=== PATIENT | female | born 2000 | race Caucasian/White ===

== ENCOUNTER → 2023-06-19 10:14 | Outpatient (BNVA) | payer SELFPAY | DX: Z02.83 Encounter for blood-alcohol and blood-drug test (principal) ==

== ENCOUNTER 2024-06-18 09:46 | Outpatient (AMB) | payer BC, SELFPAY ==
--- NOTE | 2024-06-18 09:55 | AM.OFFWIN_ITS ---
Intake Vital Signs 06/18/24 09:56 Height 5 ft 4 in Weight 147 lb BMI 25.2 BP 116/64 Blood Pressure Location Lt brachial Position Sitting Pulse 69 Pulse Source Pulse Oximeter Temp 98.7 F Temp Source Oral Pulse Oximetry (%) 99 Oxygen Delivery Method Room Air Intake Visit Reasons: SCOUTS- Wants Hep B and TB BW testing Intake Note: pt here requesting bloodwork orders Patient Tobacco Use Status: Never used Tobacco Allergies No Known Allergies Allergy (Verified 06/18/24 09:55) Do you need a note to return to daycare/school/sports/work: No HPI SCOUTS- Wants Hep B and TB BW testing HPI Details This note is constructed using voice recognition software. While every effort has been made to ensure accuracy, installation and service technician errors may have been included. The patient is a 23 year old female who presents to the clinic today with request for screening for hepatitis and tuberculosis for school. 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 She has a new patient appointment with her primary care in August, but could not get 1 sooner, and needs testing results prior to starting her next semester in July. She has had no known exposure to hepatitis-B, has had the immunization series. She does not travel outside the country. She has had no known exposure to tuberculosis. She denies fever, chills, cough, shortness of breath, hemoptysis. [facility] Social History Patient Tobacco Use Status: Never used Tobacco Review of Systems Const All systems reviewed & are unremarkable except as noted in HPI and below Physical Exam Vital Signs: Last Vital Signs Temp 98.7 F 06/18/24 09:56 Pulse 69 06/18/24 09:56 BP 116/64 06/18/24 09:56 Pulse Ox 99 06/18/24 09:56 Oxygen Delivery Method Room Air 06/18/24 09:56 BMI result Body Mass Index 25.2 Const General: cooperative, healthy appearing, comfortable, no acute distress and well developed Orientation/consciousness: patient oriented x3 Limitations: no limitations Resp Effort & Inspection: normal respiratory effort and able to speak in complete sentences Neuro General: patient oriented x3 Assessment & Plan Assessment & Plan (1) Need for hepatitis B screening test: Code(s): Z11.59 - Encounter for screening for other viral diseases Plan: Hepatitis-B surface antibody test ordered for patient screening as necessary school. Advised patient to obtain portal so that she is able to print her results as she will likely need to provide the printed results to her school. (2) Encounter for screening for respiratory tuberculosis: Code(s): Z11.1 - Encounter for screening for respiratory tuberculosis Plan: T spot ordered for screening for respiratory tuberculosis, advised patient to obtain portal so that she will be able to print her results for her school. Plan See above for full details and plan. Orders: Orders Hepatitis B Surface Antibody Today Z11.59 - Encounter for screening for other viral diseases T Spot TB Today Z11.1 - Encounter for screening for respiratory tuberculosis Coding Level of Care Code Est Pt Level 3 (93681) Diagnoses Need for hepatitis B screening test Z11.59 Encounter for screening for respiratory tuberculosis Z11.1
[2024-06-18 09:56] VITALS: BP 116/64; PULSE 69; TEMP 37.1; O2SAT 99; BMI 25.2
== END 2024-06-18 10:30 | disposition home or self-care (01) ==
PROVIDERS: Visit Provider Registered Nurse
DX: Z11.59 Encounter for screening for other viral diseases (principal); Z11.1 Encounter for screening for respiratory tuberculosis
CPT/HCPCS: 99213

== ENCOUNTER 2024-06-18 10:14 | Outpatient (REF) | payer BC, SELFPAY ==
[2024-06-19 03:50] LABS: HBS Num1 47.21 mIU/mL (0-7.99); ~Hepatitis B Surface Antibody REACTIVE (Nonreactive)
[2024-06-21 15:34] LABS: TS Negative Control Passed; TS Panel A 0; TS Panel B 0; TS Positive Control Passed; TSpotTB Negative (Negative)
== END 2024-06-18 10:15 | disposition home or self-care (01) ==
LOC: HO.HMGCLDS 10:14
PROVIDERS: PCP Nurse Practitioner Family; Visit Provider Registered Nurse
DX: Z11.59 Encounter for screening for other viral diseases (principal); Z11.1 Encounter for screening for respiratory tuberculosis
CPT/HCPCS: 36415; 86481; 86706

== ENCOUNTER 2024-07-31 11:06 | Outpatient (AMB) | payer BC, SELFPAY ==
--- NOTE | 2024-07-31 11:13 | MHC.PC.OV ---
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 Is last menstrual period known: Yes Last menstrual period: 07/14/24 Post menopausal: No Patient : No Allergies No Known Allergies Allergy (Verified 07/31/24 11:40) Medication List - Last Reconciled 07/31/24 by Emre Decker CNP alprazolam 0.5 mg PO DAILY PRN dextroamphetamine-amphetamine 30 mg ER 1 cap PO DAILY sertraline 50 mg PO DAILY Tobacco use date assessed: 07/31/24 Dental Screening Dental Screen Date: 07/31/24 Did you have a dental visit in the last 12 months?: Yes Did you have a dental problem in the last 6 months where you did not have access to dental care?: No Was dental information given to patient?: Patient has dentist HPI HPI Comments History of Present Illness Details New patient Prior PCP:?[facility]. Dr. Tracy Last office visit/CPE: Had an extended physical exam about 4-5 months ago Acute issue(s): ADHD -She is dextroamphetamine-amphetamine 30 mg ER 1 cap daily Anxiety and depression -she is on sertraline 50 mg daily and alprazolam 0.5 mg daily as needed She reports controlled anxiety and depressive symptoms She generally sleeps and eats well. She exercises routinely PMHx: ADHD, anxiety, depression SurgHx: Ganglion cyst removal FHx: Dad: HTN, cardiovascular disease, HLD. PGM: Asthma. MGM: Cardiovascular disease, DM, HTN. MGF: Clotting disorder SocHx: Nonsmoker. Drinks alcohol once yearly. No recreational drugs Last pap smear test was with [facility] [place] in 11/2022. She signed a release but records not currently available Last eye exam was 2 years with [facility]. She will call and schedule an appointment for an eye exam She notes that she is sexually active, in a monogamous relationship, and has no concerns for STDs Last tetanus vaccine within the last 5 years [facility] Medical History (Updated 07/31/24 @ 11:56 by Emre Decker CNP) ADHD Depression Anxiety Postural orthostatic tachycardia syndrome [POTS] IBS (irritable bowel syndrome) Surgical History (Updated 07/31/24 @ 11:23 by Jennifer Wetzel) History of surgical removal of ganglion cyst Family History (Updated 07/31/24 @ 11:26 by Jennifer Wetzel) Mother FH: mental illness Paternal Grandmother Asthma Father High blood pressure High cholesterol Cardiovascular disease Maternal Grandmother High blood pressure Diabetes Cardiovascular disease Maternal Grandfather Clotting disorder Social History Housing: House Patient Tobacco Use Status: Never used Tobacco e-Cigarette/Vaping Use: Never Used Second Hand Smoke Exposure: No service: No Current occupational status: student Current occupational exposures/hazards: No Cognitive needs: No Hearing needs: No Vision needs: No Female Reproductive History Menstrual Date of last menstrual period: 07/14/24 Questionnaire PHQ-9 Over the last 2 weeks, how often have you been bothered by any of the following problems? 1. Little interest or pleasure in doing things: not at all 2. Feeling down, depressed, or hopeless: not at all 3. Trouble falling or staying asleep, or sleeping too much: several days 4. Feeling tired or having little energy: not at all 5. Poor appetite or overeating: not at all 6. Feeling bad about yourself - or that you are a failure or have let yourself or your family down: not at all 7. Trouble concentrating on things, such as reading the newspaper or watching television: several days 8. Moving or speaking so slowly that other people could have noticed. Or the opposite - being so fidgety or restless that you have been moving around a lot more than usual: not at all 9. Thoughts that you would be better off or of hurting yourself in some way: not at all Total score: 2 Depression Screening Interpretation: Negative Depression Screening Done: Yes 60444 - PHQ-9 Billing: Yes Source: Developed by Drs. Jack Vásquez, Michelle Ventura, Clayton George and colleagues, with an educational eleonora from [employer]. Thrive Questionnaire Date Thrive assessed: 07/31/24 I am a: Patient What is your living situation today?: I have a steady place to live Within the past 12 months, did the food you bought not last and you didn't have the money to get more?: Never true Within the past 12 months, did you worry whether your food would run out before you got money to buy more?: Never true Do you have trouble paying for medicines?: No Do you have trouble getting transportation to medical appointments?: No Do you have trouble paying your heating and electricity bill?: No Do you have trouble taking care of your child, family member or friend?: No Do you have trouble with day-to-day activities such as bathing, preparing meals, shopping, managing finances, etc.?: No Are you currently unemployed and looking for a job?: No Are you interested in more education?: Yes Please select the resources that you would like help with: Education Currently or been in a relationship where the following occur: No concerns reported THRIVE Score: 0 AUDIT C Alcohol Use Questionnaire (AUDIT-C) 1. How often do you have a drink containing alcohol?: Monthly or less 2. How many drinks containing alcohol do you have on a typical day when you are drinking?: 1 or 2 3. How often do you have six or more drinks on one occasion?: Never Total Score: 1 Score Reviewed/Action Taken: Yes PAUL-7 AMB Questionnaire PAUL-7 Date PAUL - 7 assessed: 07/31/24 Feeling nervous, anxious, or on edge: 1 = Several days Not being able to stop or control worryin = Not at all Worrying too much about different things: 1 = Several days Trouble relaxin = Several days Being so restless that it is hard to sit still: 1 = Several days Becoming easily annoyed or irritable: 2 = More than half the days Feeling afraid as if something awful might happen: 0 = Not at all Total PAUL-7 score (0-4 normal; 5-9 mild; 10-14 moderate; 15-21 severe): 6 Source: Developed by Drs. Jack Vásquez, Michelle Ventura, Clayton George and colleagues, with an educational eleonora from [employer]. PAUL-7 Assessment Billing PAUL-7 Assessment Tool: PAUL-7 Assessment 16851 Review of Systems Const Details: Const Denies chills, Denies fatigue, Denies fever(s), Denies headache(s) and Denies weakness ENT Denies dizziness and Denies headache(s) Card Denies chest pain, Denies lightheadedness, Denies dyspnea and Denies other (Palpitations) Resp Denies cough, Denies dyspnea, Denies wheezing and Denies other ( shortness of breath) GI Denies abdominal pain, Denies melena, Denies hematochezia, Denies change in bowel habits, Denies dyspepsia and Denies nausea Denies hematuria and Denies dysuria Musc Denies abnormal gait, Denies myalgias, Denies arthralgias, Denies numbness and Denies tingling Skin/Breast Denies rash, Denies unusual bruising and Denies wounds Neuro Denies abnormal gait, Denies dizziness, Denies headache(s), Denies memory loss, Denies numbness, Denies Sensory deficit (Neuro), Denies tingling and Denies weakness Psych Denies anxiety, Denies depression, Denies memory loss Endo Denies cold intolerance, Denies fatigue, Denies heat intolerance, Denies polydipsia and Denies polyuria Aller/Immun Denies wheezing Physical exam (Primary Care) Vital Signs: Last Vital Signs Temp 97.6 F 07/31/24 11:18 Pulse 76 07/31/24 11:18 Resp 16 07/31/24 11:18 BP 104/72 07/31/24 11:18 Pulse Ox 99 07/31/24 11:18 Oxygen Delivery Method Room Air 07/31/24 11:18 BMI result Body Mass Index 25.1 Tobacco/Smoking Status: Tobacco use Status Tobacco use date assessed 07/31/24 07/31/24 11:18 Patient Tobacco Use Status Never used Tobacco 07/31/24 11:15 e-Cigarette/Vaping Use Never Used 07/31/24 11:18 PHQ-9: PHQ-9 Score PHQ-9: Total score 2 07/31/24 11:28 Depression Screening Interpretation: Negative Thrive Assessment: Date of Thrive Assessment Date Thrive assessed 07/31/24 07/31/24 11:28 Currently or been in a relationship where the following occur: No concerns reported Const Other: General: no acute distress and well developed Nutritional Appearance: well nourished Orientation/consciousness: patient oriented x3 HENMT Head: Yes normocephalic and Yes atraumatic Eyes General: appearance normal, both eyes and all related structures Pupils: Equal, round and reactive pupils present EOM: EOMs intact bilaterally Resp Effort & Inspection: normal respiratory effort Auscultation: clear to auscultation bilaterally Cardio Rate: regular rate Rhythm: regular rhythm Heart sounds: S1 normal heart sound present, S2 normal heart sound present, no gallops, no murmurs and no rubs GI Palpation (GI): No Abdominal aortic bruit present, Soft to palpation, nontender, No hepatosplenomegaly present and No Rebound tenderness present Auscultation: normal bowel sounds General: Yes no CVA tenderness Back/Spine/Pelvis Back: no CVA tenderness Cervical Spine: cervical ROM normal and No Cervical spine tenderness Thoracic/Lumbar Spine: thoraco-lumbar ROM normal, No pain with thoraco-lumbar ROM, No thoracic spinal tenderness and No lumbar spinal tenderness Extrem General: Yes normal to inspection, No edema and No calf tenderness Skin General: warm and dry. Normal skin color. Normal skin turgor Lesions: no lesions Rashes: no rashes Trauma: no lacerations or abrasions Wounds: no wounds Nails: normal Neuro General: patient oriented x3, gait normal and no focal neuro deficit Cranial nerves: Yes Equal, round and reactive pupils present Cognition (Neuro): normal cognition Gait exam (Neuro): Normal gait present Sensory Exam: No Sensory deficit (Neuro) Psych Appearance: grossly normal Affect: normal affect Attitude: cooperative Thought process: Normal thought process present Assessment and Plan Assessment & Plan (1) Anxiety: Code(s): F41.9 - Anxiety disorder, unspecified Plan: She reports controlled anxiety and depressive symptoms PAUL-7 score revealed mild anxiety. PHQ-9 score is normal Continue current treatment regimen Routine exercise encouraged Advised to get lab work done and follow-up in 2-3 weeks for labs review or return sooner with symptoms or concerns Verbalized understanding and agreed with the plan (2) Depression: Code(s): F32.A - Depression, unspecified Plan: Plan as above (3) ADHD: Code(s): F90.9 - Attention-deficit hyperactivity disorder, unspecified type Plan: Plan as above Dextroamphetamine-amphetamine 30 mg ER daily refilled. Advised to take as prescribed (4) Laboratory tests ordered as part of a complete physical exam (CPE): Code(s): Z00.00 - Encounter for general adult medical examination without abnormal findings Plan: She notes that she has not had routine lab work done in over a year. Fasting labs ordered as in preparation of a complete physical exam. Advised to fast for at least 10 hours before getting labs drawn. May drink water Verbalized understanding and agreed with treatment plan. Orders: Orders Comprehensive [place]. Panel Fast Today Z00.00 - Encounter for general adult medical examination without abnormal findings TSH reflex Free T4 Today Z00.00 - Encounter for general adult medical examination without abnormal findings Complete Blood Count Auto Diff Today Z00.00 - Encounter for general adult medical examination without abnormal findings Lipid Panel Today Z00.00 - Encounter for general adult medical examination without abnormal findings UA CC w/rflx Micro + Cult Today Z00.00 - Encounter for general adult medical examination without abnormal findings Medications: Changed From dextroamphetamine-amphetamine 30 mg ER 1 cap PO DAILY 0RF To dextroamphetamine-amphetamine 30 mg ER 1 cap PO DAILY 28 days 28 caps 0RF Coding Level of Care Code New Pt Level 4 (88989) Diagnoses Anxiety F41.9 Depression F32.A ADHD F90.9 Laboratory tests ordered as part of a complete physical exam (CPE) Z00.00 Additional Codes PAUL-7 Assessment Billing - PAUL-7 Assessment Tool: PAUL-7 Assessment 43054 ([id number])
[2024-07-31 11:18] VITALS: BP 104/72; PULSE 76; RESP 16; TEMP 36.4; O2SAT 99; BMI 25.1
== END 2024-07-31 11:57 | disposition home or self-care (01) ==
PROVIDERS: PCP Nurse Practitioner Family; Visit Provider Nurse Practitioner Family
DX: F41.9 Anxiety disorder, unspecified (principal); F32.A Depression, unspecified; F90.9 Attention-deficit hyperactivity disorder, unspecified type; Z00.00 Encounter for general adult medical examination without abnormal findings

== ENCOUNTER → 2024-07-31 11:06 | Outpatient (BNVA) | payer BC, SELFPAY | PROVIDERS: PCP Nurse Practitioner Family; Visit Provider Nurse Practitioner Family | DX: Z00.00 Encounter for general adult medical examination without abnormal findings (principal); F41.9 Anxiety disorder, unspecified; F32.A Depression, unspecified; F90.9 Attention-deficit hyperactivity disorder, unspecified type; Z79.899 Other long term (current) drug therapy | CPT/HCPCS: 96127 ==

== ENCOUNTER 2024-08-17 10:22 | Outpatient (REF) | payer BC, SELFPAY ==
[2024-08-17 13:37] LABS: MANUAL DIFF FLAG NO
[2024-08-17 13:41] LABS: Basophils Percent Auto 0.7 % (0-2); Eosinophils Absolute Auto 0.1 X10*3/uL (0.0-0.4); Eosinophils Percent Auto 1.5 % (0-4); Hematocrit 39.3 % (37.0-47.0); Imm Gran Abs Auto 0.01 X10*3/uL (0.00-0.03); Imm Gran Pct Auto 0.2 % (0.0-0.4); Lymphocytes Absolute Auto 2.2 X10*3/uL (1.2-4.9); Lymphocytes Percent Auto 35.7 % (20-40); Mean Corpuscular HGB Conc 33.1 g/dl (31.0-35.0); Mean Corpuscular Hemoglobin 30.5 pg (27.0-33.0); Mean Corpuscular Volume 92.3 fL (80.0-98.0); Mean Platelet Volume 11.5 fL (9.4-12.3); Monocytes Absolute Auto 0.4 X10*3/uL (0.1-1.2); Monocytes Percent Auto 6.2 % (2-11); Neutrophils Absolute Auto 3.4 x10*3/uL (2.0-8.3); Neutrophils Percent Auto 55.7 % (45-73); Platelet Count 271 X10*3/uL (160-400); Red Blood Count 4.26 X10*6/uL (4.20-5.50); White Blood Count 6.1 X10*3/uL (4.8-10.8)
[2024-08-17 13:56] LABS: Appearance Urine Clear; Color Urine Yellow; Glucose Urine UA Negative (Negative); Leukocyte Esterase Urine Negative (Negative); Nitrite Urine Negative (Negative); PH 5.5 (5.0-9.0); Specific Gravity - Urine 1.025 (1.005-1.025); Urine Blood Negative (Negative); Urine Ketones Negative (Negative); Urine Protein Negative (Neg-Trace)
[2024-08-17 13:59] LABS: Alanine Aminotransferase 9 U/L (0-31); Albumin Level 4.6 g/dL (3.5-5.0); Alkaline Phosphatase 43 U/L (39-117); Anion Gap 11 (12-20); Aspartate Amino Transferase 14 U/L (5-31); Bilirubin Total 1.5 mg/dL (0.0-1.0); Blood Urea Nitrogen 11 mg/dL (9-16); Calcium 10.5 mg/dL (8.4-10.2); Carbon Dioxide 25 mmol/L (22-29); Chloride 107 mmol/L (96-108); Cholesterol 123 mg/dL (<200); Estimated Glomerular Filt Rate > 60; Glucose Fasting 78 mg/dL (60-99); HDL Cholesterol 42 mg/dL (>40); LDL Cholesterol Calculated 71 mg/dL (<100); Potassium 4.1 mmol/L (3.3-5.1); Sodium 139 mmol/L (135-145); Total Protein 7.4 g/dL (6.5-8.0); Triglycerides 54 mg/dL (<150)
[2024-08-17 14:15] LABS: TSH reflex Free T4 0.68 uIU/mL (0.32-4.0)
== END 2024-08-17 10:23 | disposition home or self-care (01) ==
LOC: HO.WFDLDS 10:22
PROVIDERS: Visit Provider Nurse Practitioner Family
DX: Z00.00 Encounter for general adult medical examination without abnormal findings (principal); Z20.2 Contact with and (suspected) exposure to infections with a predominantly sexual mode of transmission
CPT/HCPCS: 36415; 80053; 80061; 81003; 84443; 85025

== ENCOUNTER 2024-08-19 15:47 | Outpatient (AMB) | payer BC, SELFPAY ==
--- NOTE | 2024-08-19 08:33 | A.OFFPC_ITS ---
Intake Visit Reasons: 2-3 wks labs review Intake Note: [facility] [employer] Required: No Allergies No Known Allergies Allergy (Verified 08/19/24 15:46) Tobacco use date assessed: 07/31/24 Dental Screening Dental Screen Date: 07/31/24 HPI HPI Comments History of Present Illness Details 23-year-old female presents for a tele alth visit for review recent lab work She admits to taking her medications as prescribed without adverse reactions She offers no complaints and denies acute symptoms at this time [facility] Medical History (Updated 08/19/24 @ 08:34 by Emre Decker CNP) ADHD Depression Anxiety Postural orthostatic tachycardia syndrome [POTS] IBS (irritable bowel syndrome) Surgical History (Updated 07/31/24 @ 11:23 by Jennifer Wetzel MA) History of surgical removal of ganglion cyst Family History (Updated 07/31/24 @ 11:26 by Jennifer Wetzel MA) Mother FH: mental illness Paternal Grandmother Asthma Father High blood pressure High cholesterol Cardiovascular disease Maternal Grandmother High blood pressure Diabetes Cardiovascular disease Maternal Grandfather Clotting disorder Social History Housing: House Patient Tobacco Use Status: Never used Tobacco e-Cigarette/Vaping Use: Never Used Second Hand Smoke Exposure: No service: No Current occupational status: student Current occupational exposures/hazards: No Cognitive needs: No Hearing needs: No Vision needs: No Questionnaire Thrive Questionnaire Date Thrive assessed: 07/31/24 PAUL-7 AMB Questionnaire PAUL-7 Date PAUL - 7 assessed: 07/31/24 Source: Developed by Drs. Jack Vásquez, Michelle Ventura, Clayton George and colleagues, with an educational eloenora from [employer]. Review of Systems Const Details: Const Denies chills, Denies fatigue, Denies fever(s), Denies headache(s) and Denies weakness ENT Denies dizziness and Denies headache(s) Card Denies chest pain, Denies lightheadedness, Denies dyspnea and Denies other (Palpitations) Resp Denies cough, Denies dyspnea, Denies wheezing and Denies other ( shortness of breath) GI Denies abdominal pain, Denies melena, Denies hematochezia, Denies change in bowel habits, Denies dyspepsia and Denies nausea Denies hematuria and Denies dysuria Musc Denies abnormal gait, Denies myalgias, Denies arthralgias, Denies numbness and Denies tingling Skin/Breast Denies rash, Denies unusual bruising and Denies wounds Neuro Denies abnormal gait, Denies dizziness, Denies headache(s), Denies memory loss, Denies numbness, Denies Sensory deficit (Neuro), Denies tingling and Denies weakness Psych Denies anxiety, Denies depression, Denies memory loss Endo Denies cold intolerance, Denies fatigue, Denies heat intolerance, Denies polydipsia and Denies polyuria Aller/Immun Denies wheezing Physical exam (Primary Care) Tobacco/Smoking Status: Tobacco use Status Tobacco use date assessed 07/31/24 08/19/24 08:36 Patient Tobacco Use Status Never used Tobacco 08/19/24 08:36 e-Cigarette/Vaping Use Never Used 08/19/24 08:36 Thrive Assessment: Date of Thrive Assessment Date Thrive assessed 07/31/24 08/19/24 08:36 Const Other: Telehealth visit. No physical exam Telehealth Telehealth Telehealth Platform: Telephone Location of provider rendering services: practice address Location of patient: address on file Patient Identification confirmed using: Name, : Yes Telehealth method: voice only Patient verbally consented to treatment: Yes Patient verbally consented to billing insurance company: Yes Patient informed of any privacy concerns related to visit: Yes Coding Level of Care Code Tele Est Pt Level 3 (77959) Diagnoses Hypercalcemia E83.52 Hyperbilirubinemia E80.6 Time Spent (min) 15 Assessment & Plan Assessment & Plan (1) Hypercalcemia: Code(s): E83.52 - Hypercalcemia Category: Medical Plan: Recent calcium level is slightly elevated, 10.5 No acute symptoms Likely due to diet rich in vitamin-D. She denies consuming dairy Will recheck calcium levels and make changes as needed Advised to follow-up in 3 months for anxiety, depression, and ADHD or sooner with symptoms or concerns Verbalized understanding and agreed with the plan (2) Hyperbilirubinemia: Code(s): E80.6 - Other disorders of bilirubin metabolism Category: Medical Plan: Recent bilirubin level is slightly elevated, 1.5 No acute symptoms Normal liver function Gilbert syndrome is likely Will recheck bilirubin level Verbalized understanding and agreed with the plan Orders: Orders Calcium Today E83.52 - Hypercalcemia Bilirubin Total Today E80.6 - Other disorders of bilirubin metabolism
== END 2024-08-19 16:08 | disposition home or self-care (01) ==
LOC: HO.HMCFM 15:47
PROVIDERS: PCP Nurse Practitioner Family; Visit Provider Nurse Practitioner Family
DX: E83.52 Hypercalcemia (principal); E80.6 Other disorders of bilirubin metabolism

== ENCOUNTER → 2024-08-19 15:47 | Outpatient (BNVA) | payer BC, SELFPAY | PROVIDERS: PCP Nurse Practitioner Family; Visit Provider Nurse Practitioner Family ==

== ENCOUNTER 2024-12-22 11:10 | Outpatient (REF) | payer BC, SELFPAY ==
--- OUTSIDE RECORDS SUMMARY | 2024-12-22 12:22 | XMS_ITS | Data Portability ---
Author Organization [facility] [address] Address [address] [place] [address] Assessment No assessment recorded. Plan of Treatment Reminders Order Date Submit Date Provider Last Modified By Organization Details Last Modified Time Details Appointments None record ed. Lab None record ed. Referral None record ed. Procedures None record ed. Surgeries None record ed. Imaging None record ed. Medication Orders None record ed. Patient TargetsNo targets recorded. Patient Instructions Encounter Date Encounter Id Patient Instructions Last Modified By Organization Details Last Modified Time 12/01/2022 [id number] This physical does not replace the annual physical to be performed by your PCP. There may be additional screening tests that they will perform that we do not in the urgent care setting. Failure to follow up as recommended may result in significant adverse health consequences. ? If your symptoms worsen or you develop new symptoms that concern you, go to the emergency department for further evaluation. juliet Not available 12/01/2022 12:40:10 Reason for Referral None Reported. Procedures Surgical History Date Name Laterality Status Provider Name and Address Organization Details Recorded Time OC- Physical completed [facility] 12/01/2022 12:22:20 Imaging Results None recorded. Procedure Notes None recorded. Medical Equipment None Reported. Medications Name Sig Start Date Stop Date Status Note LastModified by Organization Details LastModified Time azithromycin 250 mg tablet TAKE 2 TABLETS BY MOUTH FOR 1 DAY THEN TAKE 1 TABLET BY MOUTH DAILY FOR 4 DAYS active Not Available Not Available N ot Available sertraline 100 mg tablet active Not Available Not Available Not Available dextroamphet amine-amphet amine ER 20 mg 24hr capsule,exte nd release active Not Available Not Available N ot Available sertraline 25 mg tablet active Not Available Not Available Not Available dextroamphet amine-amphet amine ER 10 mg 24hr capsule,exte nd release active Not Available Not Available N ot Available polyethylene glycol 3350 17 gram/dose oral powder active Not Available Not Available Not Available SSD 1 % topical cream APPLY TOPICALLY TO THE AFFECTED AREA TWICE DAILY FOR 3 DAYS active Not Available Not Available No t Available lactulose 10 gram/15 mL oral solution TAKE 30 ML BY MOUTH TWICE DAILY active Not Available Not Available Not Available Gavilyte-C 240 gram-22.72 gram-6.72 gram-5.84 gram oral solution MIX AND DRINK IN 8-OUNCE INCREMENTS BY MOUTH DIRECTED active Not Available Not Available No t Available Metamucil 0.4 gram capsule TAKE 1 CAPSULE DAILY START WHEN WEANING THE MIRALAX active Not Available Not Available No t Available Vitals None Recorded Social History None recorded. Functional Status None recorded. Mental Status None recorded. Family History Nothing Reported. Medical History No medical history recorded. Gynecological HistoryNo gynecological history recorded. Obstetrics History GPAL:G 0 P 0 0 0 0 Past Encounters Encounter ID Performer Location Encounter Start Date Encounter Closed Date Diagnosis/Indication Diagnosis SNOMED-CT Code Diagnosis ICD10 Code Diagnosis Note [id number] [address] [facility] [address] [place] [address] 02/18/2020 16:20:13 02/18/2020 16:48:25 [id number] [address] [place] [address] 09/21/2021 13:17:47 09/21/2021 15:24:59 [id number] [place] [address] [facility] [address] [place] [address] 12/01/2022 11:58:27 12/01/2022 12:42:51 History and physical examination, pre-employment [id number] Z02.1 Health Concerns Section Related Observation LastModified by Organization Detai ls LastModified Time None Recorded Concern Status LastModified by Organization Details LastModified Time None Recorded Advance Directives Directive None Recorded Payers Encounter Date Sequence Insurance Name Policy Number Policy Neil Covered Member ID Neil Member ID Guarantor Name 02/18/2020 1 [facility] [id number] Danyell Barahona [id number] Danyell [place] 12/01/2022 DO NOT USE Danyell Brooklyn PHYSICAL Danyell [place] Notes Date Note Type Note Provider Name a nd Address Organization Details Recorded Time 12/01/2022 text/html physical Daniele Zendejas NP [address] [place], [address], [place] - [facility] 12/01/2022 12:40:29 OBGyn Episode No OBEpisode recorded.
--- OUTSIDE RECORDS SUMMARY | 2024-12-22 12:22 | XMS_ITS ---
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 Physical Encounters Encounter Location Date Provider Diagnosis [facility] [address] [place] [address] 08/23/2023 MIKE DUNNE Encounter for gynecological examination (general) (routine) without abnormal findings Z01.419 and Encounter for screening for infections with a predominantly sexual mode of transmission Z11.3 Assessments Encounter Date Diagnosis (ICD Code) Assessment Notes Treatment Notes Treatment Clinical Notes Section Notes 08/23/2023 Encounter for gynecological examination (general) (routine) without abnormal findings (ICD-10 - Z01.419) Discussed cervical cancer screening with cytology every 3 years as per ASCCP guidelines. Advised continued annual pelvic exams. Patient encouraged to increase her level of exercise. SBE technique encouraged/tau ght. Safe sexual practices and STI prevention discussed. 08/23/2023 Encounter for screening for infections with a predominantly sexual mode of transmission (ICD-10 - Z11.3) Plan Of Treatment Treatment Notes Assessment Notes Encounter for gynecological examination (general) (routine) without abnormal findings Discussed cervical cancer screening with cytology every 3 years as per ASCCP guidelines. Advised continued annual pelvic exams. Patient encouraged to increase her level of exercise. SBE technique encouraged/taught. Safe sexual practices and STI prevention discussed. Next Appt Details Follow Up: 1 Year, Reason: Y early Delivery And Installation Subcontractor Exam Provider Name:MIKE Morataya, 12/31/2024 09:00:00 AM, [address], [address], [place], [address], Progress Notes * MARCY MCINTOSHOB:2000 (24 yo F)Acc No.[id number]:08/23/2023 PROGRESS NOTES Patient:?EULOGIO MCINTOSH Provider:?MIKE DUNNE MD :2000???Age:22 Y???Sex:Female D ate:08/23/2023 Address:[address] [place], [place] [id number] Subjective: * Chief Complaints: * ???1. Annual COTTON SEED CULLER Physical. * HPI: ???Constitutional:? Eulogio is a 22yo G0 with LMP x/x/x who presents for her yearly obgyn nurse annual exam. She has been in state of good health since her last exam. She has the following concerns: . She has received the [employer] Covid-19 vaccine. Relationship status: for years. She {IS/IS NOT:} sexually active. Sexual partner(s): male. She does wish to have STI testing. She accepts CDC-recommended GC/CT screening. Menses: Contraception: OCPs (Sprintec) started in 05/2023. She is remembering to take them. She has Kyleena IUD, inserted in 09/2021. We will remove IUD today. She requests removal due to the lengthy periods she was having with Kyleena. The patient has not yet begun screening for cervical cancer - first pap today . The patient does exercise. She exercises x days/week by . . * ROS:?Annual Delivery And Installation Subcontractor Exam ROS:?Bowel habit changes?denies.?Bladder symptoms?denies.?Vaginal discharge, unusual?denies.?Vaginal itch or odor?denies.?weight or appetite changes?denies.?Chest pains, SOB?denies.?depression?denies.?Breast:?Denies?Breast lump.?Denies?Nipple discharge.?Hematology:?Denies?Swollen glands.?Skin:?Patient denies?changing moles.?Psychiatric:?Denies?Anxiety.? * Medical History:?Attention a nd concentration deficit. * Delivery And Installation Subcontractor History:?/ Para?0/0.?Sexual activity?currently sexually active, with men.?Last Pap Smear:?Pap not indicated due to age.?Mammogram:?not due per age.?LMP and menses?04/13/23.?History of STD's:?None.? Control:?Kyleena intrauterine device placed 09/10/21.?Menarche?13.?Gardasil:?series completed.? * OB History:?Total pregnancies?.? Objective: * Vitals:? * Examination: ???General Examination: ?GENERAL APPEARANCE:?in no acute distress,well developed, well nourished,drawing supervisor present in room.?HEAD:?normocephalic, atraumatic.?NECK/THYROID:?neck supple, full range of motion,thyroid normal.?LYMPH NODES:?no axillary or supraclavicular adenopathy.?SKIN:?normal,good turgor,no rashes,no suspicious lesions.?BREASTS:?normal,no dimpling,no discharge,no drainage,no masses palpable bilaterally,nontender.?ABDOMEN:?soft, non-tender, non distended without masses or hepatosplenomegay.?BACK:?no costovertebral angle tenderness.?FEMALE GENITOURINARY:?Vulva without lesions or masses, vagina pink without abnormal discharge, lesions or masses, cervix appears normal and is not tender to palpation, uterus is normal size, mobile, nontender and anteverted, ovaries are not palpable.?NEUROLOGIC:?alert and oriented,gait normal.?PSYCH:?alert, oriented,cognitive function intact,cooperative with exam,good eye contact,mood/affect full range,speech clear.? Assessment: * Assessment: 1.?Encounter for gynecologic al examination (general) (routine) without abnormal findings - Z01.419 (Primary)???2.?Encounter for screening for infections with a predominantly sexual mode of transmission - Z11.3??? Plan: * Treatment: * Follow Up:?1 Year (Reason: Y early Delivery And Installation Subcontractor Exam) * Images: Billing Information: * Visit Code:? 60561 Preventive Care Est Pt. Age 18-39. * Procedure Codes:? * Electronic signature of MIKE DUNNE MD on 12/22/2024 at 12:22 PM EST Sign off status: Pending * Provider:?MIKE DUNNE MD Date:?2022 Generated for Nasreen bailey/Annita/eTransmitting on:?12/22/2024 12:22 PM EST History and Physical Notes * HPI (History of Present Illness) Category Sub-Category Detail Notes Category Not es Constitutional Eulogio is a 22yo G0 with LMP x/x/x who presents for her yearly obgyn nurse annual exam. She has been in state of good health since her last exam. She has the following concerns: . She has received the [employer] Covid-19 vaccine. Relationship status: for years. She {IS/IS NOT:} sexually active. Sexual partner(s): male. She does wish to have STI testing. She accepts CDC-recommended GC/CT screening. Menses: Contraception: OCPs (Sprintec) started in 05/2023. She is remembering to take them. She has Kyleena IUD, inserted in 09/2021. We will remove IUD today. She requests removal due to the lengthy periods she was having with Kyleena. The patient has not yet begun screening for cervical cancer - first pap today . The patient does exercise. She exercises x days/week by . Examination Category Sub-Category Detail Notes Category Not es General Examination GENERAL APPEARANCE: in no ac ugashik distress, well developed, well nourished, drawing supervisor present in room HEAD: normocephalic, atrau matic [...] normal and is not tender to palpation, uterus is normal size, mobile, nontender and anteverted, ovaries are not palpable
--- OUTSIDE RECORDS SUMMARY | 2024-12-22 12:22 | XMS_ITS ---
Author Name [facility] Organization Unknown History of Medication Use Medication Directions Dispensed Refills Start Date End Date Stat us fluticasone (FloNASE) 50 mcg/spray nasal spray 1 spray into each nostril daily. 06/23/2024 active levonorgestrel (Kyleena) 19.5 MG IUD IUD by Intrauterine route. active amphetamine-dextroamp hetamine (ADDERALL XR) 30 MG 24 hr capsule TAKE 1 CAPSULE BY MOUTH DAILY IN THE MORNING 06/05/2024 active sertraline (ZOLOFT) 50 MG tablet Take 50 mg by mouth. 04/22/2024 active predniSONE (DELTASONE) 20 MG tablet Take 1 tablet (20 mg total) by mouth 2 (two) times a day. With food. 06/23/2024 06/27/2024 active Problems Problem Status Onset Date Problem Type Date of Resoluti on Source Acute bacterial sinusitis active EncounterDiagnosisAct [facility]
--- OUTSIDE RECORDS SUMMARY | 2024-12-22 12:22 | XMS_ITS | Encounter Summary ---
Author Organization [facility] Address [address] [place], [place] [address] Phone Care Team Providers Care Blacksmith Helper Name Role Phone Provider, López JENKINS Primary Care Provider [phone] Reason for Visit * Reason Onset Date Comments Med Refill 10/07/2020 Encounter Details Date Type Department Care Team (Late st Contact Info) Description 10/07/2020 [facility]ill [facility] [address] [address] Fabi Shaffer NP Anxiety and depression Social History Tobacco Use Types Packs/Day Years Used Date Smoking Tobacco: Never Smokeless Tobacco: Never Alcohol Use Standard Drinks/Week Comments No 0 (1 standard drink = 0.6 oz pur e alcohol) Hunger/Food Answer Date Recorded No 07/30/2020 Stable Housing Answer Date Recorded No 07/30/2020 Transportation Concerns Answer Date Rec orded No 07/30/2020 Hazards in Home Answer Date Recorded No 09/19/2020 Financing Utilities Answer Date Recorde d No 09/19/2020 Safety at Home Answer Date Recorded No 09/19/2020 Outside Support Answer Date Recorded No 09/19/2020 Understanding Health Concerns Answer Da te Recorded No 09/19/2020 Financing Health Concerns Answer Date R ecorded No 09/19/2020 Missing School or Work Answer Date Robbie rded No 09/19/2020 Comments No Sex and Gender Information Value Date Recorded Sex Assigned at Female 09/23/2019 1:55 PM EST Legal Sex Female 6:15 PM EDT Gender Identity Female 09/23/2019 1:55 PM EST Sexual Orientation Straight 09/23/2019 1: 55 PM EST documented as of this encounter Plan of Treatment Not on file documented as of this encounter Visit Diagnoses Diagnosis Anxiety and depression documented in this encounter Care Teams Blacksmith Helper Relationship Specialty Start Date End Date Provider, MD López [address] [place] [address] PCP - General Pediatrics 11/12/22 08/31/24 documented as of this encounter
--- OUTSIDE RECORDS SUMMARY | 2024-12-22 12:23 | XMS_ITS ---
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 Annual PHARMACY TECHNICIAN INPATIENT Physical. 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 ? She has been in state of good health since her last exam. She has the following concerns: none* ? She has received the Linkage Covid-19 vaccine. ? Relationship status: *partnered for 4 years. She is sexually active. Sexual partner(s): male. She does not wish to have STI testing. She accepts CDC- recommended GC/CT screening. ? Menses: *every 1-2 months, lasting about a week, intermittent flow. ? Contraception:? Kyleena IUD, inserted in 09/2021. ? The patient has never had an abnormal pap smear. The most recent pap smear was 11/29/23 - NIL. Next due for pap in 2026. ? The patient does* exercise. She exercises x 2-3 days/week by doing Pilates at home. 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 * Medical History:? Objective: * Vitals:? * Examination: ???General Examination: ?GENERAL APPEARANCE:?in no acute distress,well developed, well nourished,supervisor dry cell assembly present in room.?HEAD:?normocephalic, atraumatic.?NECK/THYROID:?neck supple, full range [...] range,speech clear.? Assessment: * Assessment: 1.?Encounter for screening f or infections with a predominantly sexual mode of transmission - Z11.3???2.?Encounter for gynecological examination (general) (routine) without abnormal findings - Z01.419 (Primary)???3.?Presence of (intrauterine) contraceptive device - Z97.5??? Plan: * Treatment: 2.?Presence of (intrauterine ) contraceptive device? Notes: Continue Kyleena until 09/2026 or desires conception?? * Follow Up:?1 Year (Reason: Y early Elementary Classroom Teacher Exam) * Images: Billing Information: * Visit Code:? 80570 Preventive Care Est Pt. Age 18-39. * Procedure Codes:? * Electronic signature of MIKE DUNNE MD on 12/22/2024 at 12:23 PM EST Sign off status: Pending * Provider:?MIKE DUNNE MD Date:?2024 Generated for Nasreen bailey/Annita/eTransmitting on:?12/22/2024 12:23 PM EST History and Physical Notes * HPI (History of Present Illness) Category Sub-Category Detail Notes Category Not es Constitutional Eulogio is a 23yo G0 with LMP who presents for her yearly reception specialist annual exam. She has been in state of good health since her last exam. She has the following concerns: none* She has received the Linkage Covid-19 vaccine. Relationship status: *partnered for 4 [...] General Examination GENERAL APPEARANCE: in no ac [place] distress, well developed, well nourished, supervisor dry cell assembly present in room HEAD: normocephalic, atrau matic [...]
--- OUTSIDE RECORDS SUMMARY | 2024-12-22 12:23 | XMS_ITS ---
Author Organization [facility], [facility] Address [address], [place] [id number] Care Team Providers Care Cleaning Custodian Name Role Phone ISIAH SIMENTAL Primary Care Provider Kinsey Ortiz [phone] REASON FOR VISIT f/u ADHD SOCIAL HISTORY Sex Assigned At : Social History Observation Description Sex Assigned At Female Encounters Encounter Location Date Provider Diagnosis [facility], [facility] [address], [place] [phone] 06/09/2024 Kinsey Ortiz PLAN OF TREATMENT No Information Progress Notes * MARCY MCINTOSHOB:2000 (24 yo F)Acc No.[id number]:06/09/2024 Progress Notes Patient:??EULOGIO MCINTOSH Provider:??Kinsey Ortiz DNP :2000?Age:23 Y?Sex:Fe male Date:06/09/2024 Phone: Address:[address] [place], [place] [address] Pcp:ISIAH SIMENTAL Subjective: * Chief Complaints: * ?1. f/u ADHD. * Medical History:?? Objective: Assessment: Plan: * Treatment: * Billing Information: * Visit Code:?? * Procedure Codes:?? * Sign off status: Pending * Provider:??Kinsey Ortiz DNP Date:??04/2024
--- OUTSIDE RECORDS SUMMARY | 2024-12-22 12:23 | XMS_ITS | Patient Health Record ---
Author Organization [employer] Address [address] [place] [id number] Care Team Providers Care Pickling Machine Operator Name Role Phone KAMILLEISIAH Primary Care Provider Kinsey Ortiz Unavailable [phone] ALLERGIES No Known Allergies RESULTS Component Value Reference Range Notes CHLAMYDIA/N. GONORRHOEAE RNA , TMA, UROGENITAL (15634) Reviewed date:02/25/2024 08:27:29 AM Interpretation: Performing Lab:NL2, [facility] [id number] Terrie Smith Notes/Report: FASTING:UNKNOWN SPECIMEN DROPPED OFF FASTING: UNKNOWN CHLAMYDIA TRACHOMATIS RNA, TMA, UROGENITAL NOT DETECTED NOT DETECTED NEISSERIA GONORRHOEAE RNA, TMA, UROGENITAL NOT DETECTED NOT DETECTED COMMENT The analytical performance characteristics of this assay, when used to test SurePath(TM) specimens have been determined by [facility]. The modifications have not been cleared or approved by the FDA. This assay has been validated pursuant to the CLIA regulations and is used for clinical purposes. For additional information, please refer to https://education.[employer].com/faq/VMJ913 (This link is being provided for information/ educational purposes only.) REASON FOR REFERRAL No Information MEDICATIONS Medication SIG (Take, Route, Frequency, Duration) Notes Start Date End Date Status Cephalexin 500 MG 1 capsule Orally Fou r times a day for 7 days Not-Takin g Amphetamine-Dextroamphet ER 30 MG 1 capsule in the morning Orally Once a day for 28 days 06/05/2024 Active Sertraline HCl 50 MG 1 tablet Orally Onc e a day for 90 days 02/26/2024 Active Sulfamethoxazole-Trimeth oprim 800-160 MG 1 tablet Orally Twice a day Not-Taking ALPRAZolam 0.5 MG 1 tablet Orally once a day for 15 days 03/17/2024 Active SOCIAL HISTORY Tobacco Use: Social History Observation Description Date Details (start date - stop date) Never Smoker NA - NA Sex Assigned At : Social History Observation Description Sex Assigned At Female Tobacco Use/Smoking Question Answer Notes Tobacco use: nonsmoker Section Notes: Lives in [place], [place] with boyfriend, mom & brother & brother's girlfriend & MGMother Lives in [place], [place] with boyfriend, mom & brother & brother's girlfriend & MGMother Lives in [place], [place] with boyfriend, mom & brother & brother's girlfriend & MGMother Lives in [place], [place] with boyfriend, mom & brother & brother's girlfriend & MGMother Lives in [place], [place] with boyfriend, mom & brother & brother's girlfriend & MGMother Lives in [place], [place] with boyfriend, mom & brother & brother's girlfriend & MGMother Lives in [place], [place] with boyfriend, mom & brother & brother's girlfriend & MGMother Lives in [place], [place] with boyfriend, mom & brother & brother's girlfriend & MGMother Lives in [place], [place] with boyfriend, mom & brother & brother's girlfriend & MGMother Lives in [place], [place] with boyfriend, mom & brother & brother's girlfriend & MGMother Lives in [place], [place] with boyfriend, mom & brother & brother's girlfriend & MGMother PROBLEMS Problem Type ICD Code Onset Dates Problem Status W/U Status Risk SNOMED Code Notes Problem Mixed hyperlipidemia (E78.2) Active confirmed 585021189 Problem ADHD (attention deficit hyperactivity disorder), combined type (F90.2) Active confirmed 05853323 Problem Moderate depressive disorder (F32.A) Active confirmed 339883091 Problem Serum calcium elevated (E83.52) Active confirmed 57470246 Problem Situational anxiety (F41.8) Active confirmed 09305352 Problem 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) Active confirmed 472250104 VITAL SIGNS Heart Rate 90 /min 02/18/2024 Height-cm 162.56 cm 02/18/2024 Oximetry 98 % 02/18/2024 Blood pressure diastolic 62 mm Hg 02/18/2024 Weight-kg 73.48 kg 02/18/2024 Height 64 in 02/18/2024 Blood pressure systolic 98 mm Hg 02/18/2024 Weight 162.0 lbs 02/18/2024 BMI 27.8 kg/m2 02/18/2024 Encounters Encounter Location Date Provider Diagnosis [address] [id number] 06/09/2024 Kinsey Ortiz [address] [id number] 02/18/2024 Kinsey Ortiz Encounter for genera l adult medical examination without abnormal findings Z00.00 ; Encounter for screening for depression Z13.31 ; Encounter for screening for other disorder Z13.89 ; ADHD (attention deficit hyperactivity disorder), combined type F90.2 ; Encounter for screening for infections with a predominantly sexual mode of transmission Z11.3 and Situational anxiety F41.[address] [id number] 01/09/2024 Kinsey Ortiz ADHD (attention deficit hyperactivity disorder), combined type F90.[address] [id number] 02/10/2024 Kinsey Ortiz ADHD (attention deficit hyperactivity disorder), combined type F90.[address] [id number] 03/17/2024 Kinsey Ortiz Situational anxiety F41.[address] [id number] 04/21/2024 Kinsey Ortiz ADHD (attention deficit hyperactivity disorder), combined type F90.2 and Situational anxiety F41.[address] [id number] 06/05/2024 Kinsey Ortiz ADHD (attention deficit hyperactivity disorder), combined type F90.[address] [id number] 06/09/2024 Kinsey Ortiz [facility], [facility] [address] [place], [place] [phone] 01/10/2024 Kinsey Ortiz [facility] [address] [place], [place] [id number] 01/13/2024 Kinsey Ortiz [facility] [address] [place], [place] [id number] 02/28/2024 Kinsey Ortiz Situational anxiety F41.8 [facility] [address] [place], [place] [id number] 03/12/2024 Kinsey Ortiz ADHD (attention deficit hyperactivity disorder), combined type F90.2 ASSESSMENTS Encounter Date Diagnosis Assessment Notes Treatment Notes Treatment Clinical Notes Section Notes 01/09/2024 ADHD (attention deficit hyperactivity disorder), combined type (ICD-10 - F90.2) 02/10/2024 ADHD (attention deficit hyperactivity disorder), combined type (ICD-10 - F90.2) 02/18/2024 Encounter for general adult medical examination without abnormal findings (ICD-10 - Z00.00) We discussed short and long-term health goals. The exam today was without concerns, states feel safe at home. Reports having working CO2 and Smoke detectors. Encouraged to wear sunscreen. Reports wearing a seatbelt when driving or as a passenger. Encourage regular exercise of moderate intensity 30 min 5x/week. 02/18/2024 Encounter for screening for depression (ICD-10 - Z13.31) PHQ9 Score: 5 (sleep, energy, appetite)- somewhat diffcult low risk for major depressive disorder 02/28/2024 Situational anxiety (ICD-10 - F41.8) 03/12/2024 ADHD (attention deficit hyperactivity disorder), combined type (ICD-10 - F90.2) 03/17/2024 Situational anxiety (ICD-10 - F41.8) 04/21/2024 ADHD (attention deficit hyperactivity disorder), combined type (ICD-10 - F90.2) 06/05/2024 ADHD (attention deficit hyperactivity disorder), combined type (ICD-10 - F90.2) 02/18/2024 Encounter for screening for other disorder (ICD-10 - Z13.89) CAGE Questions Adapted to Include Drug Use (CAGE-AID) 1. Have you ever felt you ought to cut down on your drinking or drug use? N 2. Have people annoyed you by criticizing your drinking or drug use? N 3. Have you felt bad or guilty about your drinking or drug use? N 4. Have you ever had a drink or used drugs first thing in the morning to steady your nerves or to get rid of a hangover (eye-heel sorter)? N Total Score: 0 Scoring: Item responses on the CAGE questions are scored 0 for no and 1 for yes answers, with a higher score being an indication of alcohol problems. A total score of two or greater is considered clinically significant. 04/21/2024 Situational anxiety (ICD-10 - F41.8) 02/18/2024 ADHD (attention deficit hyperactivity disorder), combined type (ICD-10 - F90.2) Not stable on current dose/regimen. Denies CP, palpitations, anorexia and/or drop off. ADD/ADHD Score indicative of poor control. It is important to understand that stimulants are Schedule-II drugs, which are controlled medications by the TRAN (Drug Enforcement Administration). This means we cannot give refills for your stimulant medication unless a new prescription is written for each refill. Schedule-II medications cannot be refilled by telephone. Misuse of stimulant medications is a common and recognized concern in the [facility]. THIS OFFICE WILL NOT TOLERATE MISUSE. EVEN THE APPEARANCE OF MISUSE IS ENOUGH JUSTIFICATION TO CEASE STIMULANT TREATMENT. THERE WILL BE NO REFILLS GIVEN FOR LOST OR STOLEN PRESCRIPTIONS. Do not give your prescription medication to anyone. Keep your medication in a safe place where others do not have access. Will increase to 30mg XR F/u in 4 months. Pt will be allowed to have 3 refills prior to in office follow ups. MassPat is checked prior to every follow up as best practice. 02/18/2024 Encounter for screening for infections with a predominantly sexual mode of transmission (ICD-10 - Z11.3) Urine screening per guidelines 02/18/2024 Situational anxiety (ICD-10 - F41.8) Physical activity, a healthy diet, regular sleep, and relaxation exercises may all help reduce anxiety. Joining a support group may also help. To manage symptoms effectively, its best to avoid caffeine, alcohol, and nicotine. See a doctor immediately if you: are thinking about suicide and or can't complete activities of daily living. 02/18/2024 Other PLAN OF TREATMENT Future Test Test Name Order Date THYROID PEROXIDASE AND THYROGLOBULIN ANT IBODIES (7260) 10/17/2023 THYROID PANEL WITH TSH (0144) 10/17/2023 DRUG MONITOR, BASE PANEL, W/CONF, URINE (98612) 10/17/2023 CARDIO IQ(R) LIPID PANEL (04957) 023 COMPREHENSIVE METABOLIC PANEL (43480) CARDIO IQ(R) LIPOPROTEIN (a) (71007) CBC (INCLUDES DIFF/PLT) (6399) URINALYSIS, COMPLETE W/REFLEX TO CULTURE (3020) 10/17/2023 CARDIO IQ(R) HS CRP (42067) 10/17/2023 CARDIO IQ(R) APOLIPOPROTEIN A1 (42676) 1 12/18/2022 CARDIO IQ(R) APOLIPOPROTEIN B (86203) CARDIO IQ(R) HOMOCYSTEINE (03387) 2022 CARDIO IQ(R) INSULIN (48948) 10/17/2023 CARDIO IQ(R) VITAMIN D, 25 HYDROXY (9173 5) 10/17/2023 DRUG MONITOR,AMPHETAMINE, W/CONF, URINE (36158) 10/17/2023 HEPATITIS B IMMUNITY PANEL (7105) 2023 QUANTIFERON(R)-TB GOLD PLUS, 1 TUBE (606 58) 02/26/2024 Insurance Providers Payer Name Payer Address Payer Phone Subscriber Number Group Number Insured Name Patient Relationship to Insured Coverage Start Date Coverage End Date [facility] [address] [place] [address] [id number] EULOGIO MCINTOSH Self - patient is the insured MEDICAL (GENERAL) HISTORY Medical History History ICD Code Anxiety Depression Fx - left foot Irritable Bowel Syndrome Migraines Pneumonia Surgical History Surgery Date(Month/Year) Colonoscopy
--- OUTSIDE RECORDS SUMMARY | 2024-12-22 12:23 | XMS_ITS | Encounter Summary ---
Author Organization [facility] Address [address] [place] [address] Phone Care Team Providers Care Customer Development Representative Name Role Phone Provider, López JENKINS Primary Care Provider [phone] Encounter Details Date Type Department Care Team (Late st Contact Info) Description 03/23/2018 Conversion [facility]counter [facility] [address] [address] Violetta Sparks MD [address] [place] [address] Social History Tobacco Use Types Packs/Day Years Used Date Smoking Tobacco: Never Assessed Comments Unknown Sex and Gender Information Value Date Recorded Sex Assigned at Female 09/23/2019 1:55 PM EST Legal Sex Female 6:15 PM EDT Gender Identity Female 09/23/2019 1:55 PM EST Sexual Orientation Straight 09/23/2019 1: 55 PM EST documented as of this encounter Plan of Treatment Not on file documented as of this encounter Visit Diagnoses Not on filedocumented in this encounter Care Teams Customer Development Representative Relationship Specialty Start Date End Date Provider, MD López [address] [place] [id number] PCP - General Pediatrics 11/12/22 08/31/24 documented as of this encounter
--- OUTSIDE RECORDS SUMMARY | 2024-12-22 12:23 | XMS_ITS ---
Author Organization [facility], [facility] Address [address] [place], [place] [phone] Care Team Providers Care Advisor To Command In Combat Name Role Phone ISIAH SIMENTAL Primary Care Provider [phone] Kinsey Ortiz Unavailable [phone] REASON FOR VISIT School letter SOCIAL HISTORY Sex Assigned At : Social History Observation Description Sex Assigned At Female Encounters Encounter Location Date Provider Diagnosis [facility], [facility] [address] [place], [place] [phone] 06/09/2024 Kinsey Ortiz PLAN OF TREATMENT No Information Progress Notes * MARCY MCINTOSHOB:2000 (23 yo F)Acc No.[id number]:06/09/2024 Patient:??EULOGIO MCINTOSH :2000?Age:23 Y?Sex:Fe male Phone: Address:[address] [place] [address] * true * Date:??
--- OUTSIDE RECORDS SUMMARY | 2024-12-22 12:23 | XMS_ITS ---
Author Organization [facility] Address [address] [place] [phone] Care Team Providers Care Supervisor Of Operations Name Role Phone ISIAH SIMENTAL Primary Care Provider Kinsey Ortiz Unavailable [phone] REASON FOR VISIT Refills MEDICATIONS Medication SIG (Take, Route, Frequency, Duration) Notes Start Date End Date Status Amphetamine-Dextroamphet ER 30 MG 1 capsule in the morning Orally Once a day for 28 days 06/05/2024 Active SOCIAL HISTORY Sex Assigned At : Social History Observation Description Sex Assigned At Female Encounters Encounter Location Date Provider Diagnosis [facility], [address] [phone] 06/05/2024 Kinsey Ortiz ADHD (attention deficit hyperactivity disorder), combined type F90.2 ASSESSMENTS Encounter Date Diagnosis Assessment Notes Treatment Notes Treatment Clinical Notes Section Notes 06/05/2024 ADHD (attention deficit hyperactivity disorder), combined type (ICD-10 - F90.2) PLAN OF TREATMENT Medication Medication Name Sig Start Date Stop Date Notes Amphetamine-Dextroamphet ER 30 MG 1 capsule in the morning Orally Once a day for 28 days 06/05/2024 Progress Notes * MARCY MCINTOSHOB:2000 (23 yo F)Acc No.[id number]:06/05/2024 Patient:??DAYNASHIRLEYEN :2000?Age:23 Y?Sex:Fe male Phone: Address:[address] [place] [phone] * Refills?? Refill Amphetamine-Dextroamphet ER Capsule Extended Release 24 Hour, 30 MG, Orally, 28 Capsule, 1 capsule in the morning, Once a day, 28 days, Refills=0 * true * Date:??
--- OUTSIDE RECORDS SUMMARY | 2024-12-22 12:24 | XMS_ITS ---
Author Organization Cost Effective [employer] [facility] Address [address] [place] [address] Care Team Providers Care Student Assistant Name Role Phone MIKE DUNNE Unavailable [phone] Allergies No Known Allergies Results Component Value Reference Range Notes THIN PREP,HPV IF ASCUS, CT/G C (21-29YR) Reviewed date:12/05/2023 08:25:47 AM Interpretation: Performing Lab:Testing performed or reported by [facility], a Service of [facility], [address] [place] [address] Corona Vogt MD, Professor Of Graphic Design [facility]# [id number] Notes/Report: Patient Name: EULOGIO MCINTOSH Patient : 2000 (Age: 22) Lab Collection Date: 11/29/2023 Accession Date: 11/29/2023 Sign Out Date: 12/04/2023 Tissue Source: 1: THINPREP COMMUNITY HEALTH AGENT PAP TEST, CERVICAL: Final Diagnosis: NEGATIVE FOR INTRAEPITHELIAL LESION OR MALIGNANCY. Shift in sabi suggestive of bacterial vaginosis. Satisfactory for evaluation. Endocervical/transformation zone ABSENT. Clinical History: Date of Last Menstrual Period: 10/31/2023 Menstrual History: not available Contraceptive History: not available Ancillary Testing: HPV (ASCUS) Chlamydia/GC Case imaged by the ThinPrep Imaging System with manual rescreening or review. Performed at [facility] department of Cytology, Yasir Montes [facility] Clinical History (other): Z01.419, Z72.51, 1ST PAP Phone #: [phone], On-Call Pathologist: [id number] REASON FOR VISIT Annual COMMUNITY HEALTH AGENT Physical Medications Medication SIG (Take, Route, Frequency, Duration) Notes Start Date End Date Status Kyleena 19.5 MG as directed Intrauterine Active Sertraline HCl 100 MG 1 tablet Orally On ce a day for 30 day(s) Active ALPRAZolam 0.5 MG 1 tablet Orally Twice a day uses prn Active Adderall XR 20 MG 1 capsule in the mor corrina Orally Once a day Active Social History Tobacco Use: Social History Observation Description Date Details (start date - stop date) Never Smoker NA - NA Tobacco Use/Smoking Question Answer Notes Are you a nonsmoker Alcohol Screen (Audit-C) Question Answer Notes Did you have a drink contain ing alcohol in the past year? Yes How often did you have a dri nk containing alcohol in the past year? Monthly or less (1 point) How many drinks did you have on a typical day when you were drinking in the past year? 1 or 2 drinks (0 point) How often did you have 6 or more drinks on one occasion in the past year? Never (0 point) Points 1 Interpretation Negative Vital Signs Temperature 97.3 degrees Fahrenheit 11/29/19 24 Blood pressure systolic 110 mm Hg 11/29/19 24 Blood pressure diastolic 78 mm Hg 024 Height 64 in 11/29/2023 Weight 170 lbs 11/29/2023 BMI 29.18 kg/m2 11/29/2023 Encounters Encounter Location Date Provider Diagnosis [address] [address] 11/29/2023 MIKE DUNNE Encounter for gynecological examination (general) (routine) without abnormal findings Z01.419 ; Encounter for screening for infections with a predominantly sexual mode of transmission Z11.3 ; High risk heterosexual behavior Z72.51 and Presence of (intrauterine) contraceptive device Z97.5 Assessments Encounter Date Diagnosis (ICD Code) Assessment Notes Treatment Notes Treatment Clinical Notes Section Notes 11/29/2023 Encounter for gynecological examination (general) (routine) without abnormal findings (ICD-10 - Z01.419) Discussed cervical cancer screening with cytology every 3 years as per ASCCP guidelines. Advised continued annual pelvic exams. Patient encouraged to increase her level of exercise. SBE technique encouraged/tau ght. Safe sexual practices and STI prevention discussed. 11/29/2023 Encounter for screening for infections with a predominantly sexual mode of transmission (ICD-10 - Z11.3) 11/29/2023 High risk heterosexual behavior (ICD-10 - Z72.51) 11/29/2023 Presence of (intrauterine) contraceptive device (ICD-10 - Z97.5) Continue until 09/2026 Plan Of Treatment Treatment Notes Assessment Notes Encounter for gynecological examination (general) (routine) without abnormal findings Discussed cervical cancer screening with cytology every 3 years as per ASCCP guidelines. Advised continued annual pelvic exams. Patient encouraged to increase her level of exercise. SBE technique encouraged/taught. Safe sexual practices and STI prevention discussed. Presence of (intrauterine) c ontraceptive device Continue leena until 09/2026 Next Appt Details Follow Up: 1 Year, Reason: Y early Photo Mask Processor Exam Provider Name:MIKE Morataya, 12/31/2024 09:00:00 AM, [address], [address], [place], [address], Progress Notes * DAYNAMARCYOB:2000 (22 yo F)Acc No.[id number]:11/29/2023 PROGRESS NOTES Patient:?DAYNA EULOGIO Provider:?MIKE DUNNE MD :2000???Age:22 Y???Sex:Female D ate:11/29/2023 Address:[address] [place], [place] [id number] Subjective: * Chief Complaints: * ???Annual COMMUNITY HEALTH AGENT Physical * HPI: ???Constitutional:? 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 ? She has been in state of good health since her last exam. She has the following concerns: none ? She has received the [employer] Covid-19 vaccine. ? Relationship status: partnered for 3 years. She is sexually active. Sexual partner(s): male. She does not wish to have STI testing. She accepts CDC- recommended GC/CT screening. ? Menses: every 1-2 months, lasting about a week, intermittent flow. ? Contraception: OCPs (Sprintec) started in 05/2023. She only used one or 2 months - she started feeling bloating and like she was on a pill so she stopped. She has Kyleena IUD, inserted in 09/2021. We will not remove IUD today. She reports that the periods have gotten head athletic trainer since being on OCPs, but they are still irregular. ? The patient has not yet begun screening for cervical cancer - first pap today . ? The patient does exercise. She exercises x 2-3 days/week by doing Pilates at home. * ROS:?Annual Photo Mask Processor Exam ROS:?Bowel habit changes?denies.?Bladder symptoms?denies.?Vaginal discharge, unusual?denies.?Vaginal itch or odor?denies.?weight or appetite changes?denies.?Chest pains, SOB?denies.?depression? admits, in good control on meds, denies SI/HI.?Breast:?Denies?Breast lump.?Denies?Nipple discharge.?Hematology:?Denies?Swollen glands.?Skin:?Patient denies?changing moles.?Psychiatric:?Denies?Anxiety.? * Medical History:? * Photo Mask Processor History:?/ Para?0/0.?Sexual activity?currently sexually active, with men.?Last Pap Smear:?11/29/23.?Mammogram:?not due per age.?LMP and menses?10/31/23.?History of STD's:?None.? Control:?Kyleena intrauterine device placed 09/10/21.?Menarche?13.?Gardasil:?series completed.? * OB History:?Total pregnancies?.? * Surgical History:?Denies Pas t Surgical History * Hospitalization/Major Diagno stic Procedure:?Denies Past Hospitalization * Family History:?Mother: shauna saleh 52 yrs, anxiety.?Father: alive 51 yrs, CABG x 3 in 2014.?Maternal Grand Mother: alive, uterine cancer, ?breast cancer?.?Brother Saleem: alive 29 yrs, well.? * Social History:?Tobacco Use:?Tobacco Use/Smoking?Are you a?nonsmoker ???Drugs/Alcohol:?Drugs?Have you used drugs other than those for medical reasons in the past 12 months??No ?Alcohol Screen (Audit-C)?Did you have a drink containing alcohol in the past year??Yes ?How often did you have a drink containing alcohol in the past year??Monthly or less (1 point) ?How many drinks did you have on a typical day when you were drinking in the past year??1 or 2 drinks (0 point) ?How often did you have 6 or more drinks on one occasion in the past year??Never (0 point) ?Points?1 ?Interpretation?Negative ???Miscellaneous:?no Domestic violence. ?Exercise: Gym, Walks, Cardio. ?Home smoke detector use: yes, smoke detectors, carbon monoxide detector. ?Housing: living with relatives. ?Living with: mom, boyfriend, brother, brother's girlfriend, MGM. ?Marital status: single. 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 ?Pets: dogs: 3 (sabine singletary, castillo doshakir, dacantonio). ?no Sexual abuse. ?no Verbal abuse. * Medications:?TakingALPRAZola m 0.5 MG Tablet 1 tablet Orally Twice a day, Notes: uses prnAdderall XR 20 MG Capsule Extended Release 24 Hour 1 capsule in the morning Orally Once a dayKyleena 19.5 MG Intrauterine Device as directed Intrauterine Sertraline HCl 100 MG Tablet 1 tablet Orally Once a dayTaking ALPRAZolam 0.5 MG Tablet 1 tablet Orally Twice a day, Notes: uses prnTaking Adderall XR 20 MG Capsule Extended Release 24 Hour 1 capsule in the morning Orally Once a dayTaking Kyleena 19.5 MG Intrauterine Device as directed Intrauterine Taking Sertraline HCl 100 MG Tablet 1 tablet Orally Once a dayDiscontinuedSprintec 28 0.25-35 MG-MCG Tablet 1 tablet Orally Once a dayMedication List reviewed and reconciled with the patientDiscontinued Sprintec 28 0.25-35 MG-MCG Tablet 1 tablet Orally Once a dayMedication List reviewed and reconciled with the patient * Allergies:?N.K.D.A.no[Allerg ies Verified] Objective: * Vitals:?Ht: 64 in, Wt:170 lb s, BMI:29.18 Index, BP:110/78 mm Hg, Temp:97.3 F. * Examination: ???General Examination: ?GENERAL APPEARANCE:?in no acute distress,well developed, well nourished,internal affairs investigator present in room.?HEAD:?normocephalic, atraumatic.?NECK/THYROID:?neck supple, full range [...] a predominantly sexual mode of transmission - Z11.3?2.?Encounter for gynecological examination (general) (routine) without abnormal findings - Z01.419 (Primary)?3.?High risk heterosexual behavior - Z72.51?4.?Presence of (intrauterine) contraceptive device - Z97.5? Plan: * Treatment: ? Value Reference Range ?CYTOLOGY, COMMUNITY HEALTH AGENT Patient Name: EULOGIO MCINTOSH - * VAGINAL/CERVICAL, LMP This lab was reviewed by MIKE DUNNE on 12/05/2023 at 08:25 AM EST Notes: Discussed cervical cancer screening with cytology every 3 years as per ASCCP guidelines. Advised continued annual pelvic exams. Patient encouraged to increase her level of exercise. SBE technique encouraged/taught. Safe sexual practices and STI prevention discussed. ??2.?High risk heterosexual behavior?LAB: THIN PREP,HPV IF ASCUS, CT/GC (21-29YR)* ? Value Reference Range ?CYTOLOGY, COMMUNITY HEALTH AGENT Patient Name: EULOGIO MCINTOSH - * VAGINAL/CERVICAL, LMP This lab was reviewed by MIKE DUNNE on 12/05/2023 at 08:25 AM EST 3.?Presence of (intrauterine) contraceptive device? Notes: Continue Kyleena until 09/2026?? * Procedure Codes:? * Follow Up:?1 Year (Reason: Y early Photo Mask Processor Exam) * Images: Billing Information: * Visit Code:? 02456 Preventive Care Est Pt. Age 18-39. * Procedure Codes:? 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 She has been in state of good health since her last exam. She has the following concerns: none She has received the [employer] Covid-19 vaccine. Relationship status: partnered for 3 years. She is sexually active. Sexual partner(s): male. She does not wish to have STI testing. She accepts CDC-recommended GC/CT screening. Menses: every 1-2 months, lasting about a week, intermittent flow. Contraception: OCPs (Sprintec) started in 05/2023. She only used one or 2 months - she started feeling bloating and like she was on a pill so she stopped. She has Kyleena IUD, inserted in 09/2021. We will not remove IUD today. She reports that the periods have gotten head athletic trainer since being on OCPs, but they are still irregular. The patient has not yet begun screening for cervical cancer - first pap today . The patient does exercise. She exercises x 2-3 days/week by doing Pilates at home. Examination Category Sub-Category Detail Notes Category Not es General Examination GENERAL APPEARANCE: in no ac nulato distress, well developed, well nourished, internal affairs investigator present in room HEAD: normocephalic, atrau matic [...]
--- OUTSIDE RECORDS SUMMARY | 2024-12-22 12:24 | XMS_ITS | Clinical Summary ---
Author Organization [facility] Address [address] [place] [address] Care Team Providers Care Wire Loop Machine Operator Name Role Phone Pcp, No Primary Care Provider Unavailabl e Allergies No known active allergies Medications Medication Sig Dispensed Refills Start Date End Date Status amphetamine-dextroa mphetamine (ADDERALL XR) 30 MG 24 hr capsule TAKE 1 CAPSULE BY MOUTH DAILY IN THE MORNING 06/05/2024 Active sertraline (ZOLOFT) 50 MG tablet Take 50 mg by mouth. 04/22/2024 Ac tive levonorgestrel (Kyleena) 19.5 MG IUD IUD by Intrauterine route. Active fluticasone (FloNASE) 50 mcg/spray nasal sprayIndications:Ac neha bacterial sinusitis 1 spray into each nostril daily. 1 each 06/23/2024 Active predniSONE (DELTASONE) 20 MG tabletIndications:A cute bacterial sinusitis Take 1 tablet (20 mg total) by mouth 2 (two) times a day. With food. 6 tablet 06/23/2024 Active Social History Tobacco Use Types Packs/Day Years Used Date Smoking Tobacco: Never Assessed Sex and Gender Information Value Date Recorded Sex Assigned at Not on file Gender Identity Not on file Sexual Orientation Not on file Last Filed Vital Signs Vital Sign Reading Time Taken Comments Blood Pressure 110/75 06/23/2024 10:47 AM EDT Pulse 77 06/23/2024 10:47 AM EDT Temperature 36.9 ??C (98.5 ??F) 06/23/2024 10:47 AM E DT Respiratory Rate - - Oxygen Saturation 97% 06/23/2024 10:47 AM EDT Inhaled Oxygen Concentration - - Weight - - Height - - Body Mass Index - - Plan of Treatment Health Maintenance Due Date Last Done Comments Hepatitis C Virus Screening 2001 HIV Screening 2014 HPV Vaccines (1 - 3-dose series) 2016 DTaP/Tdap/Td Vaccines (1 - Tdap) 2020 Hepatitis B Vaccines (1 of 3 - 19+ 3-dose series) 2020 Pap Smear (Ages 21-65) 2022 Influenza Vaccine 06/04/2024 08/16/2021, , 09/23/2019, Additional history exists COVID-19 Vaccine ( season) 2024 01/29/2021 Pneumococcal Vaccine: Pediatric (0-5 Years) and At-Risk Patients (6 to 49 Years) Aged Out No longer eligible based on patient's age to complete this topic Care Teams Wire Loop Machine Operator Relationship Specialty Start Date End Date Pcp, No PCP - General General Medicine 06/23/24
--- OUTSIDE RECORDS SUMMARY | 2024-12-22 12:24 | XMS_ITS | Patient Health Record ---
Author Organization [facility] Address [address] [place] [address] Care Team Providers Care Enginehouse Brakeman Name Role Phone MIKE DUNNE Unavailable [phone] Allergies No Known Allergies Reason For Referral No Information Medications Medication SIG (Take, Route, Frequency, Duration) [...] Never (0 point) Points 1 Interpretation Negative Problems Problem Type SNOMED Code ICD Code Onset Dates Problem Status W/U Status Risk Notes Problem Abnormal uterine bleeding (47126382209527) Abnormal uterine and vaginal bleeding, unspecified (N93.9) Active confirmed Problem Attention and concentration deficit (R41.840) Active confirmed Problem High risk heterosexual behavior (120103062185194) High risk heterosexual behavior (Z72.51) Active confirmed Problem Intrauterine contraceptive device in situ (finding) (903156932) Presence of (intrauterine) contraceptive device (Z97.5) Active confirmed Problem Body mass index 35.00 to 39.99 (422746621387481) Body mass index [BMI] 38.0-38.9, adult (Z68.38) Active confirmed Plan Of Treatment Pending Test Test Name Order Date Test, Urine 09/20/2021 CHLAMYDIA GC AMP PROBE 01/12/2022 ULTRASOUND: PELVIC W/TRANSVAGINAL 2021 Next Appt Details Provider Name:MIKE Morataya, 12/31/2024 09:00:00 AM, [address], [address], [place], [address], Insurance Providers Payer Name Payer Address Payer Phone Subscriber Number Group Number Insured Name Patient Relationship to Insured Coverage Start Date Coverage End Date [employer] [place] [address] [place] [address] [id number] DANNIE MCINTOSH Child - Insured has Financial Responsibility Medical (General) History Medical History History ICD Code Attention and concentration deficit R41. 840 Anxiety disorder, unspecified F41.9 Major depressive disorder, recurrent sev ere without psychotic features F33.2 Surgical History Surgery Date(Month/Year)
--- OUTSIDE RECORDS SUMMARY | 2024-12-22 12:24 | XMS_ITS | Clinical Summary ---
Author Organization [facility] Address [address] [place] [address] Phone Care Team Providers Care Chess Instructor Name Role Phone Unavailable Primary Care Provider Unavailabl e Allergies No known active allergies Medications albuterol HFA 108 (90 Base) MCG/ACT inhalerIndication s:Cough Inhale 2 puffs every 4 (four) hours as needed for wheezing or shortness of breath. 1 Units 1 02/13/20 20 Active Levonorgestrel (Kyleena) 19.5 MG intrauterine device by Intrauterine route. Active polyethylene glycol (MiraLax) 17 GM/SCOOP powderIndications :Slow transit constipation I capful BID until stooling daily without problems, then decrease to one capful at night and incorporate Metamucil, then wean off Miralax.Stir and dissolve powder into 4 to 8 ounces of beverage and then drink. 340 g 1 12/04/19 22 Active sertraline 100 MG tabletIndications :Anxiety and depression TAKE 1 TABLET(100 MG) BY MOUTH DAILY 30 tablet 1 10/11/20 22 Active amphetamine-dextr oamphetamine XR (Adderall XR) 20 MG 24 hr capsuleIndication s:Attention deficit disorder (ADD) without hyperactivity Take 1 capsule (20 mg total) by mouth every morning. 30 capsule 11/22/19 23 Active Active Problems Problem Noted Date Diagnosed Date Tachycardia 04/04/2022 Assessment & Plan (04/04/2022 4:41 PM EDT): Will start with EKG and then referral to cardiology to evaluate for tachycardia, discussed possibility of SVTs or POTS. Stay hydrated, move slowly. Call if HR sustained over 150, or any syncope. Slow transit constipation 2021 Overview (05/14/2022): 02/23: GI-trial of linzess and colonoscopy 04/25: internal hemorrhoids grade 1 found on colonoscopy Assessment & Plan (2021 8:08 AM EST): Needs bowel clean-out. Advised glycerin suppository once a day for next three days, take one square of laxative through the weekend and another dose of mag citrate tomorrow ( Saturday12/17/21). continue miralax and metamucil. Encourage drinking prune or pear juice along with lots of water. If not better by Saturday then will consider fleet enema. Eulogio is aware of symptoms that would require speaking to composite bond worker provider or going to ER. Attention deficit disorder (ADD) without hyperac tivity 08/25/2021 Assessment & Plan (04/04/2022 4:46 PM EDT): Well managed with adderall xr20mg. Notices a huge difference when she doesn't take it, finds it very helpful. Assessment & Plan (01/03/2022 5:00 PM EST): As above, will increase to Adderall XR 20mg. Plan to have her continue sertraline 125mg for the next 2 weeks as I do not want to risk making too many changes at once and worsening her anxiety then will start to taper the sertraline down by 25mg every 3 weeks as tolerated. Glad to hear that since treating her ADHD her anxiety has significantly improved. Assessment & Plan (10/05/2021 4:27 PM EST): Positive response from concerta just with side effects. She is interested in trying a different stimulant, although I cant promise it wont bring about headaches again. Will try Adderall [id number] sent in as a partial fill request if she does not tolerate it. If positive response with out side effects can call for refill when all out. Plan to follow up in 3 months. Assessment & Plan (08/25/2021 12:58 PM EDT): Eulogio reports that for years she has been struggling with inattention, racing thoughts, difficulty with organization. She and her therapist and her mother have been questioning the possibility of ADD this whole time and wonder if this is the reason her SSRIs have not been helpful to her over the years. I agree that she does have underlying executive dysfunction and ADD and its possible that she has become so overwhelmed and anxious from her symptoms that this has become the main concern over the years. We reviewed stimulant medications and she would like to try it. We will start with Concerta 18mg. Discussed side effects, safety profile, how we do a medication trial. Reviewed that these are scheduled medications. She is to call monthly for refills and keep up with her med checks. If after two weeks she is not noticing any benefit from the medication, she can try taking two (36mg). We will plan to check in either in the office or virtual visit in one month. Dysmenorrhea 10/24/2020 Assessment & Plan (08/25/2021 12:59 PM EDT): Going well on OCP but looking to get IUD, wait list with [employer]. Assessment & Plan (02/01/2021 11:59 AM EDT): Did not respond great to the Apri. [place] more anxious on it, periods still painful. She is interested in getting an IUD but would like to stay on the pill until then. Numbers provided for [employer]. Assessment & Plan (10/24/2020 2:15 PM EST): Discussed risks and benefits of OCPs. Discussed risk of blood clots and symptoms to watch for. Discussed that taking antibiotics decrease the effectiveness of the OCP at preventing so best to abstain from sex at that time. To take OCP at the same time q day. Discussed what to do if misses doses. Recommend to always using condoms if sexually active since OCPs do not prevent STDs Functional abdominal pain syndrome 05/15/2018 Overview (07/21/2018): Seen by Dr. Cuadra, labs normal, put her on Bentyl. EKG in case she needs amitriptyline; FODMap diet Assessment & Plan (01/03/2022 5:00 PM EST): Waiting composite bond worker back from [facility]. Assessment & Plan (12/26/2021 7:06 PM EST): Will trial amitriptyline. Noted there may also be a relationship to constipation and to a dysfunctional period cycle this month. Advised good stress management, healthy diet, plenty of water Assessment & Plan (05/15/2018 3:47 PM EDT): Referred to Gastro, not taking the ranitidine. Anxiety and depression 01/24/2017 Overview (04/04/2022): 01/03/22 sertraline 125 working on titrating down with addition of adderall which has been very beneficial. 01/03-01/14: sertraline 125mg 01/15-02/04: sertraline 100mg 04/25: stable at 100mg Assessment & Plan (04/04/2022 4:46 PM EDT): Doing well at 100mg sertraline. Stable. Tried titrating down to 75mg but anxiety worsened. Would like to stay at this current dose. Discussed option of titrating down in the future when ready. Assessment & Plan (01/03/2022 5:00 PM EST): Mood and anxiety have been much more stable the last few weeks with the addition of adderall than it has been in years. The hopes have been if we can treat her adhd we may be able to wean her sertraline. She is interested in trying to wean her sertraline now. We are making an adjustment to the adderall right now as she feels the 10mg is minimally helpful. Will increase to adderall 20mg first. From 01/03- 01/14 she will continue sertraline 125mg. Then we will decrease sertraline by 25mg every 3 weeks. Starting 01/15-02/04 she can decrease to sertraline 100mg. Then starting 02/05 decrease to sertraline 75mg. If at any time a decrease worsens her anxiety she can go back up to previous stable dose. She will let me know how things are going in a few weeks. Assessment & Plan (10/05/2021 4:26 PM EST): Discussed the need for psychiatry moving forward-Eulogio and her mom have been trying to find someone. Mom has a friend who may be able to get her in. I also recommended trying [facility] or [facility]. She has been on a few SSRIs and at the upper limit of what I am comfortable prescribing with sertraline. Our hope was that we would see if by treating her ADD we could try coming down off the sertraline if she found her mood to stabilize if the anxiety was driven by untreated ADD. For now she will stay at the current dose of sertraline and really try getting in with psychiatry for further management/adjustments of medications-strongly encouraged counseling as well. Assessment & Plan (08/25/2021 12:59 PM EDT): No changes with the sertraline 125mg right now, but if the Concerta proves to be helpful in the long run we may be able to try decreasing her anxiety meds, possibility of even coming off it in the future if this is correct. She is working on finding a new therapist at this time. Assessment & Plan (02/01/2021 11:58 AM EDT): Overall the increase in sertraline to 100mg has been going great. Significant reduction in PHQ/PAUL scores. She did feel her anxiety worsened with addition of the OCP so we will adjust the dosing of the OCP and see if that helps. If still feeling more anxious she will reach out to me and we can discuss either an increase in the sertraline, may reach out to [facility] first, or she will talk with her therapist about a psychiatrist as she has trialed several other SSRIs before. Continue working with therapist every other week. Plan for next med check in 6 months, sooner if needed. Assessment & Plan (10/24/2020 2:15 PM EST): PHQ9 and GAD7 scores continue to decrease. Really happy to hear she is doing well on the sertraline. Will increase to 100mg as hoping we will notice full benefit at this dose. She has some 50mg tablets left so she will take 2 a day until done and then will call for a refill and can send over new 100mg tablet rx. Doing well with therapy, and has psychiatrist if needed in the future as she has already tried a few other SSRIs. Call for any SI or go to ER. Assessment & Plan (08/29/2020 2:14 PM EDT): PHQ9 and GAD7 scores improved but now reports her symptoms are making it harder to complete ADLs. She continues to report very low down days despite some improvement with her anxiety. She tried BID dosing on her own and has found it more helpful in side effects, however I do have concerns that she may not be getting full effectiveness from dose by splitting it. We can try increasing further to 75mg daily for 2 weeks and then if still no positive improvement to increase further to 100mg. We discussed getting back into therapy and finding a medication prescriber as I feel we will likely need to consult with them for next steps if the increased sertraline is not effective. I provided mom with number for [facility] and discussed website psychologytoday to find a med prescriber in her area. We will follow up in 1 month, sooner for any concerns. Call for any SI or go to ER. Assessment & Plan (08/10/2020 3:45 PM EDT): No change in mood over the last few weeks. We will increase her medication to 37.5mg for the next 2 weeks and then may increase further to 50mg if needed. Would like to see her back in the office in 3 weeks time for a recheck. I have sent over a new prescription as she will run out in 1 week with the new adjustments. I have given her the number for [facility] to set up apt to discuss psychiatry as she has trialed many different SSRIs in the past. To call us, crisis, or go to ER if she is having SI or self harm. Call for any concerns in the meantime. Assessment & Plan (07/27/2020 9:09 AM EDT): PHQ9 and GAD7 indicative of severe anxiety and depression. She has previously trialed prozac which helped symptoms for a while then stopped working and she weaned herself off of it, then lexapro and celexa which she stopped due to sleep side effects. She has been in therapy and grief counseling in the past but did not find it helpful as she did not want to bring up prior trauma. She does use distraction and grounding techniques that she learned in therapy to help with her frequent panic attacks. She is interested in trying Zoloft as her mom has been on it and it works well for her. We reviewed how SSRIs work, side effects, and black box warning of increased SI. She will continue working on grounding and breathing techniques. I encouraged her to try therapy one more time and recommended Candis Drake in our office as a bridge. I would also like her to call around for a medication prescriber as she has tried a few different SSRIs in the past. I provided her the number for crisis and to call if she is experiencing any SI. We will follow up in two weeks for a med check, sooner for any concerns. Assessment & Plan (09/23/2019 1:49 PM EST): 09/22 working to find med prescriber: In grievance therapy loss of step father Assessment & Plan (05/15/2018 3:44 PM EDT): Doing well, took herself off Prozac- weaned it off successfully! BMI (body mass index) pediat sarah, > 99% for age, obese child, tertiary care intervention 01/24/2017 Assessment & Plan (10/24/2020 2:17 PM EST): Last about 11 lbs since last visit in August. Keep up the good work, eating healthy well balanced meals, watching portion sizes, and incorporating exercise into daily routines. Assessment & Plan (05/15/2018 4:08 PM EDT): We talked about her diet. Labs ordered to complete study - LFTs, glucose and creatinine normal- ordered lipid and vitamin d Resolved Problems Problem Noted Date Diagnosed Date Resolved Date Left lower lobe pneumonia 02/26/2020 Overview (02/26/2020): 02/25/20. Migraine without aura and wi thout status migrainosus, not intractable 01/24/2017 10/24/2020 Assessment & Plan (05/15/2018 3:45 PM EDT): Inactive Immunizations Immunization Administration Dates Next Due COVID-19 Pfizer, monovalent, 12+ years 1 DTaP 01/14/2007, 3,06/22/2002,04/21,02/22/2002 HPV, Quadrivalent 07/21/2014,03/01/2014,12/30/19 14 Hep A, ped/adol 06/15/2020,09/23/2019 Hep B, ped/adol 09/29/2002,01/20/2002,2001 Hib (PRP-T) 03/30/2003, 2,02/22/2002,01/20 IPV 01/14/2007, 3,04/21/2002,02/25 Influenza, injectable, MDCK, preservative free, quadrivalent 11/20/2017 Influenza, injectable, quadrivalent 09/08/2010 Influenza, injectable, quadr ivalent, preservative free 08/16/2021,07/27/2020,09/23/2019,07/21 MMR 12/18/2005,03/30/2003 Meningococcal B Bexsero 07/27/2020,06/15/2020 Meningococcal Conj (Menactra) MCV4P 09/23/2019,0 12/30/2013 Pneumococcal Conjugate 12/18/2002,2001,04/21/2002,02/25 Tdap 12/30/2013 Varicella 09/21/2009,12/18/2002 Family History Medical History Relation Name Comments No Known Problems Father Fuad Heart disease (Premature) Maternal Grandfather Hyperlipidemia Maternal Grandfather Atrial fibrillation Maternal Grandmother No Known Problems Mother Xiomara No Known Problems Paternal Grandfather No Known Problems Paternal Grandmother Relation Name Status Comments Brother Saleem [place] Alive Father Fuad Alive Maternal Grandfather Alive Maternal Grandmother Alive psoriat ic arthrits, bled on Xarelto Mother Xiomara Alive Paternal Grandfather Alive Paternal Grandmother Alive Social History Tobacco Use Types Packs/Day Years Used Date Smoking Tobacco: Never Smokeless Tobacco: Never Tobacco Cessation:Counseling Given: Yes Alcohol Use Standard Drinks/Week Comments No 0 (1 standard drink = 0.6 oz pur e alcohol) Hunger/Food Answer Date Recorded In the last 12 months, did y ou or your family ever eat less than you felt you should because there wasn't enough money for food? No 10/24/2020 Stable Housing Answer Date Recorded Are you worried that in the next 2 months you may not have stable housing? No 10/24/2020 Transportation Concerns Answer Date Rec orded In the last 12 months, have you or your family ever had to go without healthcare because you didn't have a way to get there? No 10/24/2020 Hazards in Home Answer Date Recorded Think about the place you li ve. Do you have problems with any of the following? Pests (mice or roaches), mold, no/not working smoke detectors, water leaks, no window guards. No 2019 Financing Utilities Answer Date Recorde d In the last 12 months, has t he electric, gas, oil, or water company threatened to shut off your services in your home? No 10/24/2020 Safety at Home Answer Date Recorded Are you or your family worried about feeling saf e in your home? No 10/24/2020 Outside Support Answer Date Recorded Do you feel that you need mo re support from other people or programs to help you care for yourself or your family? No 10/24/2020 Understanding Health Concerns Answer Da te Recorded Do you need help understandi ng your or your child's healthcare needs (diagnosis, medications, plan, etc.)? No 10/24/2020 Financing Health Concerns Answer Date R ecorded In the last 12 months, was t here a time when your child needed to see a doctor or get medications or supplies but could not because of cost? No 10/24/2020 Missing School or Work Answer Date Robbie rded Did you or your child miss s chool or work because of a health problem that could have been avoided? No 10/24/2020 Comments No Sex and Gender Information Value Date Recorded Sex Assigned at Female 09/23/2019 1:55 PM EST Legal Sex Female 6:15 PM EDT Gender Identity Female 09/23/2019 1:55 PM EST Sexual Orientation Straight 09/23/2019 1: 55 PM EST Last Filed Vital Signs Vital Sign Reading Time Taken Comments Blood Pressure 138/70 04/12/2022 6:23 PM EDT Pulse 102 02/25/2020 4:33 PM EDT Temperature 36.8 ??C (98.2 ??F) 07/31/2022 5:58 PM ED T Respiratory Rate - - Oxygen Saturation 94% 02/25/2020 4:33 PM EDT Inhaled Oxygen Concentration - - Weight 90.4 kg (199 lb 6 oz) 04/12/2022 6:23 PM EDT Height 166.4 cm (5' 5.5 ) 04/12/2022 6:23 PM EDT Body Mass Index 32.67 04/12/2022 6:23 PM EDT Plan of Treatment Health Maintenance Due Date Last Done Comments DTaP,Tdap,and Td Vaccines (7 - Td or Tdap) 12/30/2023 12/30/2013, 01/14/2007, 03/30/2003, Additional history exists Influenza Vaccines (#1) 2024 11/02/20 22, 08/16/2021, 07/27/2020, Additional history exists COVID-19 Vaccine (2023-2 5 season) 2024 08/30/2021, 02/19/2021, 01/29/2021 Hepatitis B Vaccines Completed 09/29/2002, 01/20/2002, 2001 Pneumococcal Vaccine Completed 12/18/2002, 06/12/2002, 04/21/2002, Additional history exists HIB Vaccines Completed 03/30/2003, 04/04, 02/22/2002, Additional history exists MMR Vaccines Completed 12/18/2005, 03/30/2003 IPV Vaccines Completed 01/14/2007, 06/05, 04/21/2002, Additional history exists Varicella Vaccines Completed 09/21/2009, 12/18/2002 HPV Vaccines Completed 07/21/2014, 02/03, 12/30/2013 Meningococcal Vaccine Completed 09/23/2019, 014 Hepatitis A Vaccines Completed 06/15/2020, 09/23/20 19 Men B Vaccine Completed 07/27/2020, 06/15/2020 Procedures * Due to [place] state law, this organization might not be sharing sensitive test results. Procedure Name Priority Date/Time Associated Diagnosis Comments CHLAMYDIA AND GONORRHEA, AMPLIFIED Routine 12/25/2021 2:16 PM EST Abdominal pain, unspecified abdominal location from Last 3 Months or Most Recently Relevant to Health Maintenance Results * Due to [place] state law, this organization might not be sharing sensitive test results. * Chlamydia and Gonorrhea, Amplified (12/25/2021 2:16 PM EST) Chlamydia Trachomatis, DNA Probe NEGATIVE (NEG) [facility] Comment: No Chlamydia Trachomatis RNA detected in this patient's sample ? (REFERENCE RANGE/NORMAL VALUE: NOT DETECTED) ? Note: This test uses microwave engineer- mediated amplification method to detect rRNA from C. Trachomatis URINE GC AMP PROBE NEGATIVE (NEG) [facility] Comment: No Neisseria Gonorrhoeae RNA detected in this patient's sample ? (REFERENCE RANGE/NORMAL VALUE: NOT DETECTED) ? NOTE: This test uses microwave engineer-mediated amplification method to detect rRNA from N.Gonorrhoeae. A negative result does not preclude infection. In the case of a negative urine result, testing of an endocervical(female) or urethral (male) specimen is recommended if there is high clinical suspicion of infection. Due to very high sensitivity of Nucleic Acid Amplification Test, false positive results may occur. Therefore, specimen handling is extremely important. In patients in whom the disease is unlikely, additional sample for testing should be considered after an initial positive result. The performance characteristics of this test have not been evaluated in children. The Aptima Combo2 assay is not intended for the evaluation of suspected sexual abuse or for other medico-legal indications. The ordering provider should assess if the patient had consensual sex without risk of sexual abuse. Consult the [facility] if needed. Contact phone number . Therapeutic failure or success cannot be determined with the Aptima Combo2 assay since nucleic acid may persist following appropriate antimicrobial therapy. The Centers for Disease Control and Prevention (CDC) recommends confirmatory retesting using culture or a different nucleic acid amplification test when positive results occur, if indicated. Testing performed or reported by [facility], a Service of [facility], [facility] [place] [address] Corona Vogt MD, Panel Lay Up Worker [facility]# [id number] Urine (Urine) 12/25/2021 2:1 6 PM EST 12/25/2021 5:48 PM EST Fabi Shaffer [facility] MICROBIOLOGY - GENER AL ORDERABLES Final Result [facility] from Last 3 Months or Most Recently Relevant to Health Maintenance Insurance COMMERCIAL
[2024-12-22 15:08] LABS: Calcium 9.8 mg/dL (8.4-10.2)
== END 2024-12-22 11:11 | disposition home or self-care (01) ==
LOC: HO.WFDLDS 11:10
PROVIDERS: Visit Provider Nurse Practitioner Family
DX: E83.52 Hypercalcemia (principal); E80.6 Other disorders of bilirubin metabolism
CPT/HCPCS: 36415; 82247; 82310

== ENCOUNTER 2024-12-24 15:18 | Outpatient (AMB) | payer BC, SELFPAY ==
--- NOTE | 2024-12-24 15:46 | MHC.PC.OV ---
Vital Signs 12/24/24 15:48 Height 5 ft 4 in Weight 129 lb 6 oz BMI 22.2 BP 123/70 Blood Pressure Location Rt brachial Position Sitting Respiration 16 Pulse 75 Pulse Source Pulse Oximeter Temp 98.2 F Temp Source Oral Pulse Oximetry (%) 100 Oxygen Delivery Method Room Air Intake Visit Reasons: 3 MTH f/u Anxiety, depression, ADHD lab review Intake Note: patient here for 3 month follow up on anxiety and depression, ADHD and lab review Medical/Surgery Registered Nurse Required: No Is last menstrual period known: Yes Last menstrual period: 12/15/24 Post menopausal: No Patient : No Allergies No Known Allergies Allergy (Verified 12/24/24 16:00) Medication List - Last Reconciled 12/24/24 by Emre Decker CNP alprazolam 0.5 mg PO DAILY PRN dextroamphetamine-amphetamine 30 mg ER 1 cap PO DAILY 28 days sertraline 50 mg PO DAILY Tobacco use date assessed: 12/24/24 Dental Screening Dental Screen Date: 07/31/24 Did you have a dental visit in the last 12 months?: Yes Did you have a dental problem in the last 6 months where you did not have access to dental care?: No Was dental information given to patient?: Patient has dentist HPI HPI Comments History of Present Illness Details 24-year-old female presents for anxiety, depression, ADHD, and recent lab results follow-up. She admits to taking her medications as prescribed without adverse reactions. She notes controlled anxiety, depressive, and ADHD symptoms. She states that her appetite is decreased and has steadily lose weight over the past year. She denies pain, heat intolerance, or other associated symptoms. [facility] Medical History (Updated 12/24/24 @ 16:30 by Emre Decker CNP) ADHD Depression Anxiety Postural orthostatic tachycardia syndrome [POTS] IBS (irritable bowel syndrome) Surgical History (Updated 07/31/24 @ 11:23 by Jennifer Wetzel MA) History of surgical removal of ganglion cyst Family History (Updated 07/31/24 @ 11:26 by Jennifer Wetzel MA) Mother FH: mental illness Paternal Grandmother Asthma Father High blood pressure High cholesterol Cardiovascular disease Maternal Grandmother High blood pressure Diabetes Cardiovascular disease Maternal Grandfather Clotting disorder Social History Housing: House Patient Tobacco Use Status: Never used Tobacco e-Cigarette/Vaping Use: Never Used Second Hand Smoke Exposure: No service: No Current occupational status: student Current occupational exposures/hazards: No Cognitive needs: No Hearing needs: No Vision needs: No Female Reproductive History Menstrual Date of last menstrual period: 12/15/24 Questionnaire PHQ-9 Over the last 2 weeks, how often have you been bothered by any of the following problems? 1. Little interest or pleasure in doing things: not at all 2. Feeling down, depressed, or hopeless: not at all 3. Trouble falling or staying asleep, or sleeping too much: not at all 4. Feeling tired or having little energy: not at all 5. Poor appetite or overeating: several days 6. Feeling bad about yourself - or that you are a failure or have let yourself or your family down: not at all 7. Trouble concentrating on things, such as reading the newspaper or watching television: not at all 8. Moving or speaking so slowly that other people could have noticed. Or the opposite - being so fidgety or restless that you have been moving around a lot more than usual: not at all 9. Thoughts that you would be better off or of hurting yourself in some way: not at all Total score: 1 Depression Screening Interpretation: Negative Depression Screening Done: Yes 89811 - PHQ-9 Billing: Yes Source: Developed by Drs. Jack Vásquez, Michelle Ventura, Clayton George and colleagues, with an educational eleonora from [employer]. Thrive Questionnaire Date Thrive assessed: 12/24/24 I am a: Patient What is your living situation today?: I have a steady place to live Within the past 12 months, did the food you bought not last and you didn't have the money to get more?: Never true Within the past 12 months, did you worry whether your food would run out before you got money to buy more?: Never true Do you have trouble paying for medicines?: No Do you have trouble getting transportation to medical appointments?: No Do you have trouble paying your heating and electricity bill?: No Do you have trouble taking care of your child, family member or friend?: No Do you have trouble with day-to-day activities such as bathing, preparing meals, shopping, managing finances, etc.?: No Are you currently unemployed and looking for a job?: No Are you interested in more education?: No Please select the resources that you would like help with: None Currently or been in a relationship where the following occur: No concerns reported THRIVE Score: 0 AUDIT C Alcohol Use Questionnaire (AUDIT-C) 1. How often do you have a drink containing alcohol?: Never Total Score: 0 PAUL-7 AMB Questionnaire PAUL-7 Date PAUL - 7 assessed: 12/24/24 Feeling nervous, anxious, or on edge: 1 = Several days Not being able to stop or control worryin = Not at all Worrying too much about different things: 0 = Not at all Trouble relaxin = Several days Being so restless that it is hard to sit still: 0 = Not at all Becoming easily annoyed or irritable: 0 = Not at all Feeling afraid as if something awful might happen: 0 = Not at all Total PAUL-7 score (0-4 normal; 5-9 mild; 10-14 moderate; 15-21 severe): 2 Source: Developed by Drs. Jack Vásquez, Michelle Ventura, Clayton George and colleagues, with an educational eelonora from [employer]. PAUL-7 Assessment Billing PAUL-7 Assessment Tool: PAUL-7 Assessment 82881 Review of Systems Const Details: Const Denies chills, Denies fatigue, Denies fever(s), Denies headache(s) and Denies weakness ENT Denies dizziness and Denies headache(s) Card Denies chest pain, Denies lightheadedness, Denies dyspnea and Denies other (Palpitations) Resp Denies cough, Denies dyspnea, Denies wheezing and Denies other ( shortness of breath) GI Denies abdominal pain, Denies melena, Denies hematochezia, Denies change in bowel habits, Denies dyspepsia and Denies nausea Denies hematuria and Denies dysuria Musc Denies abnormal gait, Denies myalgias, Denies arthralgias, Denies numbness and Denies tingling Skin/Breast Denies rash, Denies unusual bruising and Denies wounds Neuro Denies abnormal gait, Denies dizziness, Denies headache(s), Denies memory loss, Denies numbness, Denies Sensory deficit (Neuro), Denies tingling and Denies weakness Psych Denies anxiety, Denies depression, Denies memory loss Endo Denies cold intolerance, Denies fatigue, Denies heat intolerance, Denies polydipsia and Denies polyuria Aller/Immun Denies wheezing Physical exam (Primary Care) Vital Signs: Last Vital Signs Temp 98.2 F 12/24/24 15:48 Pulse 75 12/24/24 15:48 Resp 16 12/24/24 15:48 BP 123/70 12/24/24 15:48 Pulse Ox 100 12/24/24 15:48 Oxygen Delivery Method Room Air 12/24/24 15:48 BMI result Body Mass Index 22.2 Tobacco/Smoking Status: Tobacco use Status Tobacco use date assessed 12/24/24 12/24/24 15:52 Patient Tobacco Use Status Never used Tobacco 12/24/24 15:52 e-Cigarette/Vaping Use Never Used 12/24/24 15:52 PHQ-9: PHQ-9 Score PHQ-9: Total score 1 12/24/24 15:52 Depression Screening Interpretation: Negative Thrive Assessment: Date of Thrive Assessment Date Thrive assessed 12/24/24 12/24/24 15:52 Currently or been in a relationship where the following occur: No concerns reported Const Other: General: no acute distress and well developed Nutritional Appearance: well nourished Orientation/consciousness: patient oriented x3 HENMT Head: Yes normocephalic and Yes atraumatic Eyes General: appearance normal, both eyes and all related structures Pupils: Equal, round and reactive pupils present EOM: EOMs intact bilaterally Resp Effort & Inspection: normal respiratory effort Auscultation: clear to auscultation bilaterally Cardio Rate: regular rate Rhythm: regular rhythm Heart sounds: S1 normal heart sound present, S2 normal heart sound present, no gallops, no murmurs and no rubs GI Palpation (GI): No Abdominal aortic bruit present, Soft to palpation, nontender, No hepatosplenomegaly present and No Rebound tenderness present Auscultation: normal bowel sounds General: Yes no CVA tenderness Back/Spine/Pelvis Back: no CVA tenderness Cervical Spine: cervical ROM normal and No Cervical spine tenderness Thoracic/Lumbar Spine: thoraco-lumbar ROM normal, No pain with thoraco-lumbar ROM, No thoracic spinal tenderness and No lumbar spinal tenderness Extrem General: Yes normal to inspection, No edema and No calf tenderness Skin General: warm and dry. Normal skin color. Normal skin turgor Neuro General: patient oriented x3, gait normal and no focal neuro deficit Cranial nerves: Yes Equal, round and reactive pupils present Cognition (Neuro): normal cognition Gait exam (Neuro): Normal gait present Sensory Exam: No Sensory deficit (Neuro) Psych Appearance: grossly normal Affect: normal affect Attitude: cooperative Thought process: Normal thought process present Coding Level of Care Code Est Pt Level 4 (60818) Diagnoses Anxiety F41.9 Depression F32.A ADHD F90.9 Weight loss, unintentional R63.4 Additional Codes PAUL-7 Assessment Billing - PAUL-7 Assessment Tool: PAUL-7 Assessment 63468 ([id number]) PHQ-9 - 47846 - PHQ-9 Billing: Yes ([id number]) Assessment & Plan Assessment & Plan (1) Anxiety: Code(s): F41.9 - Anxiety disorder, unspecified Category: Medical Plan: Controlled anxiety, depressive, and ADHD symptoms. Continue current treatment regimen. Routine exercise encouraged. Follow-up with symptoms or concerns. Verbalized understanding and agreed with the treatment plan. (2) Depression: Code(s): F32.A - Depression, unspecified Category: Medical Plan: Plan as above. (3) ADHD: Code(s): F90.9 - Attention-deficit hyperactivity disorder, unspecified type Category: Medical Plan: Plan as above. (4) Weight loss, unintentional: Code(s): R63.4 - Abnormal weight loss Category: Medical Plan: She has had loss of appetite and weight loss over the course of a year. She lost 18 lb in the past 6 months. No night sweats, heat intolerance, or sleep disturbance. She is on dextroamphetamine-amphetamine 30 mg ER daily for ADHD which may be a contributing factor. She agrees to decrease dextroamphetamine-amphetamine to 20 mg ER daily. Encouraged to eat foods high in protein. Follow-up in 1 month or sooner with worsening or new symptoms. Verbalized understanding and agreed with treatment plan. Medications: New dextroamphetamine-amphetamine 20 mg ER Partial Fill upon patient request. 20 mg PO QAM 30 days 28 caps 0RF Discontinued dextroamphetamine-amphetamine 30 mg ER Discontinued Reason: Doctor's Order 1 cap PO DAILY 28 days 28 caps 0RF
[2024-12-24 15:48] VITALS: BP 123/70; PULSE 75; RESP 16; TEMP 36.8; O2SAT 100; BMI 22.2
--- OUTSIDE RECORDS SUMMARY | 2024-12-24 16:21 | XMS_ITS | Data Portability ---
Author Organization [facility] [address] Address [address] [place] [address] Assessment No assessment recorded. Plan of Treatment [...] By Organization Details Last Modified Time 12/01/2022 [id number] This physical does not replace the annual [...] SNOMED-CT Code Diagnosis ICD10 Code Diagnosis Note [id number] [address] [address] [place] [address] 02/18/2020 16:20:13 02/18/2020 16:48:25 [id number] [address] [place] [address] 09/21/2021 13:17:47 09/21/2021 15:24:59 [id number] [place] [address] [facility] [address] [place] [address] 12/01/2022 11:58:27 12/01/2022 12:42:51 History and physical examination, pre-employment [id number] Z02.1 Health Concerns Section Related Observation LastModified by Organization Detai ls LastModified Time None Recorded Concern Status LastModified by Organization Details LastModified Time None Recorded Advance Directives Directive None Recorded Payers Encounter Date Sequence Insurance Name Policy Number Policy Neil Covered Member ID Neil Member ID Guarantor Name 02/18/2020 1 [facility] [id number] Danyell Barahona [id number] Danyell Bowen 12/01/2022 DO NOT USE Danyell Brooklyn PHYSICAL Danyell Brooklyn Notes Date Note Type Note Provider Name a nd Address Organization Details Recorded Time 12/01/2022 text/html physical Daniele Zendejas NP [address] [place], [address], [place] - [facility] 12/01/2022 12:40:29 OBGyn Episode No OBEpisode recorded.
--- OUTSIDE RECORDS SUMMARY | 2024-12-24 16:21 | XMS_ITS | Encounter Summary ---
Author Organization [facility] Address [address] [place], [place] [address] Phone Care Team Providers Care Financial Aid Advisor Name Role Phone Provider, López JENKINS Primary Care Provider [phone] Reason for Visit * Reason Onset Date Comments Med Refill 10/07/2020 Encounter Details Date Type Department Care Team (Late st Contact Info) Description 10/07/2020 [facility]ill [facility] [address] [address] Fabi Shaffer NP Anxiety and depression Social [...] depression documented in this encounter Care Teams Financial Aid Advisor Relationship Specialty Start Date End Date Provider, MD López [address] [place] [address] PCP - General Pediatrics 11/12/22 08/31/24 documented as of this encounter
--- OUTSIDE RECORDS SUMMARY | 2024-12-24 16:21 | XMS_ITS ---
Author Organization [facility] Address [email or web address] [place] [address] Care Team Providers Care Demurrage Worker Name Role Phone MIKE DUNNE Unavailable [phone] REASON FOR VISIT Annual AIR VICE MARSHAL Physical Encounters Encounter Location Date Provider Diagnosis [facility] [email or web address] [place] [address] 08/23/2023 MIKE DUNNE Encounter for gynecological examination [...] Follow Up: 1 Year, Reason: Y early Manager Administrative Services Exam Provider Name:MIKE Morataya, 12/31/2024 09:00:00 AM, [email or web address], [address], [place], [address], Progress Notes * MARCY MCINTOSHOB:2000 (24 yo F)Acc No.[id number]:08/23/2023 PROGRESS NOTES Patient:?EULOGIO MCINTOSH Provider:?MIKE DUNNE MD :2000???Age:22 Y???Sex:Female D ate:08/23/2023 Address:[address] [place], [place] [id number] Subjective: * Chief Complaints: * ???1. Annual AIR VICE MARSHAL Physical. * HPI: ???Constitutional:? Eulogio is a 22yo G0 with LMP x/x/x who presents for her yearly obstetrics gyn annual exam. She has been in state of good health since her last exam. She has the following concerns: . She has received the eMinor Covid-19 vaccine. Relationship status: for years. She [...] x days/week by . . * ROS:?Annual Manager Administrative Services Exam ROS:?Bowel habit changes?denies.?Bladder symptoms?denies.?Vaginal discharge, unusual?denies.?Vaginal itch or odor?denies.?weight or appetite changes?denies.?Chest pains, SOB?denies.?depression?denies.?Breast:?Denies?Breast lump.?Denies?Nipple discharge.?Hematology:?Denies?Swollen glands.?Skin:?Patient denies?changing moles.?Psychiatric:?Denies?Anxiety.? * Medical History:?Attention a nd concentration deficit. * Manager Administrative Services History:?/ Para?0/0.?Sexual activity?currently sexually active, with men.?Last Pap Smear:?Pap not indicated due to age.?Mammogram:?not due per age.?LMP and menses?04/13/23.?History of STD's:?None.? Control:?Kyleena intrauterine device placed 09/10/21.?Menarche?13.?Gardasil:?series completed.? * OB History:?Total pregnancies?.? Objective: * Vitals:? * Examination: ???General Examination: ?GENERAL APPEARANCE:?in no acute distress,well developed, well nourished,lorry weigher present in room.?HEAD:?normocephalic, atraumatic.?NECK/THYROID:?neck supple, full range [...] * Follow Up:?1 Year (Reason: Y early Manager Administrative Services Exam) * Images: Billing Information: * Visit Code:? 23773 Preventive Care Est Pt. Age 18-39. * Procedure Codes:? * Electronic signature of MIKE DUNNE MD on 12/24/2024 at 04:21 PM EST Sign off status: Pending * Provider:?MIKE DUNNE MD Date:?2022 Generated for Nasreen bailey/Annita/eTransmitting on:?12/24/2024 04:21 PM EST History and Physical Notes * HPI (History of Present Illness) Category Sub-Category Detail Notes Category Not es Constitutional Eulogio is a 22yo G0 with LMP x/x/x who presents for her yearly obstetrics gyn annual exam. She has been in state of good health since her last exam. She has the following concerns: . She has received the eMinor Covid-19 vaccine. Relationship status: for years. She [...] General Examination GENERAL APPEARANCE: in no ac chitina distress, well developed, well nourished, lorry weigher present in room HEAD: normocephalic, atrau matic [...]
--- OUTSIDE RECORDS SUMMARY | 2024-12-24 16:22 | XMS_ITS ---
Author Organization [facility] Address [address] [facility] [address] [place] [address] Care Team Providers Care Fudge Candy Maker Name Role Phone DUNNEMIKE Unavailable [phone] REASON FOR VISIT Annual VALET PARKER Physical Encounters Encounter Location Date Provider Diagnosis [facility] [address] [place] [address] 12/04/2024 MIKE DUNNE Encounter for gynecological examination [...] Follow Up: 1 Year, Reason: Y early Shift Engineer Exam Provider Name:MIKE Ruff ROSHAN Morataya, 12/31/2024 09:00:00 AM, [address], [address], [place], [address], Progress Notes * MARCY MCINTOSHOB:2000 (24 yo F)Acc No.[id number]:12/04/2024 PROGRESS NOTES Patient:?EULOGIO MCINTOSH Provider:?MIKE DUNNE MD :2000???Age:23 Y???Sex:Female D ate:12/04/2024 Address:[address] [place], [place] [id number] Subjective: * Chief Complaints: * ???1. Annual VALET PARKER Physical. 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 ? She has been in state of good health since her last exam. She has the following concerns: none* ? She has received the valuklik Covid-19 vaccine. ? Relationship status: *partnered for [...] by doing Pilates at home. * ROS:?Annual Shift Engineer Exam ROS:?Bowel habit changes?denies.?Bladder symptoms?denies.?Vaginal discharge, unusual?denies.?Vaginal itch or odor?denies.?weight or appetite changes?denies.?Chest pains, SOB?denies.?depression?denies.?Breast:?Denies?Breast lump.?Denies?Nipple discharge.?Hematology:?Denies?Swollen glands.?Skin:?Patient denies?changing moles.?Psychiatric:?Denies?Anxiety.? * Medical History:? Objective: * Vitals:? * Examination: ???General Examination: ?GENERAL APPEARANCE:?in no acute distress,well developed, well nourished,dock boss present in room.?HEAD:?normocephalic, atraumatic.?NECK/THYROID:?neck supple, full range [...] * Follow Up:?1 Year (Reason: Y early Shift Engineer Exam) * Images: Billing Information: * Visit Code:? 98657 Preventive Care Est Pt. Age 18-39. * Procedure Codes:? 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 She has been in state of good health since her last exam. She has the following concerns: none* She has received the valuklik Covid-19 vaccine. Relationship status: *partnered for 4 [...] General Examination GENERAL APPEARANCE: in no ac venetie ira distress, well developed, well nourished, dock boss present in room HEAD: normocephalic, atrau matic [...]
--- OUTSIDE RECORDS SUMMARY | 2024-12-24 16:22 | XMS_ITS | Clinical Summary ---
Author Organization [facility] Address [address] [place] [address] Care Team Providers Care Internal Audit Consultant Name Role Phone Pcp, No Primary Care [...] age to complete this topic Care Teams Internal Audit Consultant Relationship Specialty Start Date End Date Pcp, No PCP - General General Medicine 06/23/24
--- OUTSIDE RECORDS SUMMARY | 2024-12-24 16:22 | XMS_ITS ---
Author Organization [facility] Address [address], [place] [phone] Care Team Providers Care Aeronautical Engineer Name Role Phone ISIAH SIMENTAL Primary Care Provider [phone] Kinsey Ortiz Unavailable [phone] REASON FOR VISIT School letter SOCIAL HISTORY Sex Assigned At : Social History Observation Description Sex Assigned At Female Encounters Encounter Location Date Provider Diagnosis [facility] [address], [place] [phone] 06/09/2024 Kinsey Ortiz PLAN OF TREATMENT No Information Progress Notes * MARCY MCINTOSHOB:2000 (23 yo F)Acc No.[id number]:06/09/2024 Patient:??EULOGIO MCINTOSH :2000?Age:23 Y?Sex:Fe male Phone: Address:[address] [place] [address] * true * Date:??
--- OUTSIDE RECORDS SUMMARY | 2024-12-24 16:22 | XMS_ITS ---
Author Organization [facility] Address [address] [place] [id number] Care Team Providers Care Addiction Counselor Name Role Phone ISIAH SIMENTAL Primary Care Provider Kinsey Ortiz Unavailable [phone] REASON FOR VISIT Refills MEDICATIONS Medication SIG (Take, Route, Frequency, Duration) Notes Start Date End Date Status Amphetamine-Dextroamphet ER 30 MG 1 capsule in the morning Orally Once a day for 28 days 06/05/2024 Active SOCIAL HISTORY Sex Assigned At : Social History Observation Description Sex Assigned At Female Encounters Encounter Location Date Provider Diagnosis [facility], [address] [phone] 06/05/2024 Kinsey Ortiz ADHD (attention deficit hyperactivity [...] Notes * MARCY MCINTOSHOB:2000 (23 yo F)Acc No.[id number]:06/05/2024 Patient:??DAYNASHIRLEYEN :2000?Age:23 Y?Sex:Fe male Phone: Address:[address] [place] [address] * Refills?? Refill Amphetamine-Dextroamphet ER Capsule Extended Release 24 Hour, 30 MG, Orally, 28 Capsule, 1 capsule in the morning, Once a day, 28 days, Refills=0 * true * Date:??
--- OUTSIDE RECORDS SUMMARY | 2024-12-24 16:22 | XMS_ITS | Clinical Summary ---
Author Organization [facility] Address [address] [place] [address] Phone Care Team Providers Care Election Watcher Name Role Phone Unavailable Primary Care Provider [...] of symptoms that would require speaking to new car salesperson provider or going to ER. Attention deficit [...] bring about headaches again. 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 Assessment & Plan (02/01/2021 11:59 AM EDT): Did not respond great to the Apri. [place] more anxious on it, periods still painful. She is interested in getting an IUD but would like to stay on the pill until then. Numbers provided for HEADING MACHINE OPERATOR. 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 Assessment & Plan (12/26/2021 7:06 PM EST): [...] get her in. I also recommended trying [facility] or [facility]. She has been on a few SSRIs [...] in the sertraline, may reach out to [facility] first, or she will talk [...] effective. I provided mom with number for [facility] and discussed website psychologytoday to find a [...] Completed 07/27/2020, 06/15/2020 Procedures * Due to [place] state law, this organization might not be sharing sensitive test results. Procedure Name Priority Date/Time Associated Diagnosis Comments CHLAMYDIA AND GONORRHEA, AMPLIFIED Routine 12/25/2021 2:16 PM EST Abdominal pain, unspecified abdominal location from Last 3 Months or Most Recently Relevant to Health Maintenance Results * Due to [place] state law, this organization might not be sharing sensitive test results. * Chlamydia and Gonorrhea, Amplified (12/25/2021 2:16 PM EST) Chlamydia Trachomatis, DNA Probe NEGATIVE (NEG) [facility] Comment: No Chlamydia Trachomatis RNA detected in this patient's sample ? (REFERENCE RANGE/NORMAL VALUE: NOT DETECTED) ? Note: This test uses car pincher- mediated amplification method to detect rRNA from C. Trachomatis URINE GC AMP PROBE NEGATIVE (NEG) [facility] Comment: No Neisseria Gonorrhoeae RNA detected in this patient's sample ? (REFERENCE RANGE/NORMAL VALUE: NOT DETECTED) ? NOTE: This test uses car pincher-mediated amplification method to detect rRNA from N.Gonorrhoeae. [...] without risk of sexual abuse. Consult the [facility] if needed. Contact phone number . Therapeutic failure or success cannot be determined with the Aptima Combo2 assay since nucleic acid may persist following appropriate antimicrobial therapy. The Centers for Disease Control and Prevention (CDC) recommends confirmatory retesting using culture or a different nucleic acid amplification test when positive results occur, if indicated. Testing performed or reported by [facility], a Service of [facility], [facility] [place] [address] Corona Vogt MD, Formula Checker [facility]# [id number] Urine (Urine) 12/25/2021 2:1 6 PM EST 12/25/2021 5:48 PM EST Fabi Shaffer HOT PLATE PRESS OPERATOR LAB MICROBIOLOGY - GENER AL ORDERABLES Final Result [facility] from Last 3 Months or Most Recently Relevant to Health Maintenance Insurance COMMERCIAL
--- OUTSIDE RECORDS SUMMARY | 2024-12-24 16:22 | XMS_ITS ---
Author Organization [facility], [facility] Address [address], [place] [id number] Care Team Providers Care School Psychological Examiner Name Role Phone ISIAH SIMENTAL Primary Care Provider Kinsey Ortiz [phone] REASON FOR VISIT f/u ADHD SOCIAL HISTORY Sex Assigned At : Social History Observation Description Sex Assigned At Female Encounters Encounter Location Date Provider Diagnosis [facility], [facility] [address], [place] [phone] 06/09/2024 Kinsey Ortiz PLAN OF TREATMENT No Information Progress Notes * MARCY MCINTOSHOB:2000 (24 yo F)Acc No.[id number]:06/09/2024 Progress Notes Patient:??EULOGIO MCINTOSH Provider:??Kinsey Ortiz DNP :2000?Age:23 Y?Sex:Fe male Date:06/09/2024 Phone: Address:[address] [place], [place] [phone] Pcp:ISIAH SIMENTAL Subjective: * Chief Complaints: * ?1. f/u ADHD. * Medical History:?? Objective: Assessment: Plan: * Treatment: * Billing Information: * Visit Code:?? * Procedure Codes:?? * Sign off status: Pending * Provider:??Kinsey Ortiz DNP Date:??04/2024
--- OUTSIDE RECORDS SUMMARY | 2024-12-24 16:22 | XMS_ITS | Patient Health Record ---
Author Organization [facility] Address [address] [place] [phone] Care Team Providers Care Clinical Cytopathologist Name Role Phone KAMILLEISIAH Primary Care Provider Kinsey Ortiz Unavailable [phone] ALLERGIES No Known Allergies RESULTS Component Value Reference Range Notes CHLAMYDIA/N. GONORRHOEAE RNA , TMA, UROGENITAL ([id number]) Reviewed date:02/25/2024 08:27:29 AM Interpretation: Performing Lab:NL[facility], [employer] [facility] [id number] Terrie Smith Notes/Report: SPECIMEN DROPPED OFF FASTING:UNKNOWN FASTING: UNKNOWN CHLAMYDIA TRACHOMATIS RNA, TMA, UROGENITAL NOT DETECTED NOT DETECTED NEISSERIA GONORRHOEAE RNA, TMA, UROGENITAL NOT DETECTED NOT DETECTED COMMENT The analytical performance characteristics of this assay, when used to test SurePath(TM) specimens have been determined by [employer]. The modifications have not been cleared or approved by the FDA. This assay has been validated pursuant to the CLIA regulations and is used for clinical purposes. For additional information, please refer to https://education.[employer].com/faq/IES513 (This link is being provided for information/ [...] Tobacco use: nonsmoker Section Notes: Lives in [place], [place] with boyfriend, mom & brother & brother's girlfriend & MGMother Lives in [place], [place] with boyfriend, mom & brother & brother's girlfriend & MGMother Lives in [place], [place] with boyfriend, mom & brother & brother's girlfriend & MGMother Lives in [place] with boyfriend, mom & brother & brother's girlfriend & MGMother Lives in [place] with boyfriend, mom & brother & brother's girlfriend & MGMother Lives in [place] with boyfriend, mom & brother & brother's girlfriend & MGMother Lives in [place] with boyfriend, mom & brother & brother's girlfriend & MGMother Lives in [place] with boyfriend, mom & brother & brother's girlfriend & MGMother Lives in [place], [place] with boyfriend, mom & brother & brother's girlfriend & MGMother Lives in [place] with boyfriend, mom & brother & brother's girlfriend & MGMother Lives in [place], [place] with boyfriend, mom & brother & brother's girlfriend & MGMother PROBLEMS Problem Type ICD Code Onset Dates Problem Status W/U Status Risk SNOMED Code Notes Problem Mixed hyperlipidemia (E78.2) Active confirmed 094809723 Problem ADHD (attention deficit hyperactivity disorder), combined type (F90.2) Active confirmed 17980155 Problem Moderate depressive disorder (F32.A) Active confirmed 704406946 Problem Serum calcium elevated (E83.52) Active confirmed 61786181 Problem Situational anxiety (F41.8) Active confirmed 12576038 Problem 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) Active confirmed 874398137 VITAL SIGNS Heart Rate 90 /min 02/18/2024 Height-cm 162.56 cm 02/18/2024 Oximetry 98 % 02/18/2024 Blood pressure diastolic 62 mm Hg 02/18/2024 Weight-kg 73.48 kg 02/18/2024 Height 64 in 02/18/2024 Blood pressure systolic 98 mm Hg 02/18/2024 Weight 162.0 lbs 02/18/2024 BMI 27.8 kg/m2 02/18/2024 Encounters Encounter Location Date Provider Diagnosis [address] [id number] 06/09/2024 Kinsey Ortiz [address] [id number] 02/18/2024 Kinsey Ortiz Encounter for genera l adult medical examination without abnormal findings Z00.00 ; Encounter for screening for depression Z13.31 ; Encounter for screening for other disorder Z13.89 ; ADHD (attention deficit hyperactivity disorder), combined type F90.2 ; Encounter for screening for infections with a predominantly sexual mode of transmission Z11.3 and Situational anxiety F41.[address] [id number] 01/09/2024 Kinsey Ortiz ADHD (attention deficit hyperactivity disorder), combined type F90.[address] [id number] 02/10/2024 Kinsey Ortiz ADHD (attention deficit hyperactivity disorder), combined type F90.[address] [id number] 03/17/2024 Kinsey Ortiz Situational anxiety F41.[address] [id number] 04/21/2024 Kinsey Ortiz ADHD (attention deficit hyperactivity disorder), combined type F90.2 and Situational anxiety F41.[address] [id number] 06/05/2024 Kinsey Ortiz ADHD (attention deficit hyperactivity disorder), combined type F90.[address] [id number] 06/09/2024 Kinsey Ortiz [facility] [address], [place] [id number] 01/10/2024 Kinsey Ortiz [facility] [address], [place] [id number] 01/13/2024 Kinsey Ortiz [facility] [address], [place] [id number] 02/28/2024 Kinsey Ortiz Situational anxiety F41.8 [facility] [address], [place] [id number] 03/12/2024 Kinsey Ortiz ADHD (attention deficit hyperactivity [...] or to get rid of a hangover (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 N Total Score: 0 Scoring: Item responses [...] a common and recognized concern in the [facility]. THIS OFFICE WILL NOT TOLERATE MISUSE. EVEN [...] 10/17/2023 DRUG MONITOR, BASE PANEL, W/CONF, URINE (56126) 10/17/2023 CARDIO IQ(R) LIPID PANEL (71889) 023 COMPREHENSIVE METABOLIC PANEL (84093) CARDIO IQ(R) LIPOPROTEIN (a) (43218) CBC (INCLUDES DIFF/PLT) (6399) URINALYSIS, COMPLETE W/REFLEX TO CULTURE (3020) 10/17/2023 CARDIO IQ(R) HS CRP (32581) 10/17/2023 CARDIO IQ(R) APOLIPOPROTEIN A1 (47510) 1 12/18/2022 CARDIO IQ(R) APOLIPOPROTEIN B (26252) CARDIO IQ(R) HOMOCYSTEINE (86547) 2022 CARDIO IQ(R) INSULIN (22478) 10/17/2023 CARDIO IQ(R) VITAMIN D, 25 HYDROXY (9173 5) 10/17/2023 DRUG MONITOR,AMPHETAMINE, W/CONF, URINE (22911) 10/17/2023 HEPATITIS B IMMUNITY PANEL (7105) 2023 QUANTIFERON(R)-TB GOLD PLUS, 1 TUBE (774 55) 02/26/2024 Insurance Providers Payer Name Payer Address Payer Phone Subscriber Number Group Number Insured Name Patient Relationship to Insured Coverage Start Date Coverage End Date [facility] [address] [place] [phone] [id number] EULOGIO MCINTOSH Self - patient is the insured MEDICAL (GENERAL) HISTORY Medical History History ICD Code Anxiety Depression Fx - left foot Irritable Bowel Syndrome Migraines Pneumonia Surgical History Surgery Date(Month/Year) Colonoscopy
--- OUTSIDE RECORDS SUMMARY | 2024-12-24 16:22 | XMS_ITS | Encounter Summary ---
Author Organization [facility] Address [address] [place] [address] Phone Care Team Providers Care Physical Science Professor Name Role Phone Provider, López JENKISN Primary Care Provider [phone] Encounter Details Date Type Department Care Team (Late st Contact Info) Description 03/23/2018 Conversion [facility]counter [facility] [address] [address] Violetta Sparks MD [address] [place] [address] Social History Tobacco Use Types Packs/Day Years [...] on filedocumented in this encounter Care Teams Physical Science Professor Relationship Specialty Start Date End Date Provider, MD López [address] [place] [address] PCP - General Pediatrics 11/12/22 08/31/24 documented as of this encounter
--- OUTSIDE RECORDS SUMMARY | 2024-12-24 16:23 | XMS_ITS | Patient Health Record ---
Author Organization [facility] Address [address] [facility] [address] [place] [address] Care Team Providers Care Kick Press Operator Name Role Phone MIKE DUNNE Unavailable [phone] Allergies No Known Allergies Reason For Referral [...] Status Risk Notes Problem Abnormal uterine bleeding (89657835777680) Abnormal uterine and vaginal bleeding, unspecified (N93.9) Active confirmed Problem Attention and concentration deficit (R41.840) Active confirmed Problem High risk heterosexual behavior (676900090761291) High risk heterosexual behavior (Z72.51) Active confirmed Problem Intrauterine contraceptive device in situ (finding) (352042246) Presence of (intrauterine) contraceptive device (Z97.5) Active confirmed Problem Body mass index 35.00 to 39.99 (345646074305151) Body mass index [BMI] 38.0-38.9, adult (Z68.38) Active confirmed Plan Of Treatment Pending Test Test Name Order Date Test, Urine 09/20/2021 CHLAMYDIA GC AMP PROBE 01/12/2022 ULTRASOUND: PELVIC W/TRANSVAGINAL 2021 Next Appt Details Provider Name:MIKE Morataya, 12/31/2024 09:00:00 AM, [email or web address], [address], [place], [address], Insurance Providers Payer Name Payer Address Payer Phone Subscriber Number Group Number Insured Name Patient Relationship to Insured Coverage Start Date Coverage End Date [employer] [address] [place] [address] [phone] [id number] DANNIE MCINTOSH Child - Insured has Financial Responsibility Medical (General) History Medical History History ICD Code Attention and concentration deficit R41. 840 Anxiety disorder, unspecified F41.9 Major depressive disorder, recurrent sev ere without psychotic features F33.2 Surgical History Surgery Date(Month/Year)
== END 2024-12-24 16:26 | disposition home or self-care (01) ==
PROVIDERS: PCP Nurse Practitioner Family; Visit Provider Nurse Practitioner Family
DX: F41.9 Anxiety disorder, unspecified (principal); F32.A Depression, unspecified; F90.9 Attention-deficit hyperactivity disorder, unspecified type; R63.4 Abnormal weight loss

== ENCOUNTER → 2024-12-24 15:18 | Outpatient (BNVA) | payer BC, SELFPAY | PROVIDERS: PCP Nurse Practitioner Family; Visit Provider Nurse Practitioner Family | DX: F41.9 Anxiety disorder, unspecified (principal); F32.A Depression, unspecified; F90.9 Attention-deficit hyperactivity disorder, unspecified type; R63.4 Abnormal weight loss; Z68.22 Body mass index [BMI] 22.0-22.9, adult; Z79.899 Other long term (current) drug therapy | CPT/HCPCS: 96127 ==

== ENCOUNTER 2025-02-02 10:47 | Outpatient (AMB) | payer BC, SELFPAY ==
--- NOTE | 2025-02-02 10:56 | A.OFFPC_ITS ---
Vital Signs 02/02/25 11:05 Height 5 ft 4 in Weight 126 lb 4 oz BMI 21.7 BP 117/66 Blood Pressure Location Rt brachial Position Sitting Respiration 16 Pulse 78 Pulse Source Pulse Oximeter Temp 97.7 F Temp Source Oral Pulse Oximetry (%) 100 Oxygen Delivery Method Room Air Intake Visit Reasons: 1 mos wt mgmt Intake Note: patient here for 1month wt management. Cellar Hand Required: No Is last menstrual period known: Yes Last menstrual period: 02/18/25 Post menopausal: No Patient : No Allergies No Known Allergies Allergy (Verified 02/02/25 11:14) Medication List - Last Reconciled 02/02/25 by Emre Decker CNP alprazolam 0.5 mg PO DAILY PRN dextroamphetamine-amphetamine 20 mg ER 20 mg PO QAM 30 days sertraline 50 mg PO DAILY Tobacco use date assessed: 02/02/25 Dental Screening Dental Screen Date: 02/02/25 Did you have a dental visit in the last 12 months?: Yes Did you have a dental problem in the last 6 months where you did not have access to dental care?: No Was dental information given to patient?: Patient has dentist HPI HPI Comments History of Present Illness Details 24-year-old female presents for weight l oss follow-up. She has had loss of appetite and weight loss over the course of a year. She lost 21 lb in the past 7 months. She lost 3 lb since her last visit. No night sweats, heat intolerance, or sleep disturbance. She has history ADHD and on dexamethasone-amphetamine which was decreased from 30 mg daily to 20 mg daily at her last visit on 12/24/2024. No acute symptoms at this time. [facility] Medical History (Updated 12/24/24 @ 16:30 by Emre Decker CNP) ADHD Depression Anxiety Postural orthostatic tachycardia syndrome [POTS] IBS (irritable bowel syndrome) Surgical History (Updated 07/31/24 @ 11:23 by Jennifer Wetzel MA) History of surgical removal of ganglion cyst Family History (Updated 07/31/24 @ 11:26 by Jennifer Wetzel MA) Mother FH: mental illness Paternal Grandmother Asthma Father High blood pressure High cholesterol Cardiovascular disease Maternal Grandmother High blood pressure Diabetes Cardiovascular disease Maternal Grandfather Clotting disorder Social History Housing: House Patient Tobacco Use Status: Never used Tobacco e-Cigarette/Vaping Use: Never Used Second Hand Smoke Exposure: No service: No Current occupational status: student Current occupational exposures/hazards: No Cognitive needs: No Hearing needs: No Vision needs: No Female Reproductive History Menstrual Date of last menstrual period: 02/18/25 Questionnaire Thrive Questionnaire Date Thrive assessed: 12/24/24 I am a: Patient What is your living situation today?: I have a steady place to live Within the past 12 months, did the food you bought not last and you didn't have the money to get more?: Never true Within the past 12 months, did you worry whether your food would run out before you got money to buy more?: Never true Do you have trouble paying for medicines?: No Do you have trouble getting transportation to medical appointments?: No Do you have trouble paying your heating and electricity bill?: No Do you have trouble taking care of your child, family member or friend?: No Do you have trouble with day-to-day activities such as bathing, preparing meals, shopping, managing finances, etc.?: No Are you currently unemployed and looking for a job?: No Are you interested in more education?: No Please select the resources that you would like help with: None Currently or been in a relationship where the following occur: No concerns reported THRIVE Score: 0 PAUL-7 AMB Questionnaire PAUL-7 Date PAUL - 7 assessed: 12/24/24 Source: Developed by Drs. Jack Vásquez, Michelle Ventura, Clayton George and colleagues, with an educational eleonora from [employer]. Review of Systems Const Details: Const Denies chills, Denies fatigue, Denies fever(s), Denies headache(s) and Denies weakness ENT Denies dizziness and Denies headache(s) Card Denies chest pain, Denies lightheadedness, Denies dyspnea and Denies other (Palpitations) Resp Denies cough, Denies dyspnea, Denies wheezing and Denies other ( shortness of breath) GI Denies abdominal pain, Denies melena, Denies hematochezia, Denies change in bowel habits, Denies dyspepsia and Denies nausea Denies hematuria and Denies dysuria Musc Denies abnormal gait, Denies myalgias, Denies arthralgias, Denies numbness and Denies tingling Skin/Breast Denies rash, Denies unusual bruising and Denies wounds Neuro Denies abnormal gait, Denies dizziness, Denies headache(s), Denies memory loss, Denies numbness, Denies Sensory deficit (Neuro), Denies tingling and Denies weakness Psych Denies anxiety, Denies depression, Denies memory loss Endo Denies cold intolerance, Denies fatigue, Denies heat intolerance, Denies polydipsia and Denies polyuria Aller/Immun Denies wheezing Physical exam (Primary Care) Tobacco/Smoking Status: Tobacco use Status Tobacco use date assessed 12/24/24 02/02/25 10:57 Patient Tobacco Use Status Never used Tobacco 02/02/25 10:57 e-Cigarette/Vaping Use Never Used 02/02/25 10:57 Thrive Assessment: Date of Thrive Assessment Date Thrive assessed 12/24/24 02/02/25 10:57 Currently or been in a relationship where the following occur: No concerns reported Const Other: General: no acute distress and well developed Nutritional Appearance: well nourished Orientation/consciousness: patient oriented x3 HENMT Head: Yes normocephalic and Yes atraumatic Eyes General: appearance normal, both eyes and all related structures Pupils: Equal, round and reactive pupils present EOM: EOMs intact bilaterally Resp Effort & Inspection: normal respiratory effort Auscultation: clear to auscultation bilaterally Cardio Rate: regular rate Rhythm: regular rhythm Heart sounds: S1 normal heart sound present, S2 normal heart sound present, no gallops, no murmurs and no rubs GI Palpation (GI): No Abdominal aortic bruit present, Soft to palpation, nontender, No hepatosplenomegaly present and No Rebound tenderness present Auscultation: normal bowel sounds General: Yes no CVA tenderness Back/Spine/Pelvis Back: no CVA tenderness Cervical Spine: cervical ROM normal and No Cervical spine tenderness Thoracic/Lumbar Spine: thoraco-lumbar ROM normal, No pain with thoraco-lumbar ROM, No thoracic spinal tenderness and No lumbar spinal tenderness Extrem General: Yes normal to inspection, No edema and No calf tenderness Skin General: warm and dry. Normal skin color. Normal skin turgor Neuro General: patient oriented x3, gait normal and no focal neuro deficit Cranial nerves: Yes Equal, round and reactive pupils present Cognition (Neuro): normal cognition Gait exam (Neuro): Normal gait present Sensory Exam: No Sensory deficit (Neuro) Psych Appearance: grossly normal Affect: normal affect Attitude: cooperative Thought process: Normal thought process present Coding Level of Care Code Est Pt Level 3 (33239) Diagnoses Weight loss, unintentional R63.4 Assessment & Plan Assessment & Plan (1) Weight loss, unintentional: Code(s): R63.4 - Abnormal weight loss Category: Medical Plan: She has had loss of appetite and weight loss over the course of a year. She lost 21 lb in the past 7 months. She lost 3 lb since her last visit. No night sweats, heat intolerance, or sleep disturbance. She is willing to switch Adderall to Vyvanse due to mild gradual appetite suppression with Vyvanse. Vyvanse 20 mg daily ordered; advised to take as prescribed. Instructed on the risks, benefits, and potential adverse reactions of the medication. Healthy diet, including protein encouraged. May consume protein shakes. Follow-up in 1 month or sooner with worsening or new symptoms. Verbalized understanding and agreed with treatment plan. Medications: New lisdexamfetamine (Vyvanse) Partial Fill upon patient request. 20 mg PO QAM 28 days 28 caps 0RF Discontinued dextroamphetamine-amphetamine 20 mg ER Partial Fill upon patient request. Discontinued Reason: Doctor's Order 20 mg PO QAM 30 days 28 caps 0RF
[2025-02-02 11:05] VITALS: BP 117/66; PULSE 78; RESP 16; TEMP 36.5; O2SAT 100; BMI 21.7
--- OUTSIDE RECORDS SUMMARY | 2025-02-02 12:56 | XMS_ITS | Patient Health Record ---
Author Organization [employer] Address [address] [place] [id number] Care Team Providers Care Data Processing Manager Name Role Phone KAMILLEISIAH Primary Care Provider [phone] Kinsey Ortiz Unavailable [phone] ALLERGIES No Known Allergies RESULTS Component Value Reference Range Notes CHLAMYDIA/N. GONORRHOEAE RNA , TMA, UROGENITAL ([id number]) Reviewed date:02/25/2024 08:27:29 AM Interpretation: Performing Lab:NL2, [employer] [facility] [address] Terrie Smith Notes/Report: SPECIMEN DROPPED OFF FASTING:UNKNOWN FASTING: UNKNOWN CHLAMYDIA TRACHOMATIS RNA, TMA, UROGENITAL NOT DETECTED NOT DETECTED NEISSERIA GONORRHOEAE RNA, TMA, UROGENITAL NOT DETECTED NOT DETECTED COMMENT The analytical performance characteristics of this assay, when used to test SurePath(TM) specimens have been determined by [employer]. The modifications have not been cleared or approved by the FDA. This assay has been validated pursuant to the CLIA regulations and is used for clinical purposes. For additional information, please refer to https://education.Tool[employer].com/faq/GMS911 (This link is being provided for information/ [...] Tobacco use: nonsmoker Section Notes: Lives in [place], [place] with boyfriend, mom & brother & brother's girlfriend & MGMother Lives in [place], [place] with boyfriend, mom & brother & brother's girlfriend & MGMother Lives in [place], [place] with boyfriend, mom & brother & brother's girlfriend & MGMother Lives in [place] with boyfriend, mom & brother & brother's girlfriend & MGMother Lives in [place] with boyfriend, mom & brother & brother's girlfriend & MGMother Lives in [place] with boyfriend, mom & brother & brother's girlfriend & MGMother Lives in [place] with boyfriend, mom & brother & brother's girlfriend & MGMother Lives in [place] with boyfriend, mom & brother & brother's girlfriend & MGMother Lives in [place], [place] with boyfriend, mom & brother & brother's girlfriend & MGMother Lives in [place] with boyfriend, mom & brother & brother's girlfriend & MGMother Lives in [place] with boyfriend, mom & brother & brother's girlfriend & MGMother PROBLEMS Problem Type ICD Code Onset Dates Problem Status W/U Status Risk SNOMED Code Notes Problem Mixed hyperlipidemia (E78.2) Active confirmed 509909760 Problem ADHD (attention deficit hyperactivity disorder), combined type (F90.2) Active confirmed 55407355 Problem Moderate depressive disorder (F32.A) Active confirmed 364278922 Problem Serum calcium elevated (E83.52) Active confirmed 49358808 Problem Situational anxiety (F41.8) Active confirmed 71776364 Problem 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) Active confirmed 094334048 VITAL SIGNS Heart Rate 90 /min 02/18/2024 Height-cm 162.56 cm 02/18/2024 Oximetry 98 % 02/18/2024 Blood pressure diastolic 62 mm Hg 02/18/2024 Weight-kg 73.48 kg 02/18/2024 Height 64 in 02/18/2024 Blood pressure systolic 98 mm Hg 02/18/2024 Weight 162.0 lbs 02/18/2024 BMI 27.8 kg/m2 02/18/2024 Encounters Encounter Location Date Provider Diagnosis [address] [id number] 06/09/2024 Kinsey Ortiz [address] [id number] 02/18/2024 Kinsey Ortiz Encounter for genera l adult medical examination without abnormal findings Z00.00 ; Encounter for screening for depression Z13.31 ; Encounter for screening for other disorder Z13.89 ; ADHD (attention deficit hyperactivity disorder), combined type F90.2 ; Encounter for screening for infections with a predominantly sexual mode of transmission Z11.3 and Situational anxiety F41.[address] [id number] 02/10/2024 Kinsey Ortiz ADHD (attention deficit hyperactivity disorder), combined type F90.[address] [id number] 03/17/2024 Kinsey Ortiz Situational anxiety F41.[address] [id number] 04/21/2024 Kinsey Ortiz ADHD (attention deficit hyperactivity disorder), combined type F90.2 and Situational anxiety F41.[address] [id number] 06/05/2024 Kinsey Ortiz ADHD (attention deficit hyperactivity disorder), combined type F90.[address] [place] [id number] 06/09/2024 Kinsey Ortiz [address] [id number] 02/28/2024 Kinsey Ortiz Situational anxiety F41.8 [facility] [address] [id number] 03/12/2024 Kinsey Ortiz ADHD (attention deficit hyperactivity disorder), combined type F90.2 ASSESSMENTS Encounter Date Diagnosis Assessment Notes Treatment Notes Treatment Clinical Notes Section Notes 02/10/2024 ADHD (attention deficit hyperactivity disorder), combined [...] or to get rid of a 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 N Total Score: 0 Scoring: Item responses [...] a common and recognized concern in the [facility]. THIS OFFICE WILL NOT TOLERATE MISUSE. EVEN [...] Date THYROID PEROXIDASE AND THYROGLOBULIN ANT IBODIES (5560) 10/17/2023 THYROID PANEL WITH TSH (0744) 10/17/2023 DRUG MONITOR, BASE PANEL, W/CONF, URINE (29603) 10/17/2023 CARDIO IQ(R) LIPID PANEL (38411) 023 COMPREHENSIVE METABOLIC PANEL (52372) CARDIO IQ(R) LIPOPROTEIN (a) (82599) CBC (INCLUDES DIFF/PLT) (6399) URINALYSIS, COMPLETE W/REFLEX TO CULTURE (1610) 10/17/2023 CARDIO IQ(R) HS CRP (55907) 10/17/2023 CARDIO IQ(R) APOLIPOPROTEIN A1 (43560) 1 12/18/2022 CARDIO IQ(R) APOLIPOPROTEIN B (36160) CARDIO IQ(R) HOMOCYSTEINE (46263) 2022 CARDIO IQ(R) INSULIN (17783) 10/17/2023 CARDIO IQ(R) VITAMIN D, 25 HYDROXY (9173 5) 10/17/2023 DRUG MONITOR,AMPHETAMINE, W/CONF, URINE (28889) 10/17/2023 HEPATITIS B IMMUNITY PANEL (6255) 2023 QUANTIFERON(R)-TB GOLD PLUS, 1 TUBE (622 18) 02/26/2024 Insurance Providers Payer Name Payer Address Payer Phone Subscriber Number Group Number Insured Name Patient Relationship to Insured Coverage Start Date Coverage End Date [facility] [address] [place] [phone] [id number] EULOGIO MCINTOSH Self - patient is the insured MEDICAL (GENERAL) HISTORY Medical History History ICD Code Anxiety Depression Fx - left foot Irritable Bowel Syndrome Migraines Pneumonia Surgical History Surgery Date(Month/Year) Colonoscopy
--- OUTSIDE RECORDS SUMMARY | 2025-02-02 12:56 | XMS_ITS ---
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 Encounters Encounter Location Date Provider Diagnosis [facility] [address] [facility] [address] [place] [address] 12/04/2024 MIKE DUNNE Encounter for gynecological examination [...] Follow Up: 1 Year, Reason: Y early Associate Director Of Biostatistics Exam Provider Name:MIKE Ruff ROSHAN [place], 02/04/2025 02:00:00 PM, [address], [address], [place], [address], Progress Notes * MARCY MCINTOSHOB:2000 (24 yo F)Acc No.[id number]:12/04/2024 PROGRESS NOTES Patient:?EULOGIO MCINTOSH Provider:?MIKE DUNNE MD :2000???Age:23 Y???Sex:Female D ate:12/04/2024 Address:[address] [place], [place] [id number] Subjective: * Chief Complaints: * ???1. 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 ? She has been in state of good health since her last exam. She has the following concerns: none* ? She has received the [employer] Covid-19 vaccine. ? Relationship status: *partnered for [...] by doing Pilates at home. * ROS:?Annual Associate Director Of Biostatistics Exam ROS:?Bowel habit changes?denies.?Bladder symptoms?denies.?Vaginal discharge, unusual?denies.?Vaginal itch or odor?denies.?weight or appetite changes?denies.?Chest pains, SOB?denies.?depression?denies.?Breast:?Denies?Breast lump.?Denies?Nipple discharge.?Hematology:?Denies?Swollen glands.?Skin:?Patient denies?changing moles.?Psychiatric:?Denies?Anxiety.? * Medical History:? Objective: * Vitals:? * Examination: ???General Examination: ?GENERAL APPEARANCE:?in no acute distress,well developed, well nourished,sheet rock layer present in room.?HEAD:?normocephalic, atraumatic.?NECK/THYROID:?neck supple, full range [...] * Follow Up:?1 Year (Reason: Y early Associate Director Of Biostatistics Exam) * Images: Billing Information: * Visit Code:? 12865 Preventive Care Est Pt. Age 18-39. * Procedure Codes:? 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 She has been in state of good health since her last exam. She has the following concerns: none* She has received the [employer] Covid-19 vaccine. Relationship status: *partnered for 4 [...] General Examination GENERAL APPEARANCE: in no ac [place] distress, well developed, well nourished, sheet rock layer present in room HEAD: normocephalic, atrau matic [...]
--- OUTSIDE RECORDS SUMMARY | 2025-02-02 12:56 | XMS_ITS ---
Author Organization [facility], [facility] Address [address] [place], [place] [phone] Care Team Providers Care Manager Reporting Name Role Phone ISIAH SIMENTAL Primary Care Provider Kinsey Ortiz Unavailable [phone] REASON FOR VISIT School letter SOCIAL HISTORY Sex Assigned At : Social History Observation Description Sex Assigned At Female Encounters Encounter Location Date Provider Diagnosis [facility], [facility] [address] [place], [place] [phone] 06/09/2024 Kinsey Ortiz PLAN OF TREATMENT No Information Progress Notes * MARCY MCINTOSHOB:2000 (23 yo F)Acc No.[id number]:06/09/2024 Patient:??EULOGIO MCINTOSH :2000?Age:23 Y?Sex:Fe male Phone: Address:[address] [place] [address] * true * Date:??
--- OUTSIDE RECORDS SUMMARY | 2025-02-02 12:56 | XMS_ITS | Encounter Summary ---
Author Organization [facility] Address [address] [place], [place] [phone] Phone Care Team Providers Care Javascript Ui Developer Name Role Phone Provider, López JENKINS Primary Care Provider [phone] Reason for Visit * Reason Onset Date Comments Med Refill 10/07/2020 Encounter Details Date Type Department Care Team (Late st Contact Info) Description 10/07/2020 [facility]ill [facility] [address] [address] Fabi Shaffer NP Anxiety and depression Social [...] depression documented in this encounter Care Teams Javascript Ui Developer Relationship Specialty Start Date End Date Provider, MD López [address] [place] [address] PCP - General Pediatrics 11/12/22 08/31/24 documented as of this encounter
--- OUTSIDE RECORDS SUMMARY | 2025-02-02 12:56 | XMS_ITS | Data Portability ---
Author Organization [facility] [address] Address [address] [place] [address] Assessment No assessment recorded. Plan of Treatment [...] By Organization Details Last Modified Time 12/01/2022 [id number] This physical does not replace the annual [...] SNOMED-CT Code Diagnosis ICD10 Code Diagnosis Note [id number] [address] [facility] [address] [place] [address] 02/18/2020 16:20:13 02/18/2020 16:48:25 [id number] [address] [place] [address] 09/21/2021 13:17:47 09/21/2021 15:24:59 [id number] [place]jas [place] [address] [facility] [address] [place] [address] 12/01/2022 11:58:27 12/01/2022 12:42:51 History and physical examination, pre-employment [id number] Z02.1 Health Concerns Section Related Observation LastModified by Organization Detai ls LastModified Time None Recorded Concern Status LastModified by Organization Details LastModified Time None Recorded Advance Directives Directive None Recorded Payers Encounter Date Sequence Insurance Name Policy Number Policy Neil Covered Member ID Neil Member ID Guarantor Name 02/18/2020 1 [facility] [id number] Danyell Barahona [id number] Danyell Brooklyn 12/01/2022 DO NOT USE Danyell Brooklyn PHYSICAL PHYSICAL Danyell Brooklyn Notes Date Note Type Note Provider Name a nd Address Organization Details Recorded Time 12/01/2022 text/html physical Danieledorota Zendejas NP [address] [place], [address], [place] - [facility] 12/01/2022 12:40:29 OBGyn Episode No OBEpisode recorded.
--- OUTSIDE RECORDS SUMMARY | 2025-02-02 12:56 | XMS_ITS ---
Author Organization [facility], [facility] Address [address] [place] [phone] Care Team Providers Care Jet Aircraft Servicer Name Role Phone ISIAH SIMENTAL Primary Care Provider Kinsey Ortiz Unavailable [phone] REASON FOR VISIT Refills MEDICATIONS Medication SIG (Take, Route, Frequency, Duration) Notes Start Date End Date Status Amphetamine-Dextroamphet ER 30 MG 1 capsule in the morning Orally Once a day for 28 days 06/05/2024 Active SOCIAL HISTORY Sex Assigned At : Social History Observation Description Sex Assigned At Female Encounters Encounter Location Date Provider Diagnosis [facility], [address] [phone] 06/05/2024 Kinsey Ortiz ADHD (attention deficit hyperactivity [...] Notes * MARCY MCINTOSHOB:2000 (23 yo F)Acc No.[id number]:06/05/2024 Patient:??DAYNASHIRLEYEN :2000?Age:23 Y?Sex:Fe male Phone: Address:[address] [place] [address] * Refills?? Refill Amphetamine-Dextroamphet ER Capsule Extended Release 24 Hour, 30 MG, Orally, 28 Capsule, 1 capsule in the morning, Once a day, 28 days, Refills=0 * true * Date:??
--- OUTSIDE RECORDS SUMMARY | 2025-02-02 12:57 | XMS_ITS ---
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 Physical Problems Problem Type SNOMED Code ICD Code Onset Dates Problem Status W/U Status Risk Notes Problem Intrauterine contraceptive device in situ (finding) (123643361) Presence of (intrauterine) contraceptive device (Z97.5) Active confirmed Problem High risk heterosexual behavior (097795536308960) High risk heterosexual behavior (Z72.51) Active confirmed Encounters Encounter Location Date Provider Diagnosis [facility] [address] [address] 12/31/2024 MIKE DUNNE Encounter for gynecological examination [...] Up: 1 Year, Reason: Y early Manager Cardiovascular Exam Provider Name:MIKE Morataya, 02/04/2025 02:00:00 PM, [address], [address], [place], [address], Progress Notes * MARCY MCINTOSHOB:2000 (24 yo F)Acc No.[id number]:12/31/2024 PROGRESS NOTES Patient:?EULOGIO MCINTOSH Provider:?MIKE DUNNE MD :2000???Age:24 Y???Sex:Female D ate:12/31/2024 Address:[address] [place], [place] [id number] Subjective: * Chief Complaints: * ???1. Annual BEEF FARMER Physical. 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 ? She has been in state of good health since her last exam. She has the following concerns: none* ? She has received the [employer] Covid-19 vaccine. ? Relationship status: *partnered for [...] by doing Pilates at home. * ROS:?Annual Manager Cardiovascular Exam ROS:?Bowel habit changes?denies.?Bladder symptoms?denies.?Vaginal discharge, unusual?denies.?Vaginal itch or odor?denies.?weight or appetite changes?denies.?Chest pains, SOB?denies.?depression?denies.?Breast:?Denies?Breast lump.?Denies?Nipple discharge.?Hematology:?Denies?Swollen glands.?Skin:?Patient denies?changing moles.?Psychiatric:?Denies?Anxiety.? * Medical History:? Objective: * Vitals:? * Examination: ???General Examination: ?GENERAL APPEARANCE:?in no acute distress,well developed, well nourished,hospital technician present in room.?HEAD:?normocephalic, atraumatic.?NECK/THYROID:?neck supple, full range [...] (general) (routine) without abnormal findings - Z01.419 (Primary)???2.?Presence of (intrauterine) contraceptive device - Z97.5???3.?High risk heterosexual behavior - Z72.51??? Plan: * Treatment: 2.?Presence of (intrauterine ) contraceptive device? Notes: Continue Kyleena until 09/2026?? * Follow Up:?1 Year (Reason: Y early Manager Cardiovascular Exam) * Images: Billing Information: * Visit Code:? 86110 Preventive Care Est Pt. Age 18-39. * Procedure Codes:? 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 She has been in state [...] General Examination GENERAL APPEARANCE: in no ac quileute distress, well developed, well nourished, hospital technician present in room HEAD: normocephalic, atrau matic [...]
--- OUTSIDE RECORDS SUMMARY | 2025-02-02 12:57 | XMS_ITS ---
Author Organization [facility], [facility] Address [address], [place] [id number] Care Team Providers Care Logging Shovel Operator Name Role Phone ISIAH SIMENTAL Primary Care Provider [phone] Kinsey Ortiz [phone] REASON FOR VISIT f/u ADHD SOCIAL HISTORY Sex Assigned At : Social History Observation Description Sex Assigned At Female Encounters Encounter Location Date Provider Diagnosis [facility], [facility] [address], [place] [phone] 06/09/2024 Kinsey Ortiz PLAN OF TREATMENT No Information Progress Notes * MARCY MCINTOSHOB:2000 (24 yo F)Acc No.[id number]:06/09/2024 Progress Notes Patient:??EULOGIO MCINTOSH Provider:??Kinsey Ortiz DNP :2000?Age:23 Y?Sex:Fe male Date:06/09/2024 Phone: Address:[address] [place], [place] [phone] Pcp:ISIAH SIMENTAL Subjective: * Chief Complaints: * ?1. f/u ADHD. * Medical History:?? Objective: Assessment: Plan: * Treatment: * Billing Information: * Visit Code:?? * Procedure Codes:?? * Sign off status: Pending * Provider:??Kinsey Ortiz DNP Date:??04/2024
--- OUTSIDE RECORDS SUMMARY | 2025-02-02 12:57 | XMS_ITS | Clinical Summary ---
Author Organization [facility] Address [address] [place] [address] Phone Care Team Providers Care Blender Conveyor Operator Name Role Phone Unavailable Primary Care Provider [...] of symptoms that would require speaking to public relations associate provider or going to ER. Attention deficit [...] bring about headaches again. Will try Adderall [id number] sent in as a partial fill request [...] looking to get IUD, wait list with FILLING ROOM OPERATOR. Assessment & Plan (02/01/2021 11:59 AM EDT): Did not respond great to the [employer] [place] more anxious on it, periods still painful. She is interested in getting an IUD but would like to stay on the pill until then. Numbers provided for FILLING ROOM OPERATOR. Assessment & Plan (10/24/2020 2:15 PM [...] & Plan (01/03/2022 5:00 PM EST): Waiting public relations associate back from [facility]. Assessment & Plan (12/26/2021 7:06 PM [...] get her in. I also recommended [facility]. She has been on a few [...] in the sertraline, may reach out to [facility] first, or she will talk with her [...] effective. I provided mom with number for [facility] and discussed website psychologytoday to find [...] Completed 07/27/2020, 06/15/2020 Procedures * Due to [place] state law, this organization might not be sharing sensitive test results. Procedure Name Priority Date/Time Associated Diagnosis Comments CHLAMYDIA AND GONORRHEA, AMPLIFIED Routine 12/25/2021 2:16 PM EST Abdominal pain, unspecified abdominal location from Last 3 Months or Most Recently Relevant to Health Maintenance Results * Due to [place] state law, this organization might not be sharing sensitive test results. * Chlamydia and Gonorrhea, Amplified (12/25/2021 2:16 PM EST) Chlamydia Trachomatis, DNA Probe NEGATIVE (NEG) [facility] Comment: No Chlamydia Trachomatis RNA detected in this patient's sample ? (REFERENCE RANGE/NORMAL VALUE: NOT DETECTED) ? Note: This test uses supervisor engine repair- mediated amplification method to detect rRNA from C. Trachomatis URINE GC AMP PROBE NEGATIVE (NEG) [facility] Comment: No Neisseria Gonorrhoeae RNA detected in this patient's sample ? (REFERENCE RANGE/NORMAL VALUE: NOT DETECTED) ? NOTE: This test uses supervisor engine repair-mediated amplification method to detect rRNA from N.Gonorrhoeae. [...] if indicated. Testing performed or reported by [facility], a Service of [facility], [facility] [place] [address] Coorna Vogt MD, Chief Minister [facility]# [id number] Urine (Urine) 12/25/2021 2:1 6 PM EST 12/25/2021 5:48 PM EST Fabi Shaffer ADMINISTRATIVE PROCESSOR LAB MICROBIOLOGY - GENER AL ORDERABLES Final Result [facility] from Last 3 Months or Most Recently Relevant to Health Maintenance Insurance COMMERCIAL
--- OUTSIDE RECORDS SUMMARY | 2025-02-02 12:57 | XMS_ITS ---
Author Organization [facility] Address [address] [facility] [address] [place] [address] Care Team Providers Care Head Baggage Porter Name Role Phone MIKE DUNNE Unavailable [phone] Allergies No Known Allergies Results Component Value Reference Range Notes THIN PREP,HPV IF ASCUS, CT/G C (21-29YR) Reviewed date:12/05/2023 08:25:47 AM Interpretation: Performing Lab:Testing performed or reported by [facility], a Service of [facility], [address] [place] [address] Corona Vogt MD, Extension Service Specialist In Charge [facility]# [id number] Notes/Report: Patient Name: EULOGIO MCINTOSH Patient : 2000 (Age: 22) Lab Collection Date: 11/29/2023 Accession Date: 11/29/2023 Sign Out Date: 12/04/2023 Tissue Source: 1: THINPREP ZIGZAG TOPSTITCHER PAP TEST, CERVICAL: Final Diagnosis: NEGATIVE FOR INTRAEPITHELIAL LESION OR MALIGNANCY. Shift in sabi suggestive of bacterial vaginosis. Satisfactory for evaluation. Endocervical/transformation zone ABSENT. Clinical History: Date of Last Menstrual Period: 10/31/2023 Menstrual History: not available Contraceptive History: not available Ancillary Testing: HPV (ASCUS) Chlamydia/GC Case imaged by the ThinPrep Imaging System with manual rescreening or review. Performed at [facility] department of Cytology, Yasir Montes [facility] Clinical History (other): Z01.419, Z72.51, 1ST PAP Phone #: [phone], On-Call Pathologist: [id number] REASON FOR VISIT Annual ZIGZAG TOPSTITCHER Physical Medications Medication SIG (Take, Route, Frequency, [...] 11/29/2023 Encounters Encounter Location Date Provider Diagnosis [address] [address] 11/29/2023 MIKE DUNNE Encounter for gynecological examination [...] Follow Up: 1 Year, Reason: Y early Field Crew Chief Exam Provider Name:MIKE Morataya, 02/04/2025 02:00:00 PM, [address], [address], [place], [address], Progress Notes * DAYNAMARCYOB:2000 (22 yo F)Acc No.[id number]:11/29/2023 PROGRESS NOTES Patient:?DAYNA EULOGIO Provider:?MIKE DUNNE MD :2000???Age:22 Y???Sex:Female D ate:11/29/2023 Address:[address] [place], [place] [phone] Subjective: * Chief Complaints: * ???Annual ZIGZAG TOPSTITCHER Physical * HPI: ???Constitutional:? 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 ? She has been in state of good health since her last exam. She has the following concerns: none ? She has received the [employer] Covid-19 vaccine. ? Relationship status: partnered for [...] She reports that the periods have gotten papier mache molder since being on OCPs, but they are still irregular. ? The patient has not yet begun screening for cervical cancer - first pap today . ? The patient does exercise. She exercises x 2-3 days/week by doing Pilates at home. * ROS:?Annual Field Crew Chief Exam ROS:?Bowel habit changes?denies.?Bladder symptoms?denies.?Vaginal discharge, unusual?denies.?Vaginal itch or odor?denies.?weight or appetite changes?denies.?Chest pains, SOB?denies.?depression? admits, in good control on meds, denies SI/HI.?Breast:?Denies?Breast lump.?Denies?Nipple discharge.?Hematology:?Denies?Swollen glands.?Skin:?Patient denies?changing moles.?Psychiatric:?Denies?Anxiety.? * Medical History:? * Field Crew Chief History:?/ Para?0/0.?Sexual activity?currently sexually active, with men.?Last [...] brother's girlfriend, MGM. ?Marital status: single. 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 Value Reference Range ?CYTOLOGY, ZIGZAG TOPSTITCHER Patient Name: EULOGIO MCINTOSH - * VAGINAL/CERVICAL, [...] CT/GC (21-29YR)* ? Value Reference Range ?CYTOLOGY, ZIGZAG TOPSTITCHER Patient Name: EULOGIO MCINTOSH - * VAGINAL/CERVICAL, LMP This lab was reviewed by MIKE DUNNE on 12/05/2023 at 08:25 AM EST 3.?Presence of (intrauterine) contraceptive device? Notes: Continue Kyleena until 09/2026?? * Procedure Codes:? * Follow Up:?1 Year (Reason: Y early Field Crew Chief Exam) * Images: Billing Information: * Visit Code:? 37113 Preventive Care Est Pt. Age 18-39. * Procedure Codes:? 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 She has been in state of good health since her last exam. She has the following concerns: none She has received the [employer] Covid-19 vaccine. Relationship status: partnered for 3 [...] She reports that the periods have gotten papier mache molder since being on OCPs, but they are still irregular. The patient has not yet begun screening for cervical cancer - first pap today . The patient does exercise. She exercises x 2-3 days/week by doing Pilates at home. Examination Category Sub-Category Detail Notes Category Not es General Examination GENERAL APPEARANCE: in no ac neha distress, well developed, well nourished, pie maker machine present in room HEAD: normocephalic, atrau matic [...]
--- OUTSIDE RECORDS SUMMARY | 2025-02-02 12:57 | XMS_ITS | Clinical Summary ---
Author Organization [facility] Address [address] [place] [address] Care Team Providers Care Deck Lid Fitter Name Role Phone Pcp, No Primary Care [...] Active fluticasone (FloNASE) 50 mcg/spray nasal sprayIndications:Ac egegik bacterial sinusitis 1 spray into each nostril [...] age to complete this topic Care Teams Deck Lid Fitter Relationship Specialty Start Date End Date Pcp, No PCP - General General Medicine 06/23/24
--- OUTSIDE RECORDS SUMMARY | 2025-02-02 12:57 | XMS_ITS | Encounter Summary ---
Author Organization [facility] Address [address] [place] [address] Phone Care Team Providers Care String Cutter Name Role Phone Provider, López JENKINS Primary Care Provider [phone] Encounter Details Date Type Department Care Team (Late st Contact Info) Description 03/23/2018 Conversion [facility]counter [facility] [address] [address] Violetta Sparks MD [address] [place] [address] Social History Tobacco Use Types Packs/Day Years [...] on filedocumented in this encounter Care Teams String Cutter Relationship Specialty Start Date End Date Provider, MD López [address] [place] [address] PCP - General Pediatrics 11/12/22 08/31/24 documented as of this encounter
--- OUTSIDE RECORDS SUMMARY | 2025-02-02 12:57 | XMS_ITS | Patient Health Record ---
Author Organization [facility] Address [address] [facility] [address] [place] [address] Care Team Providers Care Motorboat Mechanic Name Role Phone MIKE DUNNE Unavailable [phone] Allergies No Known Allergies Reason For Referral [...] Status Risk Notes Problem Abnormal uterine bleeding (59988687259484) Abnormal uterine and vaginal bleeding, unspecified (N93.9) Active confirmed Problem Attention deficit hyperactivity disorder, predominantly inattentive type (disorder) (41491109) Attention and concentration deficit (R41.840) Active confirmed Problem High risk heterosexual behavior (659312052417358) High risk heterosexual behavior (Z72.51) Active confirmed Problem Intrauterine contraceptive device in situ (finding) (287909870) Presence of (intrauterine) contraceptive device (Z97.5) Active confirmed Problem Body mass index 35.00 to 39.99 (516986535813059) Body mass index [BMI] 38.0-38.9, adult (Z68.38) Active confirmed Plan Of Treatment Pending Test Test Name Order Date Test, Urine 09/20/2021 CHLAMYDIA GC AMP PROBE 01/12/2022 ULTRASOUND: PELVIC W/TRANSVAGINAL 2021 Next Appt Details Provider Name:MIKE Morataya, 02/04/2025 02:00:00 PM, [address] [facility], [address], [place], [address], Insurance Providers Payer Name Payer Address Payer Phone Subscriber Number Group Number Insured Name Patient Relationship to Insured Coverage Start Date Coverage End Date [employer] [place] [address] [place] [address] [id number] [facility] DANNIE MCINTOSH Child - Insured has Financial Responsibility Medical (General) History Medical History History ICD Code Attention and concentration deficit R41. 840 Anxiety disorder, unspecified F41.9 Major depressive disorder, recurrent sev ere without psychotic features F33.2 Surgical History Surgery Date(Month/Year)
== END 2025-02-02 11:25 | disposition home or self-care (01) ==
LOC: HO.HMCFM 10:48
PROVIDERS: PCP Nurse Practitioner Family; Visit Provider Nurse Practitioner Family
DX: R63.4 Abnormal weight loss (principal)

== ENCOUNTER → 2025-02-02 10:47 | Outpatient (BNVA) | payer BC, SELFPAY | PROVIDERS: PCP Nurse Practitioner Family; Visit Provider Nurse Practitioner Family ==

== ENCOUNTER 2025-03-05 09:13 | Outpatient (AMB) | payer BC, SELFPAY ==
--- NOTE | 2025-03-05 09:14 | MHC.PC.OV ---
Vital Signs 03/05/25 09:18 Height 5 ft 4 in Weight 129 lb 4 oz BMI 22.2 BP 118/70 Blood Pressure Location Rt brachial Position Sitting Respiration 16 Pulse 66 Pulse Source Pulse Oximeter Temp 97.6 F Temp Source Oral Pulse Oximetry (%) 100 Oxygen Delivery Method Room Air Intake Visit Reasons: 1 mos weight loss Intake Note: patient here for 1 month follow up for weight loss Side Gluer Required: No Is last menstrual period known: Yes Last menstrual period: 02/10/25 Post menopausal: No Patient : No Allergies No Known Allergies Allergy (Verified 03/05/25 09:29) Medication List - Last Reconciled 03/05/25 by Emre Decker CNP alprazolam 0.5 mg PO DAILY PRN lisdexamfetamine (Vyvanse) 20 mg PO QAM 28 days sertraline 50 mg PO DAILY Tobacco use date assessed: 03/05/25 Dental Screening Dental Screen Date: 03/05/25 Did you have a dental visit in the last 12 months?: Yes Did you have a dental problem in the last 6 months where you did not have access to dental care?: No Was dental information given to patient?: Patient has dentist HPI HPI Comments History of Present Illness Details 24-year-old female presents for weight loss follow-up. She has had loss of appetite and weight loss over the course of a year. She lost 21 lb in the past 8 months. She was on dexamethasone-amphetamine which was switched to Vyvanse 20 mg daily at her last visit. She gained 3 lb since her last visit. No night sweats or heat intolerance. She generally sleeps well. No acute symptoms at this time. [facility] Medical History (Updated 12/24/24 @ 16:30 by Emre Decker CNP) ADHD Depression Anxiety Postural orthostatic tachycardia syndrome [POTS] IBS (irritable bowel syndrome) Surgical History (Updated 07/31/24 @ 11:23 by Jennifer Wetzel MA) History of surgical removal of ganglion cyst Family History (Updated 07/31/24 @ 11:26 by Jennifer Wetzel MA) Mother FH: mental illness Paternal Grandmother Asthma Father High blood pressure High cholesterol Cardiovascular disease Maternal Grandmother High blood pressure Diabetes Cardiovascular disease Maternal Grandfather Clotting disorder Social History Housing: House Patient Tobacco Use Status: Never used Tobacco e-Cigarette/Vaping Use: Never Used Second Hand Smoke Exposure: No service: No Current occupational status: student Current occupational exposures/hazards: No Cognitive needs: No Hearing needs: No Vision needs: No Female Reproductive History Menstrual Date of last menstrual period: 02/10/25 Questionnaire Thrive Questionnaire Date Thrive assessed: 12/24/24 I am a: Patient What is your living situation today?: I have a steady place to live Within the past 12 months, did the food you bought not last and you didn't have the money to get more?: Never true Within the past 12 months, did you worry whether your food would run out before you got money to buy more?: Never true Do you have trouble paying for medicines?: No Do you have trouble getting transportation to medical appointments?: No Do you have trouble paying your heating and electricity bill?: No Do you have trouble taking care of your child, family member or friend?: No Do you have trouble with day-to-day activities such as bathing, preparing meals, shopping, managing finances, etc.?: No Are you currently unemployed and looking for a job?: No Are you interested in more education?: No Please select the resources that you would like help with: None Currently or been in a relationship where the following occur: No concerns reported THRIVE Score: 0 PAUL-7 AMB Questionnaire PAUL-7 Date PAUL - 7 assessed: 12/24/24 Source: Developed by Drs. Jack Vásquez, Michelle Ventura, Clayton George and colleagues, with an educational eleonora from [employer]. Review of Systems Const Details: Const Denies chills, Denies fatigue, Denies fever(s), Denies headache(s) and Denies weakness ENT Denies dizziness and Denies headache(s) Card Denies chest pain, Denies lightheadedness, Denies dyspnea and Denies other (Palpitations) Resp Denies cough, Denies dyspnea, Denies wheezing and Denies other ( shortness of breath) GI Denies abdominal pain, Denies melena, Denies hematochezia, Denies change in bowel habits, Denies dyspepsia and Denies nausea Denies hematuria and Denies dysuria Musc Denies abnormal gait, Denies myalgias, Denies arthralgias, Denies numbness and Denies tingling Skin/Breast Denies rash, Denies unusual bruising and Denies wounds Neuro Denies abnormal gait, Denies dizziness, Denies headache(s), Denies memory loss, Denies numbness, Denies Sensory deficit (Neuro), Denies tingling and Denies weakness Psych Denies anxiety, Denies depression, Denies memory loss Endo Denies cold intolerance, Denies fatigue, Denies heat intolerance, Denies polydipsia and Denies polyuria Aller/Immun Denies wheezing Physical exam (Primary Care) Vital Signs: Last Vital Signs Temp 97.6 F 03/05/25 09:18 Pulse 66 03/05/25 09:18 Resp 16 03/05/25 09:18 BP 118/70 03/05/25 09:18 Pulse Ox 100 03/05/25 09:18 Oxygen Delivery Method Room Air 03/05/25 09:18 BMI result Body Mass Index 22.2 Tobacco/Smoking Status: Tobacco use Status Tobacco use date assessed 03/05/25 03/05/25 09:21 Patient Tobacco Use Status Never used Tobacco 03/05/25 09:17 e-Cigarette/Vaping Use Never Used 03/05/25 09:17 Thrive Assessment: Date of Thrive Assessment Date Thrive assessed 12/24/24 03/05/25 09:17 Currently or been in a relationship where the following occur: No concerns reported Const Other: General: no acute distress and well developed Nutritional Appearance: well nourished Orientation/consciousness: patient oriented x3 HENMT Head: Yes normocephalic and Yes atraumatic Eyes General: appearance normal, both eyes and all related structures Pupils: Equal, round and reactive pupils present EOM: EOMs intact bilaterally Resp Effort & Inspection: normal respiratory effort Auscultation: clear to auscultation bilaterally Cardio Rate: regular rate Rhythm: regular rhythm Heart sounds: S1 normal heart sound present, S2 normal heart sound present, no gallops, no murmurs and no rubs GI Palpation (GI): No Abdominal aortic bruit present, Soft to palpation, nontender, No hepatosplenomegaly present and No Rebound tenderness present Auscultation: normal bowel sounds General: Yes no CVA tenderness Back/Spine/Pelvis Back: no CVA tenderness Cervical Spine: cervical ROM normal and No Cervical spine tenderness Thoracic/Lumbar Spine: thoraco-lumbar ROM normal, No pain with thoraco-lumbar ROM, No thoracic spinal tenderness and No lumbar spinal tenderness Extrem General: Yes normal to inspection, No edema and No calf tenderness Skin General: warm and dry. Normal skin color. Normal skin turgor Neuro General: patient oriented x3, gait normal and no focal neuro deficit Cranial nerves: Yes Equal, round and reactive pupils present Cognition (Neuro): normal cognition Gait exam (Neuro): Normal gait present Sensory Exam: No Sensory deficit (Neuro) Psych Appearance: grossly normal Affect: normal affect Attitude: cooperative Thought process: Normal thought process present Coding Level of Care Code Est Pt Level 3 (83939) Diagnoses Weight loss, unintentional R63.4 ADHD F90.9 Assessment & Plan Assessment & Plan (1) Weight loss, unintentional: Code(s): R63.4 - Abnormal weight loss Category: Medical Plan: 24-year-old female presents for weight loss follow-up. She has had loss of appetite and weight loss over the course of a year. She lost 21 lb in the past 8 months. She was on dexamethasone-amphetamine which was switched to Vyvanse 20 mg daily at her last visit. She gained 3 lb since her last visit. No night sweats or heat intolerance. She generally sleeps well. No acute symptoms at this time. Continue to take Vyvanse 20 mg daily. Instructed on healthy diet including protein. She notes that she has been consuming protein shakes. Advised to monitor her weight weekly and inform PCP if she starts to lose weight. Verbalized understanding and agreed with the plan. (2) ADHD: Code(s): F90.9 - Attention-deficit hyperactivity disorder, unspecified type Category: Medical Plan: Reports controlled ADHD symptoms. Continue to take Vyvanse as prescribed. Follow-up for an extended physical exam in 1 month. Return sooner with symptoms or concerns. Verbalized understanding and agreed with the plan.
[2025-03-05 09:18] VITALS: BP 118/70; PULSE 66; RESP 16; TEMP 36.4; O2SAT 100; BMI 22.2
--- OUTSIDE RECORDS SUMMARY | 2025-03-05 09:51 | XMS_ITS | Clinical Summary ---
Author Organization [facility] Address [address] [place] [address] Phone Care Team Providers Care Outpatient Program Coordinator Name Role Phone Unavailable Primary Care Provider [...] of symptoms that would require speaking to lithopone charger provider or going to ER. Attention deficit [...] bring about headaches again. Will try Adderall [id number] sent in as a partial fill request [...] looking to get IUD, wait list with RETAIL ACCOUNT EXECUTIVE. Assessment & Plan (02/01/2021 11:59 AM EDT): Did not respond great to the [place] [place] more anxious on it, periods still painful. She is interested in getting an IUD but would like to stay on the pill until then. Numbers provided for [employer]AIL ACCOUNT EXECUTIVE. Assessment & Plan (10/24/2020 2:15 PM EST): [...] & Plan (01/03/2022 5:00 PM EST): Waiting lithopone charger back from [facility]. Assessment & Plan (12/26/2021 7:06 PM [...] get her in. I also recommended trying [facility] or [facility]. She has been on a few SSRIs [...] in the sertraline, may reach out to [facility] first, or she will talk [...] effective. I provided mom with number for [facility] and discussed website psychologytoday to find a [...] Completed 07/27/2020, 06/15/2020 Procedures * Due to [place] state law, this organization might not be sharing sensitive test results. Procedure Name Priority Date/Time Associated Diagnosis Comments CHLAMYDIA AND GONORRHEA, AMPLIFIED Routine 12/25/2021 2:16 PM EST Abdominal pain, unspecified abdominal location from Last 3 Months or Most Recently Relevant to Health Maintenance Results * Due to [place] state law, this organization might not be sharing sensitive test results. * Chlamydia and Gonorrhea, Amplified (12/25/2021 2:16 PM EST) Chlamydia Trachomatis, DNA Probe NEGATIVE (NEG) [facility] Comment: No Chlamydia Trachomatis RNA detected in this patient's sample ? (REFERENCE RANGE/NORMAL VALUE: NOT DETECTED) ? Note: This test uses calenderer- mediated amplification method to detect rRNA from C. Trachomatis URINE GC AMP PROBE NEGATIVE (NEG) [facility] Comment: No Neisseria Gonorrhoeae RNA detected in this patient's sample ? (REFERENCE RANGE/NORMAL VALUE: NOT DETECTED) ? NOTE: This test uses calenderer-mediated amplification method to detect rRNA from N.Gonorrhoeae. [...] without risk of sexual abuse. Consult the [facility] if needed. Contact phone number . Therapeutic failure or success cannot be determined with the Aptima Combo2 assay since nucleic acid may persist following appropriate antimicrobial therapy. The Centers for Disease Control and Prevention (CDC) recommends confirmatory retesting using culture or a different nucleic acid amplification test when positive results occur, if indicated. Testing performed or reported by [facility], a Service of [facility], [facility] [place] [address] Corona Vogt MD, Therapeutic Support Staff [facility]# [id number] Urine (Urine) 12/25/2021 2:1 6 PM EST 12/25/2021 5:48 PM EST Fabi Shaffer MENTAL HEALTH TECHNICIAN LAB MICROBIOLOGY - GENER AL ORDERABLES Final Result [facility] from Last 3 Months or Most Recently Relevant to Health Maintenance Insurance COMMERCIAL
--- OUTSIDE RECORDS SUMMARY | 2025-03-05 09:51 | XMS_ITS | Clinical Summary ---
Author Organization [facility] Address [address] [place] [address] Care Team Providers Care Direct Support Staff Name Role Phone Pcp, No Primary Care Provider Unavailabl e Allergies No known active allergies Medications amphetamine-dex troamphetamine (ADDERALL XR) 30 MG 24 hr capsule TAKE 1 CAPSULE BY MOUTH DAILY IN THE MORNING 4 Active sertraline (ZOLOFT) 50 MG tablet Take 50 mg by mouth. 4 Active levonorgestrel (Kyleena) 19.5 MG IUD IUD by Intrauterine route. Active fluticasone (FloNASE) 50 mcg/spray nasal sprayIndication s:Acute bacterial sinusitis 1 spray into each nostril daily. 1 each 4 Active predniSONE (DELTASONE) 20 MG tabletIndicatio ns:Acute bacterial sinusitis Take 1 tablet (20 mg total) by mouth 2 (two) times a day. With food. 6 tablet 4 Active Social History Tobacco Use Types Packs/Day Years Used Date Smoking Tobacco: Never Assessed Comments Unknown Sex and Gender Information Value Date Recorded Sex Assigned at Not on file Legal Sex Female 10:40 AM EDT Gender Identity Not on file Sexual Orientation [...] 09/23/2019, Additional history exists COVID-19 Vaccine ( - 2023- season) 2024 01/29/2021 Pneumococcal Vaccine: Pediatric (0-5 Years) and At-Risk Patients (6 to 49 Years) Aged Out No longer eligible based on patient's age to complete this topic Insurance [facility] - O Care Teams Direct Support Staff Relationship Specialty Start Date End Date Pcp, No PCP - General General Medicine 06/23/24
--- OUTSIDE RECORDS SUMMARY | 2025-03-05 09:51 | XMS_ITS | Data Portability ---
Author Organization [facility] [address] Address [address] [place] [address] Assessment No assessment recorded. Plan of Treatment [...] By Organization Details Last Modified Time 12/01/2022 [id number] This physical does not replace the annual [...] SNOMED-CT Code Diagnosis ICD10 Code Diagnosis Note [id number] [address] [place] [address] 02/18/2020 16:20:13 02/18/2020 16:48:25 [id number] [address] [address] [place] [address] 09/21/2021 13:17:47 09/21/2021 15:24:59 [id number] Daniele Zendejas, BOTTLE HOUSE QUALITY CONTROL TECHNICIAN [address] [facility] [address] [place] [address] 12/01/2022 11:58:27 12/01/2022 12:42:51 History and physical examination, pre-employment [id number] Z02.1 Health Concerns Section Related Observation LastModified by Organization Norm ls LastModified Time None Recorded Concern Status LastModified by Organization Details LastModified Time None Recorded Advance Directives Directive None Recorded Payers Encounter Date Sequence Insurance Name Policy Number Policy Neil Covered Member ID Neil Member ID Guarantor Name 02/18/2020 1 [facility] [id number] Danyell James [place] [id number] Danyell [place] 12/01/2022 DO NOT USE Danyell [place] PHYSICAL PHYSICAL Danyell [place] Notes Date Note Type Note Provider Name a nd Address Organization Details Recorded Time 12/01/2022 text/html physical Daniele MARITA Zendejas [address] [place], [address], [place] - [facility] 12/01/2022 12:40:29 OBGyn Episode No OBEpisode recorded.
--- OUTSIDE RECORDS SUMMARY | 2025-03-05 09:51 | XMS_ITS ---
Author Organization [facility] Address [address] [place] [phone] Care Team Providers Care Marketing Content Specialist Name Role Phone ISIAH SIMENTAL Primary Care Provider [phone] Kinsey Ortiz Unavailable [phone] REASON FOR VISIT Refills MEDICATIONS Medication SIG (Take, Route, Frequency, Duration) Notes Start Date End Date Status Amphetamine-Dextroamphet ER 30 MG 1 capsule in the morning Orally Once a day for 28 days 06/05/2024 Active SOCIAL HISTORY Sex Assigned At : Social History Observation Description Sex Assigned At Female Encounters Encounter Location Date Provider Diagnosis [facility], [address] [id number] 06/05/2024 Kinsey Ortiz ADHD (attention deficit hyperactivity [...] Notes * MARCY MCINTOSHOB:2000 (23 yo F)Acc No.[id number]:06/05/2024 Patient:??DAYNASHIRLEY GomezEN :2000?Age:23 Y?Sex:Fe male Phone: Address:[address] [place] [address] * Refills?? Refill Amphetamine-Dextroamphet ER Capsule Extended Release 24 Hour, 30 MG, Orally, 28 Capsule, 1 capsule in the morning, Once a day, 28 days, Refills=0 * true * Date:??
--- OUTSIDE RECORDS SUMMARY | 2025-03-05 09:51 | XMS_ITS | Patient Health Record ---
Author Organization [facility] Address [address] [place] [phone] Care Team Providers Care Crm Business Analyst Name Role Phone ISIAH SIMENTAL Primary Care Provider Kinsey Ortiz Unavailable [phone] ALLERGIES No Known Allergies REASON FOR REFERRAL No Information MEDICATIONS Medication [...] Tobacco use: nonsmoker Section Notes: Lives in [place], [place] with boyfriend, mom & brother & brother's girlfriend & MGMother Lives in [place], [place] with boyfriend, mom & brother & brother's girlfriend & MGMother Lives in [place], [place] with boyfriend, mom & brother & brother's girlfriend & MGMother Lives in [place] with boyfriend, mom & brother & brother's girlfriend & MGMother Lives in [place] with boyfriend, mom & brother & brother's girlfriend & MGMother Lives in [place] with boyfriend, mom & brother & brother's girlfriend & MGMother Lives in [place] with boyfriend, mom & brother & brother's girlfriend & MGMother Lives in [place] with boyfriend, mom & brother & brother's girlfriend & MGMother Lives in [place] with boyfriend, mom & brother & brother's girlfriend & MGMother Lives in [place] with boyfriend, mom & brother & brother's girlfriend & MGMother Lives in [place] with boyfriend, mom & brother & brother's girlfriend & MGMother PROBLEMS Problem Type ICD Code Onset Dates Problem Status W/U Status Risk SNOMED Code Notes Problem Mixed hyperlipidemia (E78.2) Active confirmed 561565062 Problem ADHD (attention deficit hyperactivity disorder), combined type (F90.2) Active confirmed 06986116 Problem Moderate depressive disorder (F32.A) Active confirmed 597439144 Problem Serum calcium elevated (E83.52) Active confirmed 19565542 Problem Situational anxiety (F41.8) Active confirmed 04411706 Problem 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) Active confirmed 032274221 Encounters Encounter Location Date Provider Diagnosis [address] [id number] 06/09/2024 Kinsey Ortiz [address] [id number] 03/17/2024 Kinsey Ortiz Situational anxiety F41.[address] [id number] 04/21/2024 Kinsey Ortiz ADHD (attention deficit hyperactivity disorder), combined type F90.2 and Situational anxiety F41.[address] [id number] 06/05/2024 Kinsey Ortiz ADHD (attention deficit hyperactivity disorder), combined type F90.[address] [id number] 06/09/2024 Kinsey Ortiz [address] [place] [id number] 03/12/2024 Kinsey Ortiz ADHD (attention deficit hyperactivity disorder), combined type F90.2 ASSESSMENTS Encounter Date Diagnosis Assessment Notes Treatment Notes Treatment Clinical Notes Section Notes 03/12/2024 ADHD (attention deficit hyperactivity disorder), combined type (ICD-10 - F90.2) 03/17/2024 Situational anxiety (ICD-10 - F41.8) 04/21/2024 ADHD (attention deficit hyperactivity disorder), combined type (ICD-10 - F90.2) 06/05/2024 ADHD (attention deficit hyperactivity disorder), combined type (ICD-10 - F90.2) 04/21/2024 Situational anxiety (ICD-10 - F41.8) PLAN OF TREATMENT Future Test Test Name Order Date THYROID PEROXIDASE AND THYROGLOBULIN ANT IBODIES (7260) 10/17/2023 THYROID PANEL WITH TSH (7444) 10/17/2023 DRUG MONITOR, BASE PANEL, W/CONF, URINE (79804) 10/17/2023 CARDIO IQ(R) LIPID PANEL (83981) 023 COMPREHENSIVE METABOLIC PANEL (61064) CARDIO IQ(R) LIPOPROTEIN (a) (48251) CBC (INCLUDES DIFF/PLT) (6399) URINALYSIS, COMPLETE W/REFLEX TO CULTURE (3020) 10/17/2023 CARDIO IQ(R) HS CRP (87977) 10/17/2023 CARDIO IQ(R) APOLIPOPROTEIN A1 (00057) 1 12/18/2022 CARDIO IQ(R) APOLIPOPROTEIN B (22419) CARDIO IQ(R) HOMOCYSTEINE (20774) 2022 CARDIO IQ(R) INSULIN (40268) 10/17/2023 CARDIO IQ(R) VITAMIN D, 25 HYDROXY (9173 5) 10/17/2023 DRUG MONITOR,AMPHETAMINE, W/CONF, URINE (09474) 10/17/2023 HEPATITIS B IMMUNITY PANEL (7105) 2023 QUANTIFERON(R)-TB GOLD PLUS, 1 TUBE (569 23) 02/26/2024 Insurance Providers Payer Name Payer Address Payer Phone Subscriber Number Group Number Insured Name Patient Relationship to Insured Coverage Start Date Coverage End Date [employer] AN[employer] [address] [place] [address] [id number] EULOGIO MCINTOSH Self - patient is the insured MEDICAL (GENERAL) HISTORY Medical History History ICD Code Anxiety Depression Fx - left foot Irritable Bowel Syndrome Migraines Pneumonia Surgical History Surgery Date(Month/Year) Colonoscopy
--- OUTSIDE RECORDS SUMMARY | 2025-03-05 09:51 | XMS_ITS ---
Author Organization [facility] Address [address] [facility] [address] [place] [address] Care Team Providers Care Outpatient Phlebotomist Name Role Phone DUNNEMIKE Unavailable [phone] REASON FOR VISIT Annual SUPERVISOR ABATTOIR Physical Encounters Encounter Location Date Provider Diagnosis [facility] [address] [facility] [address] [place] [address] 12/04/2024 MIKE DUNNE Encounter for gynecological examination [...] Follow Up: 1 Year, Reason: Y early Laborer Tin Can Exam Provider Name:MIKE Morataya, 03/12/2025 01:00:00 PM, [address] [facility], [address], [place], [address], Provider Name:MIKE Morataya, 02/10/2026 10:00:00 AM, [address], [address], [place], [address], Progress Notes * MARCY MCINTOSHOB:2000 (24 yo F)Acc No.[id number]:12/04/2024 PROGRESS NOTES Patient:?EULOGIO MCINTOSH Provider:?MIKE DUNNE MD :2000???Age:23 Y???Sex:Female D ate:12/04/2024 Address:[address] [place], [place] [id number] Subjective: * Chief Complaints: * ???1. 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 ? She has been in state of good health since her last exam. She has the following concerns: none* ? She has received the [place] Covid-19 vaccine. ? Relationship status: *partnered for [...] by doing Pilates at home. * ROS:?Annual Laborer Tin Can Exam ROS:?Bowel habit changes?denies.?Bladder symptoms?denies.?Vaginal discharge, unusual?denies.?Vaginal itch or odor?denies.?weight or appetite changes?denies.?Chest pains, SOB?denies.?depression?denies.?Breast:?Denies?Breast lump.?Denies?Nipple discharge.?Hematology:?Denies?Swollen glands.?Skin:?Patient denies?changing moles.?Psychiatric:?Denies?Anxiety.? * Medical History:? Objective: * Vitals:? * Examination: ???General Examination: ?GENERAL APPEARANCE:?in no acute distress,well developed, well nourished,chip tuner present in room.?HEAD:?normocephalic, atraumatic.?NECK/THYROID:?neck supple, full range [...] * Follow Up:?1 Year (Reason: Y early Laborer Tin Can Exam) * Images: Billing Information: * Visit Code:? 78112 Preventive Care Est Pt. Age 18-39. * Procedure Codes:? 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 She has been in state [...] ac neha distress, well developed, well nourished, chip tuner present in room HEAD: normocephalic, atrau matic [...]
--- OUTSIDE RECORDS SUMMARY | 2025-03-05 09:51 | XMS_ITS ---
Author Organization [facility], [facility] Address [address], [place] [phone] Care Team Providers Care Aircraft Sheet Metal Mechanic Name Role Phone ISIAH SIMENTAL Primary Care Provider [phone] Kinsey Ortiz [phone] REASON FOR VISIT f/u ADHD SOCIAL HISTORY Sex Assigned At : Social History Observation Description Sex Assigned At Female Encounters Encounter Location Date Provider Diagnosis [facility], [facility] [address], [place] [phone] 06/09/2024 Kinsey Ortiz PLAN OF TREATMENT No Information Progress Notes * MARCY MCINTOSHOB:2000 (24 yo F)Acc No.[id number]:06/09/2024 Progress Notes Patient:??DAYNA EULOGIO Provider:??Kinsey Ortiz DNP :2000?Age:23 Y?Sex:Fe male Date:06/09/2024 Phone: Address:[address] [place], [place] [phone] Pcp:ISIAH SIMENTAL Subjective: * Chief Complaints: * ?1. f/u ADHD. * Medical History:?? Objective: Assessment: Plan: * Treatment: * Billing Information: * Visit Code:?? * Procedure Codes:?? * Sign off status: Pending * Provider:??Kinsey Ortiz DNP Date:??04/2024
--- OUTSIDE RECORDS SUMMARY | 2025-03-05 09:51 | XMS_ITS | Encounter Summary ---
Author Organization [facility] Address [address] [place], [place] [phone] Phone Care Team Providers Care Radio Performer Name Role Phone Provider, López JENKINS Primary Care Provider Reason for Visit * Reason Onset Date Comments Med Refill 10/07/2020 Encounter Details Date Type Department Care Team (Late st Contact Info) Description 10/07/2020 [facility]ill [facility] [address] [address] Fabi Shaffer NP Anxiety and depression Social [...] depression documented in this encounter Care Teams Radio Performer Relationship Specialty Start Date End Date Provider, MD López [address] [place] [address] PCP - General Pediatrics 11/12/22 08/31/24 documented as of this encounter
--- OUTSIDE RECORDS SUMMARY | 2025-03-05 09:51 | XMS_ITS | Encounter Summary ---
Author Organization [facility] Address [address] [place] [address] Phone Care Team Providers Care Drawer Hardware Worker Name Role Phone Provider, López JENKINS Primary Care Provider [phone] Encounter Details Date Type Department Care Team (Late st Contact Info) Description 03/23/2018 Conversion Encounter [facility] [address] [address] Violetta Sparks MD [address] [place] [address] Social History Tobacco Use Types Packs/Day Years [...] on filedocumented in this encounter Care Teams Drawer Hardware Worker Relationship Specialty Start Date End Date Provider, MD López [address] [place] [address] PCP - General Pediatrics 11/12/22 08/31/24 documented as of this encounter
--- OUTSIDE RECORDS SUMMARY | 2025-03-05 09:51 | XMS_ITS ---
Author Organization [facility] Address [address] [place] [address] Care Team Providers Care Engineering Project Manager Name Role Phone MIKE DUNNE Unavailable [phone] Allergies No Known Allergies Results Component Value Reference Range Notes PDF Report Reviewed date:02/08/2025 08:47:21 AM Interpretation: Performing Lab:[facility], [address], [address], [place], Phone - [phone], [facility] Notes/Report: Clinical Information:CERVIX Chlamydia/GC Amplification Reviewed date:02/08/2025 08:24:05 AM Interpretation: Performing Lab:[facility], [address], [place], Phone - [phone], [facility] Notes/Report: Clinical Information:CERVIX Chlamydia trachomatis, SG Negative Negative Neisseria gonorrhoeae, SG Negative Negative REASON FOR VISIT Annual RECOVERY ADVOCATE Physical Medications Medication SIG (Take, Route, Frequency, Duration) Notes Start Date End Date Status Adderall XR 20 MG 1 capsule in the mor corrina Orally Once a day Active ALPRAZolam 0.5 MG 1 tablet Orally Twice a day uses prn Active Sertraline HCl 100 MG 1 tablet Orally On ce a day for 30 day(s) Active Kyleena 19.5 MG as directed Intrauterine Active Social History Tobacco Use: Social History [...] Points 1 Interpretation Negative Vital Signs Temperature 98.0 degrees Fahrenheit 02/05/20 25 Blood pressure systolic 116 mm Hg 02/05/20 25 Blood pressure diastolic 68 mm Hg 025 Height 64 in 02/04/2025 Weight 122 lbs 02/04/2025 BMI 20.94 kg/m2 02/04/2025 Encounters Encounter Location Date Provider Diagnosis [facility] [address] [place] [address] 02/04/2025 MIKE DUNNE Encounter for gynecological examination (general) (routine) without abnormal findings Z01.419 ; High risk heterosexual behavior Z72.51 and Abdominal distension (gaseous) R14.0 Assessments Encounter Date Diagnosis (ICD Code) Assessment Notes Treatment Notes Treatment Clinical Notes Section Notes 02/04/2025 Encounter for gynecological examination (general) (routine) without abnormal findings (ICD-10 - Z01.419) Discussed cervical cancer screening with cytology every 3 years as per ASCCP guidelines. Advised continued annual pelvic exams. Patient encouraged to increase her level of exercise. SBE technique encouraged/tau ght. Safe sexual practices and STI prevention discussed. 02/04/2025 High risk heterosexual behavior (ICD-10 - Z72.51) 02/04/2025 Abdominal distension (gaseous) (ICD-10 - R14.0) Plan Of Treatment Treatment Notes Assessment Notes Encounter for gynecological examination (general) (routine) without abnormal findings Discussed cervical cancer screening with cytology every 3 years as per ASCCP guidelines. Advised continued annual pelvic exams. Patient encouraged to increase her level of exercise. SBE technique encouraged/taught. Safe sexual practices and STI prevention discussed. Pending Test Test Name Order Date ULTRASOUND: PELVIC W/TRANSVAGINAL 2024 Chlamydia/GC Amplification-[id number] 2024 Next Appt Details Follow Up: 1 Year, Reason: Y early Tire Retreader Exam Provider Name:MIKE Morataya, 03/12/2025 01:00:00 PM, [address], [address], [place], [address], Provider Name:MIKE Ruff ROSHAN Morataya, 02/10/2026 10:00:00 AM, [address], [address], [place], [address], Progress Notes * MARCY MCINTOSHOB:2000 (24 yo F)Acc No.[id number]:02/04/2025 PROGRESS NOTES Patient:?EULOGIO MCINTOSH Provider:?MIKE DUNNE MD :2000???Age:24 Y???Sex:Female D ate:02/04/2025 Address:[address] [place], [place] [phone] Subjective: * Chief Complaints: * ???Annual RECOVERY ADVOCATE Physical * HPI: ???Constitutional:?Eulogio is a 24yo G0 with LMP 01/29/25 who 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 ? She has been in state of good health since her last exam. She has the following concerns: she reports a near 50 lb weight loss in the last year without trying. She is working with her PCP, who feels it is due to her Adderall, so she has stopped using that. She reports no unusual symptoms other than early satiety, and bloating. She reports that her PCP wouldn't refer her to GI. ? She has received the [employer] Covid-19 vaccine. ? Relationship status: partnered for 4 years, engaged since 12/19/24. No date set yet. She is sexually active. Sexual partner(s): male. She does not wish to have STI testing. She accepts CDC-recommended GC/CT screening. ? Menses: irregular, sometimes twice monthly,?lasting anywhere from 3-7 days, sometimes heavy, sometimes moderate. She reports some random spotting on occasion. ? Contraception:? Kyleena IUD, inserted in 09/2021. ? The patient has never had an abnormal pap smear. The most recent pap smear was 11/29/23 - NIL. Next due for pap in 2026. ? The patient does not exercise. She walks daily, about 10 minutes with her dogs. * ROS:?Annual Tire Retreader Exam ROS:?Bowel habit changes?denies.?Bladder symptoms?denies.?Vaginal discharge, unusual?denies.?Vaginal itch or odor?denies.?weight or appetite changes?denies.?Chest pains, SOB?denies.?depression? admits, seasonal affective disorder; she does not have a therapist.?Breast:?Denies?Breast lump.?Denies?Nipple discharge.?Hematology:?Denies?Swollen glands.?Skin:?Patient denies?changing moles.?Psychiatric:?Admits?Anxiety,?uses distraction.? * Medical History:? * Tire Retreader History:?/ Para?0/0.?Sexual activity?currently sexually active, with men.?Last Pap Smear:?11/29/23 NIL.?Mammogram:?not due per age.?LMP and menses?01/29/2025, 01/01/23.?History of STD's:?None.? Control:?Kyleena intrauterine device placed 09/10/21.?Menarche?13.?Gardasil:?series completed.? * OB History:?Total pregnancies?.? * Surgical History:?Denies Pas t Surgical History * Hospitalization/Major Diagno stic Procedure:?Denies Past Hospitalization * Family History:?Mother: shauna e 53 yrs, anxiety.?Father: alive 52 yrs, CABG x 3 in 2013.?Maternal Grand Mother: alive, uterine cancer, ?breast cancer?.?Brother Saleem: alive 30 yrs, well.? * Social History:?Tobacco Use:?Tobacco Use/Smoking?Are [...] the past year??Never (0 point) ?Points?1 ?Interpretation?Negative ???Miscellaneous:?Domestic violence: no. ?Exercise: Gym, Walks, Cardio. ?Home smoke detector use: yes, smoke detectors, carbon monoxide detector. ?Housing: living with relatives. ?Living with: mom, boyfriend. ?Marital status: single, in relationship with male partner - engaged as of 12/19/24 to Misha. 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 ?Pets: dogs: 2 (luis eduardo rosenbaum). ?Sexual abuse: no. ?Verbal abuse: no. * Medications:?TakingALPRAZola m 0.5 MG Tablet 1 tablet Orally Twice a day , Notes to Pharmacist: uses prnAdderall XR 20 MG Capsule Extended Release 24 Hour 1 capsule in the morning Orally Once a day Kyleena 19.5 MG Intrauterine Device as directed Intrauterine Sertraline HCl 100 MG Tablet 1 tablet Orally Once a day Medication List reviewed and reconciled with the patientTaking ALPRAZolam 0.5 MG Tablet 1 tablet Orally Twice a day , Notes to Pharmacist: uses prnTaking Adderall XR 20 MG Capsule Extended Release 24 Hour 1 capsule in the morning Orally Once a day Taking Kyleena 19.5 MG Intrauterine Device as directed Intrauterine Taking Sertraline HCl 100 MG Tablet 1 tablet Orally Once a day Medication List reviewed and reconciled with the patient * Allergies:?N.K.D.A.no[Allerg ies Verified] Objective: * Vitals:?Ht: 64 in, Wt:122lbs , BMI:20.94Index, BP:116/68mm Hg, Temp:98.0F. * Examination: ???General Examination: ?GENERAL APPEARANCE:?in no acute distress,well developed, well nourished,vehicle modification technician present in room.?HEAD:?normocephalic, atraumatic.?NECK/THYROID:?neck supple, full [...] (general) (routine) without abnormal findings - Z01.419 (Primary)???2.?High risk heterosexual behavior - Z72.51???3.?Abdominal distension (gaseous) - R14.0??? Plan: * Treatment: 2.?High risk heterosexual be havior?LAB: Chlamydia/GC Amplification-[id number] 3.?Abdominal distension (gaseous)?Imaging: ULTRASOUND: PELVIC W/TRANSVAGINAL * Procedure Codes:? * Preventive Medicine:?[email or web address] with a Tweet/ ?~~~~~~~~~~~~~~~~~~~~~~~~~~~ How do I prepare for a pelvic ultrasound? ~~~~~~~~~~~~~~~~~~~~~~~~~~~ EAT/DRINK : Drink a minimum of 24 ounces of clear fluid at least one hour before your appointment. Do not empty your bladder until after the exam. Generally, no fasting or sedation is required for a pelvic ultrasound, unless the ultrasound is part of another procedure that requires anesthesia. For a transvaginal ultrasound, you should empty your bladder right before the procedure. Your doctor will explain the procedure to you and offer you the opportunity to ask any questions that you might have about the procedure. Based on your medical condition, your doctor may request other specific preparation. ~~~~~~~~~~~~~~~~~~~~~~~~~~~ What happens during a pelvic ultrasound? ~~~~~~~~~~~~~~~~~~~~~~~~~~~ A pelvic ultrasound may be performed in your doctor's office, on an outpatient basis, or as part of your stay in a hospital. Procedures may vary depending on your condition and your hospital's practices. Generally, a pelvic ultrasound follows this process: ~~~~~~~~~~~~~~~~~~~~~ For a transabdominal ultrasound ~~~~~~~~~~~~~~~~~~~~~ You will be asked to remove any clothing, jewelry, or other objects that may interfere with the scan. If asked to remove clothing, you will be given a gown to wear. You will lie on your back on an examination table. A gel-like substance will be applied to your abdomen. The transducer will be pressed against the skin and moved around over the area being studied. If blood flow is being assessed, you may hear a whoosh, whoosh sound when the Doppler probe is used. Images of structures will be displayed on the computer screen. Images will be recorded on various media for the health care record. Once the procedure has been completed, the gel will be removed. You may empty your bladder when the procedure is completed. ~~~~~~~~~~~~~~~~~~~ For a transvaginal ultrasound ~~~~~~~~~~~~~~~~~~~ You will be asked to remove any clothing, jewelry, or other objects that may interfere with the scan. If asked to remove clothing, you will be given a gown to wear. You will lie on an examination table, with your feet and legs supported as for a pelvic examination. A long, thin transvaginal transducer will be covered with a plastic or latex sheath and lubricated. The tip of the transducer will be inserted into your vagina. This may be slightly uncomfortable. The transducer will be gently turned and angled to bring the areas for study into focus. You may feel mild pressure as the transducer is moved. If blood flow is being assessed, you may hear a whoosh, whoosh sound when the Doppler probe is used. Images of organs and structures will be displayed on the computer screen. Images may be recorded on various media for the health care record. Once the procedure has been completed, the transducer will be removed. ~~~~~~~~~~~~~~~~~~~~~~~~~~ What happens after a pelvic ultrasound? ~~~~~~~~~~~~~~~~~~~~~~~~~~ There is no special type of care required after a pelvic ultrasound. You may resume your normal diet and activity unless your doctor advises you differently. There are no confirmed adverse biological effects on patients or instrument operators caused by exposures to ultrasound at the intensity levels used in a diagnostic ultrasound. Your doctor may give you additional or alternate instructions after the procedure, depending on your particular situation. * Follow Up:?1 Year (Reason: Y early Tire Retreader Exam) * Images: Billing Information: * Visit Code:? 61332 Preventive Care Est Pt. Age 18-39. * Procedure Codes:? 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 She has been in state of good health since her last exam. She has the following concerns: she reports a near 50 lb weight loss in the last year without trying. She is working with her PCP, who feels it is due to her Adderall, so she has stopped using that. She reports no unusual symptoms other than early satiety, and bloating. She reports that her PCP wouldn't refer her to GI. She has received the [employer] Covid-19 vaccine. Relationship status: partnered for 4 years, engaged since 12/19/24. No date set yet. She is sexually active. Sexual partner(s): male. She does not wish to have STI testing. She accepts CDC-recommended GC/CT screening. Menses: irregular, sometimes twice monthly, lasting anywhere from 3-7 days, sometimes heavy, sometimes moderate. She reports some random spotting on occasion. Contraception: Kyleena IUD, inserted in 09/2021. The patient has never had an abnormal pap smear. The most recent pap smear was 11/29/23 - NIL. Next due for pap in 2026. The patient does not exercise. She walks daily, about 10 minutes with her dogs. Examination Category Sub-Category Detail Notes Category Not es General Examination GENERAL APPEARANCE: in no ac neha distress, well developed, well nourished, vehicle modification technician present in room HEAD: normocephalic, atrau [...]
--- OUTSIDE RECORDS SUMMARY | 2025-03-05 09:51 | XMS_ITS ---
Author Organization [facility], [facility] Address [address] [place], [place] [phone] Care Team Providers Care Industrial Cafeteria Manager Name Role Phone ISIAH SIMENTAL Primary Care Provider [phone] Kinsey Ortiz Unavailable [phone] REASON FOR VISIT School letter SOCIAL HISTORY Sex Assigned At : Social History Observation Description Sex Assigned At Female Encounters Encounter Location Date Provider Diagnosis [facility], [facility] [address] [place], [place] [phone] 06/09/2024 Kinsey Ortiz PLAN OF TREATMENT No Information Progress Notes * MARCY MCINTOSHOB:2000 (23 yo F)Acc No.[id number]:06/09/2024 Patient:??EULOGIO MCINTOSH :2000?Age:23 Y?Sex:Fe male Phone: Address:[address] [place] [address] * true * Date:??
--- OUTSIDE RECORDS SUMMARY | 2025-03-05 09:52 | XMS_ITS | Patient Health Record ---
Author Organization [facility] Address [address] [place] [address] Care Team Providers Care Wad Lubricator Name Role Phone MIKE DUNNE Unavailable [phone] Allergies No Known Allergies Results Component Value Reference Range Notes PDF Report Reviewed date:02/08/2025 08:47:21 AM Interpretation: Performing Lab:[facility], [address], [place], Phone - [phone], [facility] Notes/Report: Clinical Information:CERVIX Chlamydia/GC Amplification Reviewed date:02/08/2025 08:24:05 AM Interpretation: Performing Lab:[facility], [address], [address], [place], Phone - [phone], [facility] Notes/Report: Clinical Information:CERVIX Chlamydia trachomatis, SG Negative Negative Neisseria gonorrhoeae, SG Negative Negative Reason For Referral No Information Medications Medication [...] Status Risk Notes Problem Abnormal uterine bleeding (86241703322684) Abnormal uterine and vaginal bleeding, unspecified (N93.9) Active confirmed Problem Attention deficit hyperactivity disorder, predominantly inattentive type (disorder) (77481599) Attention and concentration deficit (R41.840) Active confirmed Problem High risk heterosexual behavior (784625867642502) High risk heterosexual behavior (Z72.51) Active confirmed Problem Intrauterine contraceptive device in situ (finding) (206726331) Presence of (intrauterine) contraceptive device (Z97.5) Active confirmed Problem Body mass index 35.00 to 39.99 (563957686352342) Body mass index [BMI] 38.0-38.9, adult (Z68.38) Active confirmed Vital Signs Temperature 98.0 degrees Fahrenheit 02/04/2025 Blood pressure diastolic 68 mm Hg 02/04/2025 Height 64 in 02/04/2025 Blood pressure systolic 116 mm Hg 02/04/2025 Weight 122 lbs 02/04/2025 BMI 20.94 kg/m2 02/04/2025 Encounters Encounter Location Date Provider Diagnosis [address] [place] [address] 02/04/2025 MIKE DUNNE Encounter for gynecological examination [...] (gaseous) (ICD-10 - R14.0) Plan Of Treatment Pending Test Test Name Order Date Test, Urine 09/20/2021 CHLAMYDIA GC AMP PROBE 01/12/2022 ULTRASOUND: PELVIC W/TRANSVAGINAL 2021 ULTRASOUND: PELVIC W/TRANSVAGINAL 2024 Chlamydia/GC Amplification-[id number] 2024 Next Appt Details Provider Name:MIKE Morataya, 03/12/2025 01:00:00 PM, [address], [address], [place], [address], Provider Name:MIKE Morataya, 02/10/2026 10:00:00 AM, [address], [address], [place], [address], Insurance Providers Payer Name Payer Address Payer Phone Subscriber Number Group Number Insured Name Patient Relationship to Insured Coverage Start Date Coverage End Date [employer] [place] [address] [place] [address] [phone] [id number] DANNIE MCINTOSH Child - Insured has Financial Responsibility Medical (General) History Medical History History ICD Code Attention and concentration deficit R41. 840 Anxiety disorder, unspecified F41.9 Major depressive disorder, recurrent sev ere without psychotic features F33.2 Surgical History Surgery Date(Month/Year)
--- OUTSIDE RECORDS SUMMARY | 2025-03-05 09:52 | XMS_ITS ---
Author Organization [facility] Address [address] [address] Care Team Providers Care Branch Manager Name Role Phone MIKE DUNNE Unavailable [phone] REASON FOR VISIT Annual SOAP TENDER Physical Problems Problem Type SNOMED Code ICD Code Onset Dates Problem Status W/U Status Risk Notes Problem Intrauterine contraceptive device in situ (finding) (534593167) Presence of (intrauterine) contraceptive device (Z97.5) Active confirmed Problem High risk heterosexual behavior (015862246245747) High risk heterosexual behavior (Z72.51) Active confirmed Encounters Encounter Location Date Provider Diagnosis [facility] [address] [address] 12/31/2024 MIKE DUNNE Encounter for gynecological examination [...] Presence of (intrauterine) c ontraceptive device Continue Suhasena until 09/2026 Next Appt Details Follow Up: 1 Year, Reason: Y early Automotive Drivability Technician Exam Provider Name:MIKE ISLAS Rafia, 03/12/2025 01:00:00 PM, [email or web address], [address], [place], [address], Provider Name:MIKE Morataya, 02/10/2026 10:00:00 AM, [email or web address], [address], [place], [address], Progress Notes * MARCY MCINTOSHOB:2000 (24 yo F)Acc No.[id number]:12/31/2024 PROGRESS NOTES Patient:?EULOGIO MCINTOSH Provider:?MIKE DUNNE MD :2000???Age:24 Y???Sex:Female D ate:12/31/2024 Address:[address] [place], [place] [phone] Subjective: * Chief Complaints: * ???1. Annual SOAP TENDER Physical. 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 ? She has been in state of good health since her last exam. She has the following concerns: none* ? She has received the [email or web address] Covid-19 vaccine. ? Relationship status: *partnered for [...] by doing Pilates at home. * ROS:?Annual Automotive Drivability Technician Exam ROS:?Bowel habit changes?denies.?Bladder symptoms?denies.?Vaginal discharge, unusual?denies.?Vaginal itch or odor?denies.?weight or appetite changes?denies.?Chest pains, SOB?denies.?depression?denies.?Breast:?Denies?Breast lump.?Denies?Nipple discharge.?Hematology:?Denies?Swollen glands.?Skin:?Patient denies?changing moles.?Psychiatric:?Denies?Anxiety.? * Medical History:? Objective: * Vitals:? * Examination: ???General Examination: ?GENERAL APPEARANCE:?in no acute distress,well developed, well nourished,manager outpatient present in room.?HEAD:?normocephalic, atraumatic.?NECK/THYROID:?neck supple, full range [...] * Follow Up:?1 Year (Reason: Y early Automotive Drivability Technician Exam) * Images: Billing Information: * Visit Code:? 13388 Preventive Care Est Pt. Age 18-39. * Procedure Codes:? 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 She has been in state of good health since her last exam. She has the following concerns: none* She has received the [email or web address] Covid-19 vaccine. Relationship status: *partnered for 4 [...] ac neha distress, well developed, well nourished, manager outpatient present in room HEAD: normocephalic, atrau matic [...]
== END 2025-03-05 09:41 | disposition home or self-care (01) ==
LOC: HO.HMCFM 09:13
PROVIDERS: PCP Nurse Practitioner Family; Visit Provider Nurse Practitioner Family
DX: R63.4 Abnormal weight loss (principal); F90.9 Attention-deficit hyperactivity disorder, unspecified type

== ENCOUNTER → 2025-03-05 09:13 | Outpatient (BNVA) | payer BC, SELFPAY | PROVIDERS: PCP Nurse Practitioner Family; Visit Provider Nurse Practitioner Family | DX: Z13.89 Encounter for screening for other disorder (principal) ==

== ENCOUNTER 2025-04-13 12:27 | Outpatient (AMB) | payer BC, SELFPAY ==
--- NOTE | 2025-04-13 12:30 | MHC.PC.OV ---
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: No Is last menstrual period known: Yes Last menstrual period: 04/09/25 Post menopausal: No Patient : No Allergies No Known Allergies Allergy (Verified 04/13/25 12:41) Medication List - Last Reconciled 04/13/25 by Emre Decker CNP alprazolam 0.5 mg PO DAILY PRN lisdexamfetamine (Vyvanse) 20 mg PO QAM 28 days sertraline 50 mg PO DAILY Tobacco use date assessed: 04/13/25 Dental Screening Dental Screen Date: 04/13/25 Did you have a dental visit in the last 12 months?: Yes Did you have a dental problem in the last 6 months where you did not have access to dental care?: No Was dental information given to patient?: Patient has dentist HPI HPI Comments History of Present Illness Details 24-year-old female presents for an extended physical exam. She admits to taking her medications as prescribed without adverse reactions. He notes difficulty concentrating since her Adderall was changed to vyvanse d/t weight loss about 2 months ago. She requests a dose increase. She notes that her anxiety and depressive symptoms are generally well controlled. Acute issue(s) - None Past Medical History - Astigmatism, myopia, ADHD, anxiety, depression Social History - Nonsmoker. Does not vape. Drinks a glass of wine occasionally. Denies recreational drug use - Has been making healthy dietary choices. Exercises routinely. Generally sleep well Health maintenance - Last eye exam was with [facility] in [place]. Record not currently available. She will sign a release for her PCP to obtain her ophthalmology record - Last dental visit was was in 3 months ago - Last Tdap was in 06/2024 - She notes that she is up-to-date on the flu vaccine - Last pap smear test was [facility] in 12/2024: Normal. Record not currently available. 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 [facility] Medical History ADHD Depression Anxiety Postural orthostatic tachycardia syndrome [POTS] IBS (irritable bowel syndrome) Surgical History History of surgical removal of ganglion cyst Family History Mother FH: mental illness Paternal Grandmother Asthma Father High blood pressure High cholesterol Cardiovascular disease Maternal Grandmother High blood pressure Diabetes Cardiovascular disease Maternal Grandfather Clotting disorder Social History Housing: House Patient Tobacco Use Status: Never used Tobacco e-Cigarette/Vaping Use: Never Used Second Hand Smoke Exposure: No service: No Current occupational status: student Current occupational exposures/hazards: No Cognitive needs: No Hearing needs: No Vision needs: No Female Reproductive History Menstrual Date of last menstrual period: 04/09/25 Questionnaire PHQ-9 Over the last 2 weeks, how often have you been bothered by any of the following problems? 1. Little interest or pleasure in doing things: not at all 2. Feeling down, depressed, or hopeless: not at all 3. Trouble falling or staying asleep, or sleeping too much: more than half the days 4. Feeling tired or having little energy: more than half the days 5. Poor appetite or overeating: several days 6. Feeling bad about yourself - or that you are a failure or have let yourself or your family down: not at all 7. Trouble concentrating on things, such as reading the newspaper or watching television: more than half the days 8. Moving or speaking so slowly that other people could have noticed. Or the opposite - being so fidgety or restless that you have been moving around a lot more than usual: several days 9. Thoughts that you would be better off or of hurting yourself in some way: not at all Total score: 8 Depression Screening Interpretation: Positive Depression Screening Follow-up: Existing condition and In treatment Depression Screening Done: Yes 34831 - PHQ-9 Billing: Yes Source: Developed by Drs. Jack Vásquez, Michelle Ventura, Clayton George and colleagues, with an educational eleonora from [employer]. Thrive Questionnaire Date Thrive assessed: 04/13/25 I am a: Patient What is your living situation today?: I have a steady place to live Within the past 12 months, did the food you bought not last and you didn't have the money to get more?: Never true Within the past 12 months, did you worry whether your food would run out before you got money to buy more?: Never true Do you have trouble paying for medicines?: No Do you have trouble getting transportation to medical appointments?: No Do you have trouble paying your heating and electricity bill?: No Do you have trouble taking care of your child, family member or friend?: No Do you have trouble with day-to-day activities such as bathing, preparing meals, shopping, managing finances, etc.?: No Are you currently unemployed and looking for a job?: No Are you interested in more education?: No Please select the resources that you would like help with: None Currently or been in a relationship where the following occur: No concerns reported THRIVE Score: 0 AUDIT C Alcohol Use Questionnaire (AUDIT-C) 1. How often do you have a drink containing alcohol?: Monthly or less 2. How many drinks containing alcohol do you have on a typical day when you are drinking?: 1 or 2 3. How often do you have six or more drinks on one occasion?: Less than monthly Total Score: 2 Score Reviewed/Action Taken: Yes PAUL-7 AMB Questionnaire PAUL-7 Date PAUL - 7 assessed: 04/13/25 Feeling nervous, anxious, or on edge: 1 = Several days Not being able to stop or control worryin = Several days Worrying too much about different things: 1 = Several days Trouble relaxin = More than half the days Being so restless that it is hard to sit still: 2 = More than half the days Becoming easily annoyed or irritable: 1 = Several days Feeling afraid as if something awful might happen: 0 = Not at all Total PAUL-7 score (0-4 normal; 5-9 mild; 10-14 moderate; 15-21 severe): 8 Source: Developed by Drs. Jack Vásquez, Michelle Ventura, Clayton George and colleagues, with an educational eleonora from [employer]. PAUL-7 Assessment Billing PAUL-7 Assessment Tool: PAUL-7 Assessment 94164 Review of Systems Const Details: Denies chills, Denies fatigue, Denies fever(s), Denies headache(s) and Denies weakness HEENT Denies change in vision, Denies dizziness, Denies headache(s), Denies hearing loss, Denies nasal congestion, Denies sinus pain, Denies sinus pressure and Denies sore throat Card Denies chest pain, Denies lightheadedness, Denies dyspnea and Denies other (palpitations) Resp Denies cough, Denies dyspnea and Denies wheezing GI Denies abdominal pain, Denies melena, Denies hematochezia, Denies change in bowel habits, Denies dyspepsia and Denies nausea Denies hematuria and Denies dysuria Musc Denies abnormal gait, Denies myalgias, Denies arthralgias, Denies numbness and Denies tingling Skin/Breast Denies rash, Denies unusual bruising and Denies wounds Neuro Denies abnormal gait, Denies dizziness, Denies headache(s), Denies memory loss, Denies numbness, Denies Sensory deficit (Neuro), Denies tingling and Denies weakness Psych Denies anxiety, Denies depression and Denies memory loss Endo Denies cold intolerance, Denies fatigue, Denies heat intolerance, Denies polydipsia and Denies polyuria Anthony/Lymph Denies easy bleeding and Denies easy bruising Aller/Immun Denies wheezing Physical exam (Primary Care) Vital Signs: Last Vital Signs Temp 98.4 F 04/13/25 12:34 Pulse 71 04/13/25 12:34 Resp 16 04/13/25 12:34 BP 111/65 04/13/25 12:34 Pulse Ox 100 04/13/25 12:34 Oxygen Delivery Method Room Air 04/13/25 12:34 BMI result Body Mass Index 23.2 Tobacco/Smoking Status: Tobacco use Status Tobacco use date assessed 03/05/25 04/13/25 12:31 Patient Tobacco Use Status Never used Tobacco 04/13/25 12:31 e-Cigarette/Vaping Use Never Used 04/13/25 12:31 Depression Screening Interpretation: Positive Depression Screening Follow-up: Existing condition and In treatment Thrive Assessment: Date of Thrive Assessment Date Thrive assessed 12/24/24 04/13/25 12:31 Currently or been in a relationship where the following occur: No concerns reported Const Other: General: no acute distress, well developed, alert and awake Nutritional Appearance: well nourished Orientation/consciousness: patient oriented x3 [facility] Head: Yes normocephalic and Yes atraumatic Ears: hearing grossly normal bilaterally and TM's normal bilaterally General nose exam: Normal external nose present and Normal nares present Mouth: Normal oral and palatal mucosa present and moist mucous membranes Teeth and gingiva: dentition normal Throat: Yes oropharynx normal Eyes Pupils: Equal, round and reactive pupils present and Pupil accommodation reflex normal EOM: EOMs intact bilaterally Neck Neck: Yes normal visual inspection, Yes no lymphadenopathy and Yes trachea midline Thyroid: Thyroid normal Carotids: no bruits Lymphatic: no lymphadenopathy noted Chest Chest palpation & inspection: normal inspection of the chest Resp Effort & Inspection: normal respiratory effort Auscultation: clear to auscultation bilaterally Cardio Rate: regular rate Rhythm: regular rhythm Heart sounds: S1 normal heart sound present, S2 normal heart sound present, no gallops, no murmurs and no rubs Bruits: no abdominal aortic bruits and no carotid bruits GI Palpation (GI): No Abdominal aortic bruit present, Soft to palpation, nontender, No hepatosplenomegaly present and No Rebound tenderness present Auscultation: normal bowel sounds General: Yes no CVA tenderness Back/Spine/Pelvis Back: no CVA tenderness Cervical Spine: cervical ROM normal and No Cervical spine tenderness Thoracic/Lumbar Spine: thoraco-lumbar ROM normal, No pain with thoraco-lumbar ROM, No thoracic spinal tenderness and No lumbar spinal tenderness Skin General: warm and dry. Normal skin color. Normal skin turgor Lesions: no lesions Rashes: no rashes Trauma: no lacerations or abrasions Wounds: no wounds Nails: normal Neuro General: patient oriented x3, gait normal and CN's II-XI intact bilaterally Cranial nerves: Yes Equal, round and reactive pupils present Cognition (Neuro): normal cognition Gait exam (Neuro): Normal gait present Motor exam (neuro): 5/5 motor strength present throughout Sensory Exam: No Sensory deficit (Neuro) Deep tendon reflexes (DTR's): Right patellar reflex intensity grade: 2+ and Left patellar reflex intensity grade: 2+ Extrem General: Yes normal to inspection, No edema and No calf tenderness Psych Appearance: grossly normal Affect: normal affect Attitude: cooperative Thought process: Normal thought process present Coding Level of Care Code Est Pt Level 3 (65411) Est Pt Prev Care 18-39y(47619) Diagnoses Normal physical examination, routine Z00.00 Anxiety F41.9 Depression F32.A ADHD F90.9 Weight loss, unintentional R63.4 Additional Codes PAUL-7 Assessment Billing - PAUL-7 Assessment Tool: PAUL-7 Assessment 92408 ([id number]) PHQ-9 - 38951 - PHQ-9 Billing: Yes ([id number]) Assessment & Plan Assessment & Plan (1) Normal physical examination, routine: Code(s): Z00.00 - Encounter for general adult medical examination without abnormal findings Category: Medical Plan: No significant functional limitations noted. Continue current treatment regimen. Healthy diet and routine exercise encouraged. Follow-up in 3 months for ADHD, anxiety, and depression. Return sooner with symptoms or concerns. Verbalized understanding and agreed with the treatment plan. (2) Anxiety: Code(s): F41.9 - Anxiety disorder, unspecified Category: Medical Plan: She notes that her anxiety and depressive symptoms are generally well controlled. PAUL-7 and PHQ-9 scores revealed mild anxiety and depression. Continue to take sertraline as prescribed. Routine exercise encouraged. Follow-up in 3 months or sooner with symptoms or concerns. Verbalized understanding and agreed with the treatment plan. (3) Depression: Code(s): F32.A - Depression, unspecified Category: Medical Plan: Plan as above. (4) ADHD: Code(s): F90.9 - Attention-deficit hyperactivity disorder, unspecified type Category: Medical Plan: He notes difficulty concentrating since her Adderall was changed to vyvanse d/t weight loss about 2 months ago. She requests a dose increase. Vyvanse increased to 30 mg daily. Advised to take as prescribed. Follow-up in 3 months or sooner with symptoms or concerns. Verbalized understanding and agreed with the treatment plan. (5) Weight loss, unintentional: Code(s): R63.4 - Abnormal weight loss Category: Medical Plan: This was related to chronic Adderall use. She has gained 9 lb since Adderall was changed to Vyvanse about 2 months ago. Continue current treatment regimen. Follow-up as needed. Verbalized understanding and agreed with the plan. Medications: New lisdexamfetamine (Vyvanse) Partial Fill upon patient request. 30 mg PO QAM 28 days 28 caps 0RF F90.9 - Attention-deficit hyperactivity disorder, unspecified type Discontinued lisdexamfetamine (Vyvanse) Partial Fill upon patient request. Discontinued Reason: Doctor's Order 20 mg PO QAM 28 days 28 caps 0RF
[2025-04-13 12:34] VITALS: BP 111/65; PULSE 71; RESP 16; TEMP 36.9; O2SAT 100; BMI 23.2
== END 2025-04-13 13:01 | disposition home or self-care (01) ==
LOC: HO.HMCFM 12:28
PROVIDERS: PCP Nurse Practitioner Family; Visit Provider Nurse Practitioner Family
DX: Z00.00 Encounter for general adult medical examination without abnormal findings (principal); F41.9 Anxiety disorder, unspecified; F32.A Depression, unspecified; F90.9 Attention-deficit hyperactivity disorder, unspecified type; R63.4 Abnormal weight loss

== ENCOUNTER → 2025-04-13 12:27 | Outpatient (BNVA) | payer BC, SELFPAY | PROVIDERS: PCP Nurse Practitioner Family; Visit Provider Nurse Practitioner Family | DX: Z00.00 Encounter for general adult medical examination without abnormal findings (principal); F32.A Depression, unspecified; F41.9 Anxiety disorder, unspecified; F90.9 Attention-deficit hyperactivity disorder, unspecified type; R63.4 Abnormal weight loss; Z68.23 Body mass index [BMI] 23.0-23.9, adult | CPT/HCPCS: 96127 ==

== ENCOUNTER 2025-08-02 15:05 | Outpatient (AMB) | payer BC, SELFPAY ==
--- OUTSIDE RECORDS SUMMARY | 2024-12-04 11:00 | XMS_ITS ---
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 Physical Encounters Encounter Location Date Provider Diagnosis [facility] [address] [facility] [address] [place] [address] 12/04/2024 MIKE DUNNE Encounter for gynecological examination (general) (routine) without abnormal findings Z01.419 ; Encounter for screening for infections with a predominantly sexual mode of transmission Z11.3 and Presence of (intrauterine) contraceptive device Z97.5 Assessments Encounter Date Diagnosis (ICD Code) Assessment Notes Treatment Notes Treatment Clinical Notes Section Notes 12/04/2024 Encounter for gynecological examination (general) (routine) without abnormal findings (ICD-10 - Z01.419) Discussed cervical cancer screening with cytology every 3 years as per ASCCP guidelines. Advised continued annual pelvic exams. Patient encouraged to increase her level of exercise. SBE technique encouraged/tau ght. Safe sexual practices and STI prevention discussed. 12/04/2024 Encounter for screening for infections with a predominantly sexual mode of transmission (ICD-10 - Z11.3) 12/04/2024 Presence of (intrauterine) contraceptive device (ICD-10 - Z97.5) Continue Kyleena until 09/2026 or desires conception Plan Of Treatment Treatment Notes Assessment Notes Encounter for gynecological examination (general) (routine) without abnormal findings Discussed cervical cancer screening with cytology every 3 years as per ASCCP guidelines. Advised continued annual pelvic exams. Patient encouraged to increase her level of exercise. SBE technique encouraged/taught. Safe sexual practices and STI prevention discussed. Presence of (intrauterine) c ontraceptive device Continue Kyleena until 09/2026 or desire s conception Next Appt Details Follow Up: 1 Year, Reason: Y early News Correspondent Exam Provider Name:MIKE ISLAS Rafia, 02/10/2026 10:00:00 AM, [address], [address], [place], [address], Progress Notes * MARCY MCINTOSHOB:2000 (24 yo F)Acc No.[id number]:12/04/2024 PROGRESS NOTES Patient: EULOGIO REYES Provider: Elzbieta DUNNE MD :2000 A ge:23 Y S ex:Female Date:12/04/2024 Address:[address] [place], [place] [id number] Subjective: * Chief Complaints: * 1 . 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 She has been in state of good health since her last exam. She has the following concerns: none* She has received the [employer] Covid-19 vaccine. Relationship status: *partnered for 4 years. She is sexually active. Sexual partner(s): male. She does not wish to have STI testing. She accepts CDC- recommended GC/CT screening. Menses: *every 1-2 months, lasting about a week, intermittent flow. Contraception: Kyleena IUD, inserted in 09/2021. The patient has never had an abnormal pap smear. The most recent pap smear was 11/29/23 - NIL. Next due for pap in 2026. The patient does* exercise. She exercises x 2-3 days/week by doing Pilates at home. * ROS: A nnual News Correspondent Exam ROS: Bowel habit changes d enies. B ladder symptoms d enies. V aginal discharge, unusual d enies. V aginal itch or odor d enies. w eight or appetite changes d enies. C hest pains, SOB d enies. d epression d enies.? B reast: Denies B reast lump. D enies N ipple discharge.? H ematology: Denies S wollen glands. S kin: Patient denies c hanging moles. P sychiatric: Denies A nxiety. * Medical History: Objective: * Vitals: * Examination: G eneral Examination: GENERAL APPEARANCE: i n no acute distress,well developed, well nourished,stock raiser present in room. HEAD: n ormocephalic, atraumatic. NECK/THYROID: n lesia supple, full range of motion,thyroid normal. LYMPH NODES: n o axillary or supraclavicular adenopathy.? SKIN: n ormal,good turgor,no rashes,no suspicious lesions.? BREASTS: n ormal,no dimpling,no discharge,no drainage,no masses palpable bilaterally,nontender. ABDOMEN: s oft, non-tender, non distended without masses or hepatosplenomegay. BACK: n o costovertebral angle tenderness. FEMALE GENITOURINARY: V ulva without lesions or masses, vagina pink without abnormal discharge, lesions or masses, cervix appears normal and is not tender to palpation, IUD threads seen, uterus is normal size, mobile, nontender and anteverted, ovaries are not palpable. NEUROLOGIC: a lert and oriented,gait normal. PSYCH: a lert, oriented,cognitive function intact,cooperative with exam,good eye contact,mood/affect full range,speech clear. Assessment: * Assessment: 1. E ncounter for screening for infections with a predominantly sexual mode of transmission - Z11.3 2 . E ncounter for gynecological examination (general) (routine) without abnormal findings - Z01.419 (Primary) 3 . P resence of (intrauterine) contraceptive device - Z97.5 Plan: * Treatment: 2. P resence of (intrauterine) contraceptive device Notes: Continue Kyleena until 09/2026 or desires conception * Follow Up: 1 Year (Reason: Yearly News Correspondent Exam) * Images: Billing Information: * Visit Code: 77717 Preventive Care Est Pt. Age 18-39. 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 She has been in state of good health since her last exam. She has the following concerns: none* She has received the [employer] Covid-19 vaccine. Relationship status: *partnered for 4 years. She is sexually active. Sexual partner(s): male. She does not wish to have STI testing. She accepts CDC-recommended GC/CT screening. Menses: *every 1-2 months, lasting about a week, intermittent flow. Contraception: Kyleena IUD, inserted in 09/2021. The patient has never had an abnormal pap smear. The most recent pap smear was 11/29/23 - NIL. Next due for pap in 2026. The patient does* exercise. She exercises x 2-3 days/week by doing Pilates at home. Examination Category Sub-Category Detail Notes Category Not es General Examination GENERAL APPEARANCE: in no ac neha distress, well developed, well nourished, stock raiser present in room HEAD: normocephalic, atrau matic NECK/THYROID: neck supple, full ra nge of motion, thyroid normal ABDOMEN: soft, non-tender, no n distended without masses or hepatosplenomegay NEUROLOGIC: alert and oriented, gait normal SKIN: normal, good turgor, no rashes, no suspicious lesions BACK: no costovertebral an gle tenderness BREASTS: normal, no dimpling, no discharge, no drainage, no masses palpable bilaterally, nontender LYMPH NODES: no axillary or supra clavicular adenopathy PSYCH: alert, oriented, cog nitive function intact, cooperative with exam, good eye contact, mood/affect full range, speech clear FEMALE GENITOURINARY: Vulva without lesi ons or masses, vagina pink without abnormal discharge, lesions or masses, cervix appears normal and is not tender to palpation, IUD threads seen, uterus is normal size, mobile, nontender and anteverted, ovaries are not palpable
--- OUTSIDE RECORDS SUMMARY | 2024-12-31 05:00 | XMS_ITS ---
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 Physical Problems Problem Type SNOMED Code ICD Code Onset Dates Problem Status W/U Status Risk Notes Problem Intrauterine contraceptive device in situ (finding) (672707530) Presence of (intrauterine) contraceptive device (Z97.5) Active confirmed Problem High risk heterosexual behavior (380134245811327) High risk heterosexual behavior (Z72.51) Active confirmed Encounters Encounter Location Date Provider Diagnosis [facility] [address] [address] 12/31/2024 MIKE DUNNE Encounter for gynecological examination (general) (routine) without abnormal findings Z01.419 ; Presence of (intrauterine) contraceptive device Z97.5 and High risk heterosexual behavior Z72.51 Assessments Encounter Date Diagnosis (ICD Code) Assessment Notes Treatment Notes Treatment Clinical Notes Section Notes 12/31/2024 Encounter for gynecological examination (general) (routine) without abnormal findings (ICD-10 - Z01.419) Discussed cervical cancer screening with cytology every 3 years as per ASCCP guidelines. Advised continued annual pelvic exams. Patient encouraged to increase her level of exercise. SBE technique encouraged/tau ght. Safe sexual practices and STI prevention discussed. 12/31/2024 Presence of (intrauterine) contraceptive device (ICD-10 - Z97.5) Continue Kyleena until 09/202612/31/2024 High risk heterosexual behavior (ICD-10 - Z72.51) Plan Of Treatment Treatment Notes Assessment Notes Encounter for gynecological examination (general) (routine) without abnormal findings Discussed cervical cancer screening with cytology every 3 years as per ASCCP guidelines. Advised continued annual pelvic exams. Patient encouraged to increase her level of exercise. SBE technique encouraged/taught. Safe sexual practices and STI prevention discussed. Presence of (intrauterine) c ontraceptive device Continue Kyleena until 09/2026 Next Appt Details Follow Up: 1 Year, Reason: Y early Oracle Pl Sql Developer Exam Provider Name:MIKE Elzbieta Morataya, 02/10/2026 10:00:00 AM, [address], [address], [place], [address], Progress Notes * MARCY MCINTOSHOB:2000 (24 yo F)Acc No.[id number]:12/31/2024 PROGRESS NOTES Patient: EULOGIO REYES Provider: Elzbieta DUNNE MD :2000 A ge:24 Y S ex:Female Date:12/31/2024 Address:[address] [place], [place] [id number] Subjective: * Chief Complaints: * 1 . 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 She has been in state of good health since her last exam. She has the following concerns: none* She has received the Ouroboros Covid-19 vaccine. Relationship status: *partnered for 4 [...] Pilates at home. * ROS: A nnual Oracle Pl Sql Developer Exam ROS: Bowel habit changes d enies. [...] i n no acute distress,well developed, well nourished,noc engineer present in room. HEAD: n ormocephalic, atraumatic. [...] Assessment: * Assessment: 1. E ncounter for gynecological examination (general) (routine) without abnormal findings - Z01.419 (Primary) 2 . P resence of (intrauterine) contraceptive device - Z97.5 3 . H igh risk heterosexual behavior - Z72.51 Plan: * Treatment: 2. P resence of (intrauterine) contraceptive device Notes: Continue Kyleena until 09/2026 * Follow Up: 1 Year (Reason: Yearly Oracle Pl Sql Developer Exam) * Images: Billing Information: * Visit Code: 62302 Preventive Care Est Pt. Age 18-39. 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 She has been in state of good health since her last exam. She has the following concerns: none* She has received the Ouroboros Covid-19 vaccine. Relationship status: *partnered for 4 [...] General Examination GENERAL APPEARANCE: in no ac pechanga distress, well developed, well nourished, noc engineer present in room HEAD: normocephalic, atrau matic [...]
--- OUTSIDE RECORDS SUMMARY | 2025-03-12 09:00 | XMS_ITS ---
Author Organization [facility] Address [address] [facility] [address] [place] [address] Care Team Providers Care Psychotherapist Counselor Name Role Phone MIKE DUNNE Unavailable [phone] REASON FOR VISIT ULTRA - BLOATING Encounters Encounter Location Date Provider Diagnosis [facility] [address] [place] [address] 03/12/2025 MIKE DUNNE Plan Of Treatment Next Appt Details Provider Name:MIKE Morataya, 02/10/2026 10:00:00 AM, [address] [facility], [address], [place], [address], Progress Notes * MARCY MCINTOSHOB:2000 (24 yo F)Acc No.[id number]:03/12/2025 PROGRESS NOTES Patient: EULOGIO REYES Provider: Elzbieta DUNNE MD :2000 A ge:24 Y S ex:Female Date:03/12/2025 Address:[address] [place] [address] [place], [id number] Subjective: * Chief Complaints: * 1 . ULTRA - BLOATING. * Medical History: Objective: * Vitals: Assessment: Plan: * Treatment: * Images: Billing Information: * Visit Code: * Procedure Codes: * Electronic signature of MIKE DUNNE MD on 08/02/2025 at 05:13 PM EDT Sign off status: Pending * Provider: Elzbieta DUNNE MD Date: 0 03/12/2025 Generated for Nasreen bailey/Annita/Janayitting on: 0 08/02/2025 05:13 PM EDT
--- NOTE | 2025-08-02 15:14 | A.OFFPC_ITS ---
Vital Signs 08/02/25 15:19 Height 5 ft 4 in Weight 132 lb 6 oz BMI 22.7 BP 105/58 L Blood Pressure Location Rt brachial Position Sitting Respiration 16 Pulse 76 Pulse Source Pulse Oximeter Temp 98.0 F Temp Source Oral Pulse Oximetry (%) 98 Oxygen Delivery Method Room Air Intake Visit Reasons: 3 mos AHDH, anxiety, depression Intake Note: patient here for 3 month follow up for ADHD and anxiety and depression Test Architect Required: No Is last menstrual period known: Yes Last menstrual period: 07/27/25 Post menopausal: No Patient : No Allergies No Known Allergies Allergy (Verified 08/02/25 15:32) Medication List - Last Reconciled 08/02/25 by Emre Decker CNP alprazolam 0.5 mg PO DAILY PRN lisdexamfetamine (Vyvanse) 30 mg PO QAM 28 days sertraline 50 mg PO DAILY Tobacco use date assessed: 08/02/25 Dental Screening Dental Screen Date: 08/02/25 Did you have a dental visit in the last 12 months?: Yes Did you have a dental problem in the last 6 months where you did not have access to dental care?: No Was dental information given to patient?: Patient has dentist HPI HPI Comments History of Present Illness Details 24-year-old female presents for ADHD, an xiety, and depression follow- up. She admits to taking her medications as prescribed without adverse reactions. She reports controlled ADHD, anxiety, depressive symptoms. Her weight has been stable since she switched to Vyvanse. She notes that she has been making healthy lifestyle changes. She offers no complaints and denies acute symptoms at this time. [facility] Medical History ADHD Depression Anxiety Postural orthostatic tachycardia syndrome [POTS] IBS (irritable bowel syndrome) Surgical History History of surgical removal of ganglion cyst Family History Mother FH: mental illness Paternal Grandmother Asthma Father High blood pressure High cholesterol Cardiovascular disease Maternal Grandmother High blood pressure Diabetes Cardiovascular disease Maternal Grandfather Clotting disorder Social History Housing: House Patient Tobacco Use Status: Never used Tobacco e-Cigarette/Vaping Use: Never Used Second Hand Smoke Exposure: No Patient : No service: No Current occupational status: student Current occupational exposures/hazards: No Cognitive needs: No Hearing needs: No Vision needs: No Female Reproductive History Menstrual Date of last menstrual period: 07/27/25 Questionnaire PHQ-9 Over the last 2 weeks, how often have you been bothered by any of the following problems? 1. Little interest or pleasure in doing things: several days 2. Feeling down, depressed, or hopeless: not at all 3. Trouble falling or staying asleep, or sleeping too much: not at all 4. Feeling tired or having little energy: several days 5. Poor appetite or overeating: several days 6. Feeling bad about yourself - or that you are a failure or have let yourself or your family down: not at all 7. Trouble concentrating on things, such as reading the newspaper or watching television: not at all 8. Moving or speaking so slowly that other people could have noticed. Or the opposite - being so fidgety or restless that you have been moving around a lot more than usual: not at all 9. Thoughts that you would be better off or of hurting yourself in some way: not at all Total score: 3 Depression Screening Interpretation: Negative Depression Screening Done: Yes 92346 - PHQ-9 Billing: Yes Source: Developed by Drs. Jack Vásquez, Michelle Ventura, Clayton George and colleagues, with an educational eleonora from [employer]. Thrive Questionnaire Date Thrive assessed: 12/24/24 I am a: Patient What is your living situation today?: I have a steady place to live Within the past 12 months, did the food you bought not last and you didn't have the money to get more?: Never true Within the past 12 months, did you worry whether your food would run out before you got money to buy more?: Never true Do you have trouble paying for medicines?: No Do you have trouble getting transportation to medical appointments?: No Do you have trouble paying your heating and electricity bill?: No Do you have trouble taking care of your child, family member or friend?: No Do you have trouble with day-to-day activities such as bathing, preparing meals, shopping, managing finances, etc.?: No Are you currently unemployed and looking for a job?: No Are you interested in more education?: No Please select the resources that you would like help with: None Currently or been in a relationship where the following occur: No concerns reported THRIVE Score: 0 PAUL-7 AMB Questionnaire PAUL-7 Date PAUL - 7 assessed: 08/02/25 Feeling nervous, anxious, or on edge: 1 = Several days Not being able to stop or control worryin = Several days Worrying too much about different things: 0 = Not at all Trouble relaxin = Several days Being so restless that it is hard to sit still: 0 = Not at all Becoming easily annoyed or irritable: 0 = Not at all Feeling afraid as if something awful might happen: 0 = Not at all Total PAUL-7 score (0-4 normal; 5-9 mild; 10-14 moderate; 15-21 severe): 3 Source: Developed by Drs. Jack Vásquez, Michelle Ventura, Clayton George and colleagues, with an educational eleonora from [employer]. PAUL-7 Assessment Billing PAUL-7 Assessment Tool: PAUL-7 Assessment 87655 Review of Systems Const Details: Const Denies chills, Denies fatigue, Denies fever(s), Denies headache(s) and Denies weakness ENT Denies dizziness and Denies headache(s) Card Denies chest pain, Denies lightheadedness, Denies dyspnea and Denies other (Palpitations) Resp Denies cough, Denies dyspnea, Denies wheezing and Denies other ( shortness of breath) GI Denies abdominal pain, Denies melena, Denies hematochezia, Denies change in bowel habits, Denies dyspepsia and Denies nausea Denies hematuria and Denies dysuria Musc Denies abnormal gait, Denies myalgias, Denies arthralgias, Denies numbness and Denies tingling Skin/Breast Denies rash, Denies unusual bruising and Denies wounds Neuro Denies abnormal gait, Denies dizziness, Denies headache(s), Denies memory loss, Denies numbness, Denies Sensory deficit (Neuro), Denies tingling and Denies weakness Psych Denies anxiety, Denies depression, Denies memory loss Endo Denies cold intolerance, Denies fatigue, Denies heat intolerance, Denies polydipsia and Denies polyuria Aller/Immun Denies wheezing Physical exam (Primary Care) Vital Signs: Last Vital Signs Temp 98.0 F 08/02/25 15:19 Pulse 76 08/02/25 15:19 Resp 16 08/02/25 15:19 BP 105/58 L 08/02/25 15:19 Pulse Ox 98 08/02/25 15:19 Oxygen Delivery Method Room Air 08/02/25 15:19 BMI result Body Mass Index 22.7 Tobacco/Smoking Status: Tobacco use Status Tobacco use date assessed 08/02/25 08/02/25 15:22 Patient Tobacco Use Status Never used Tobacco 08/02/25 15:17 e-Cigarette/Vaping Use Never Used 08/02/25 15:17 PHQ-9: PHQ-9 Score PHQ-9: Total score 3 08/02/25 15:23 Depression Screening Interpretation: Negative Thrive Assessment: Date of Thrive Assessment Date Thrive assessed 12/24/24 08/02/25 15:17 Currently or been in a relationship where the following occur: No concerns reported Const Other: General: no acute distress and well developed Nutritional Appearance: well nourished Orientation/consciousness: patient oriented x3 HENMT Head: Yes normocephalic and Yes atraumatic Eyes General: appearance normal, both eyes and all related structures Pupils: Equal, round and reactive pupils present EOM: EOMs intact bilaterally Resp Effort & Inspection: normal respiratory effort Auscultation: clear to auscultation bilaterally Cardio Rate: regular rate Rhythm: regular rhythm Heart sounds: S1 normal heart sound present, S2 normal heart sound present, no gallops, no murmurs and no rubs GI Palpation (GI): No Abdominal aortic bruit present, Soft to palpation, nontender, No hepatosplenomegaly present and No Rebound tenderness present Auscultation: normal bowel sounds General: Yes no CVA tenderness Back/Spine/Pelvis Back: no CVA tenderness Cervical Spine: cervical ROM normal and No Cervical spine tenderness Thoracic/Lumbar Spine: thoraco-lumbar ROM normal, No pain with thoraco-lumbar ROM, No thoracic spinal tenderness and No lumbar spinal tenderness Extrem General: Yes normal to inspection, No edema and No calf tenderness Skin General: warm and dry. Normal skin color. Normal skin turgor Neuro General: patient oriented x3, gait normal and no focal neuro deficit Cranial nerves: Yes Equal, round and reactive pupils present Cognition (Neuro): normal cognition Gait exam (Neuro): Normal gait present Sensory Exam: No Sensory deficit (Neuro) Psych Appearance: grossly normal Affect: normal affect Attitude: cooperative Thought process: Normal thought process present Coding Level of Care Code Est Pt Level 3 (16680) Diagnoses Anxiety F41.9 Depression F32.A ADHD F90.9 Additional Codes PAUL-7 Assessment Billing - PAUL-7 Assessment Tool: PAUL-7 Assessment 57956 ([id number]) PHQ-9 - 51250 - PHQ-9 Billing: Yes ([id number]) Assessment & Plan Assessment & Plan (1) Anxiety: Code(s): F41.9 - Anxiety disorder, unspecified Category: Medical Plan: She reports controlled ADHD, anxiety, depressive symptoms. Her weight has been stable since she switched to Vyvanse. PHQ-9 and PAUL-7 scores are normal. Continue current treatment regimen. Routine exercise encouraged. Follow-up in 3 months or sooner with symptoms or concerns. Verbalized understanding and agreed with the plan. (2) Depression: Code(s): F32.A - Depression, unspecified Category: Medical Plan: Plan as above. (3) ADHD: Code(s): F90.9 - Attention-deficit hyperactivity disorder, unspecified type Category: Medical Plan: Plan as above.
[2025-08-02 15:19] VITALS: BP 105/58; PULSE 76; RESP 16; TEMP 36.7; O2SAT 98; BMI 22.7
--- OUTSIDE RECORDS SUMMARY | 2025-08-02 17:13 | XMS_ITS | Clinical Summary ---
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
--- OUTSIDE RECORDS SUMMARY | 2025-08-02 17:13 | XMS_ITS | Encounter Summary ---
Author Organization [facility] Address [address] [place] [address] Phone Care Team Providers Care Personnel Technician Name Role Phone Provider, López JENKINS Primary Care Provider Encounter Details Date Type Department Care Team (Late st Contact Info) Description 03/23/2018 Conversion Encounter [facility] [address] [address] Violetta Sparks MD [address] [place] [id number] Social History Tobacco Use Types Packs/Day Years [...] on filedocumented in this encounter Care Teams Personnel Technician Relationship Specialty Start Date End Date Provider, MD López [address] [place] [address] PCP - General Pediatrics 11/12/22 08/31/24 documented as of this encounter
--- OUTSIDE RECORDS SUMMARY | 2025-08-02 17:13 | XMS_ITS | Patient Health Record ---
Author Organization [facility] Address [address] [place] [address] Care Team Providers Care Lifestyle Block Farmer Name Role Phone MIKE DUNNE Unavailable [phone] Allergies No Known Allergies Results Component Value Reference Range Notes Chlamydia/GC Amplification Reviewed date:02/08/2025 08:24:05 AM Interpretation: Performing Lab:[facility], [address], [address], [place], Phone - [phone], Director - [facility] Notes/Report: Clinical Information:CERVIX Chlamydia trachomatis, SG Negative Negative Neisseria gonorrhoeae, SG Negative Negative PDF Report Reviewed date:02/08/2025 08:47:21 AM Interpretation: Performing Lab:[facility], [address], [address], [place], Phone - [phone], Director - [facility] Notes/Report: Clinical Information:CERVIX Reason For Referral No Information Medications Medication SIG (Take, Route, Fr equency, Duration) Notes Start Date End Date Status Vyvanse 20 MG 1 capsule in the mor corrina Orally Once a day Active ALPRAZolam 0.5 MG 1 tablet Orally Twice a day uses prn Active Kyleena 19.5 MG as directed Intrauterine Active Sertraline HCl 50 MG 1 tablet Orally Onc e a day; Duration: 30 days Active Social History Tobacco Use: Social History [...] Status Risk Notes Problem Abnormal uterine bleeding (07424856201562) Abnormal uterine and vaginal bleeding, unspecified (N93.9) Active confirmed Problem Attention deficit hyperactivity disorder, predominantly inattentive type (disorder) (70020997) Attention and concentration deficit (R41.840) Active confirmed Problem High risk heterosexual behavior (157060640453064) High risk heterosexual behavior (Z72.51) Active confirmed Problem Intrauterine contraceptive device in situ (finding) (314261380) Presence of (intrauterine) contraceptive device (Z97.5) Active confirmed Problem Body mass index 35.00 to 39.99 (178359588648534) Body mass index [BMI] 38.0-38.9, adult (Z68.38) Active confirmed Vital Signs Temperature 98.2 degrees Fahrenheit 03/19/2025 Blood pressure diastolic 68 mm Hg 03/19/2025 Height 64 in 03/19/2025 Blood pressure systolic 110 mm Hg 03/19/2025 Weight 128 lbs 03/19/2025 BMI 21.97 kg/m2 03/19/2025 Encounters Encounter Location Date Provider Diagnosis [address] [address] 03/12/2025 MIKE DUNNE [address] [address] 02/04/2025 MIKE DUNNE Encounter for gynecological examination (general) (routine) without abnormal findings Z01.419 ; High risk heterosexual behavior Z72.51 and Abdominal distension (gaseous) R14.[address] [address] 03/19/2025 MIKE DUNNE Encounter for routin e checking of intrauterine contraceptive device Z30.431 and Presence of (intrauterine) contraceptive device Z97.[address] [address] 03/18/2025 MIKE DUNNE Assessments Encounter Date Diagnosis (ICD Code) Assessment Notes Treatment Notes Treatment Clinical Notes Section Notes 02/04/2025 Encounter for gynecological examination (general) (routine) without abnormal findings (ICD-10 - Z01.419) Discussed cervical cancer screening with cytology every 3 years as per ASCCP guidelines. Advised continued annual pelvic exams. Patient encouraged to increase her level of exercise. SBE technique encouraged/taught . Safe sexual practices and STI prevention discussed. 02/04/2025 High risk heterosexual behavior (ICD-10 - Z72.51) 03/19/2025 Encounter for routine checking of intrauterine contraceptive device (ICD-10 - Z30.431) Continue IUD, which appears to be in place. As for the nodule palpated on exam - advised patient to monitor symptoms. This could be endometriosis, which would not respond to the IUD but could respond to OCPs. It may also be a hematoma from vigorous relations. If symptoms don't resolve, then she can call back for further evaluation. 03/19/2025 Presence of (intrauterine) contraceptive device (ICD-10 - Z97.5) I reviewed the images taken - it appears to me that the IUD is in position. Message sent to radiologist to please review the images. Patient advised to continue to use backup contraception until we hear back from the radiologist. 02/04/2025 Abdominal distension (gaseous) (ICD-10 - R14.0) Plan Of Treatment Pending Test Test Name Order Date Test, Urine 09/20/2021 CHLAMYDIA GC AMP PROBE 01/12/2022 ULTRASOUND: PELVIC W/TRANSVAGINAL 2021 ULTRASOUND: PELVIC W/TRANSVAGINAL 2024 Chlamydia/GC Amplification-[id number] 2024 Next Appt Details Provider Name:MIKE Morataya, 02/10/2026 10:00:00 AM, [address], [address], [place], [address], Insurance Providers Payer Name Payer Address Payer Phone Subscriber Number Group Number Insured Name Patient Relationship to Insured Coverage Start Date Coverage End Date [employer] [place] [address] [place] [address] [id number] DANNIE PRECIADO Child - Insured has Financial Responsibility Medical (General) History Medical History History ICD Code Attention and concentration deficit R41. 840 Anxiety disorder, unspecified F41.9 Major depressive disorder, recurrent sev ere without psychotic features F33.2 Surgical History Surgery Date(Month/Year)
--- OUTSIDE RECORDS SUMMARY | 2025-08-02 17:13 | XMS_ITS ---
[facility] Name [facility] History of Medication Use Medication Directions Dispensed Refills Start Date End Date Stat us predniSONE (DELTASONE) 20 MG tablet Take 1 tablet (20 mg total) by mouth 2 (two) times a day. With food. 06/23/2024 06/27/2024 active fluticasone (FloNASE) 50 mcg/spray nasal spray 1 spray into each nostril daily. 06/23/2024 active amphetamine-dextroamp hetamine (ADDERALL XR) 30 MG 24 hr capsule TAKE 1 CAPSULE BY MOUTH DAILY IN THE MORNING 06/05/2024 active sertraline (ZOLOFT) 50 MG tablet Take 50 mg by mouth. 04/22/2024 active levonorgestrel (Kyleena) 19.5 MG IUD IUD by Intrauterine route. active Problems Problem Status Onset Date Problem Type Date of Resoluti on Source Acute bacterial sinusitis active EncounterDiagnosisAct CCT Encounters Encounter Type Encounter Reason Primary Diagnosis Location Date Ambulatory Sinus Problem Sinus Problem [facility] 06/[facility]/2024 Care Team Organization Name Specialty Phone Email Start Date End [facility] 06/23/2024 01/20/2025 [facility] 06/23/2024
--- OUTSIDE RECORDS SUMMARY | 2025-08-02 17:13 | XMS_ITS | Encounter Summary ---
Author Organization [facility] Address [address] [place], [place] [address] Phone Care Team Providers Care Colored Liquid Plastic Applier Name Role Phone Provider, López JENKINS Primary Care Provider [phone] Reason for Visit * Reason Onset Date Comments Med Refill 10/07/2020 Encounter Details Date Type Department Care Team (Late st Contact Info) Description 10/07/2020 [facility]ill [facility] [address] [address] Fabi Shaffer NP Anxiety and depression Social [...] depression documented in this encounter Care Teams Colored Liquid Plastic Applier Relationship Specialty Start Date End Date Provider, MD López [address] [place] [address] PCP - General Pediatrics 11/12/22 08/31/24 documented as of this encounter
--- OUTSIDE RECORDS SUMMARY | 2025-08-02 17:13 | XMS_ITS | Clinical Summary ---
Author Organization [facility] Address [address] [place] [address] Phone Care Team Providers Care Technology Trainer Name Role Phone Unavailable Primary Care Provider [...] of symptoms that would require speaking to stonecutter apprentice hand provider or going to ER. Attention deficit [...] bring about headaches again. Will try Adderall [id number] sent in as a partial fill request [...] looking to get IUD, wait list with [employer]. Assessment & Plan (02/01/2021 11:59 AM EDT): Did not respond great to the Apri. [place] more anxious on it, periods still painful. She is interested in getting an IUD but would like to stay on the pill until then. Numbers provided for [employer]. Assessment & Plan (10/24/2020 2:15 PM EST): [...] & Plan (01/03/2022 5:00 PM EST): Waiting stonecutter apprentice hand back from [facility]. Assessment & Plan (12/26/2021 7:06 PM [...] get her in. I also recommended trying [facility] or [facility]. She has been on a few [...] in the sertraline, may reach out to [facility] first, or she will talk [...] effective. I provided mom with number for [facility] and discussed website psychologytoday to find [...] 102 02/25/2020 4:33 PM EDT Temperature 36.8 C (98.2 F) 07/31/2022 5:58 PM EDT Respiratory Rate - - Oxygen Saturation 94% [...] 03/30/2003, Additional history exists Influenza Vaccines (#1) 2025 11/02/20 22, 08/16/2021, 07/27/2020, Additional history exists COVID-19 Vaccine (2024- 6 season) 2025 08/30/2021, 02/19/2021, 01/29/2021 Hepatitis B Vaccines Completed [...] Completed 07/27/2020, 06/15/2020 Procedures * Due to [place] state law, this organization might not be sharing sensitive test results. Procedure Name Priority Date/Time Associated Diagnosis Comments CHLAMYDIA AND GONORRHEA, AMPLIFIED Routine 12/25/2021 2:16 PM EST Abdominal pain, unspecified abdominal location from Last 3 Months or Most Recently Relevant to Health Maintenance Results * Due to [place] state law, this organization might not be sharing sensitive test results. * Chlamydia and Gonorrhea, Amplified (12/25/2021 2:16 PM EST) Chlamydia Trachomatis, DNA Probe NEGATIVE (NEG) [facility] Comment: No Chlamydia Trachomatis RNA detected in this patient's sample (REFERENCE RANGE/NORMAL VALUE: NOT DETECTED) Note: This test uses nnp- mediated amplification method to detect rRNA from C. Trachomatis URINE GC AMP PROBE NEGATIVE (NEG) [facility] Comment: No Neisseria Gonorrhoeae RNA detected in this patient's sample (REFERENCE RANGE/NORMAL VALUE: NOT DETECTED) NOTE: This test uses nnp-mediated amplification method to detect rRNA from N.Gonorrhoeae. [...] without risk of sexual abuse. Consult the [facility] if needed. Contact phone number . Therapeutic failure or success cannot be determined with the Aptima Combo2 assay since nucleic acid may persist following appropriate antimicrobial therapy. The Centers for Disease Control and Prevention (CDC) recommends confirmatory retesting using culture or a different nucleic acid amplification test when positive results occur, if indicated. Testing performed or reported by [facility], a Service of [facility], [address] [place] [address] Corona Vogt MD, Assembler Body [facility]# [id number] Urine (Urine) 12/25/2021 2:1 6 PM EST 12/25/2021 5:48 PM EST Fabi Shaffer INSECTICIDE MAKER LAB MICROBIOLOGY - GENER AL ORDERABLES Final Result UNA from Last 3 Months or Most Recently Relevant to Health Maintenance Insurance [employer]
== END 2025-08-02 15:37 | disposition home or self-care (01) ==
LOC: HO.HMCFM 15:06
PROVIDERS: PCP Nurse Practitioner Family; Visit Provider Nurse Practitioner Family
DX: F41.9 Anxiety disorder, unspecified (principal); F32.A Depression, unspecified; F90.9 Attention-deficit hyperactivity disorder, unspecified type

== ENCOUNTER → 2025-08-02 15:05 | Outpatient (BNVA) | payer BC, SELFPAY | PROVIDERS: PCP Nurse Practitioner Family; Visit Provider Nurse Practitioner Family | DX: F90.9 Attention-deficit hyperactivity disorder, unspecified type (principal); F41.9 Anxiety disorder, unspecified; F32.A Depression, unspecified | CPT/HCPCS: 96127 ==